=== PATIENT | female | born 1955 | race Caucasian/White ===

== ENCOUNTER → 2020-10-31 17:28 | Outpatient (CLI) | payer OTHER, SELFPAY ==
--- NOTE | ~2020-10-31 | MR_ITS ---
EXAMINATION: MR hip LT wo con DATE: 10/31/2020 18:58 INDICATION: Left hip pain TECHNIQUE: Magnetic resonance imaging (MRI) of the left hip was performed without intravenous contra st. Sequences included full-field axial PD-weighted FS FSE and T1-weighted FSE, coronal of the pelvis with PD-weighted FS FSE and T1-weighted FSE, small field of view of the left hip with axial PD-weigh malika FS FSE, sagittal PD-weighted FS FSE and coronal PD weighted FS FSE. Additional radial T1-weighted FGR oriented orthogonal to the acetabular rim were obtained for evaluation of the labrum. COMPARISON: None FINDINGS: Bones/labrum/cartilage: Alignment is normal. No fracture, avascular necrosis or pathologic marrow replacing process. The pro gression of moderate osteoarthritis at the left hip with increase in size of prominent subarticular c ystic change underlying a region of high-grade chondromalacia at the anterosuperior left acetabulum. No significant change in chondral ulceration with mild subarticular cystic change at the superomedial aspect of the left femoral head. Interval progression of now deep chondral ulceration without degene rative subchondral changes at the anterosuperior aspect of the left femoral head. Chronic degenerativ e tearing of the left acetabular labrum, anterosuperior portion which appears diminutive. Thickening and heterogeneous signal of the superolateral labrum. Again noted is mild subarticular cystic change along the superolateral rim of the acetabulum where there has been interval growth of marginal osteop hytes into the former region of the chondral labral junction. Similar findings are again suggested the right hip on the larger field of view images. There has been decrease in size of a prior large para labral cyst at the posterior right acetabulum. Interval progr ession of moderate to severe lumbar spondylosis. No significant interval change in a couple prominent Tarlov cysts at S2 with chronic remodeling and enlargement of the neural foramina more prominent on the left. Fluid: Likely reactive small bilateral hip joint effusions, left greater than right. Soft tissues: Normal and symmetric muscle bulk and signal in the pelvis and visualized proximal thighs. The iliopso as, gluteal and proximal hamstring tendons are normal. Again seen is mild diffuse bladder wall thicke yanely with trabeculated mucosal surface which could be seen with chronic outlet obstruction or neuroge aisha bladder. Limited evaluation of visceral organs of the pelvis is otherwise unremarkable. No patho logically enlarged pelvic/inguinal lymphadenopathy. IMPRESSION: 1. Interval progression of moderate left hip osteoarthritis with chronic labral degeneration and like ly reactive small left hip joint effusion. Similar findings again suggest at the right hip on the lar bhargav field of view images. 2. Interval progression of moderate to severe lower lumbar spondylosis. Reviewed, dictated and finalized at location B. IMPRESSION: 1. Interval progression of moderate left hip osteoarthritis with chronic labral degeneration and likely reactive small left hip joint effusion. Similar findin gs again suggest at the right hip on the larger field of view images. 2. Interval progression of moderate to severe lower lumbar spondylosis.
== END ==
PROVIDERS: PCP Family Medicine; Visit Provider Orthopaedic Surgery
DX: M16.12 Unilateral primary osteoarthritis, left hip (principal); M47.896 Other spondylosis, lumbar region
CPT/HCPCS: 73721

== ENCOUNTER 2020-11-13 14:01 | Outpatient (CLI) | payer OTHER, SELFPAY ==
--- NOTE | ~2020-11-13 | MM_ITS ---
EXAMINATION: MM screening [facility] BI w addis HISTORY: Screening mammogram TECHNIQUE: Craniocaudal and mediolateral oblique 3-D tomosynthesis images were obtained and synthetic 2-D images were generated. CAD analysis was submitted and interpreted. COMPARISON: 05/04/2018, 12/07/2016, 09/20/2014 BREAST PARENCHYMAL COMPOSITION: The breasts are heterogeneously dense, which may obscure small masses . FINDINGS: There is no evidence of suspicious mass, calcification, or architectural distortion to sugg est malignancy in either breast. There has been no suspicious interval change. IMPRESSION: 1. No mammographic evidence of malignancy. 2. Recommend routine screening mammography in one year. BI-RADS Category 1: Negative Reviewed, dictated and finalized at location A.
--- NOTE | ~2020-11-13 | DEXA_ITS ---
Bone Density Report Name: Emiliana Oro Age: 65 Sex: Female Ethnicity: White Date of : 1955 Indication: postmenopausal; parental hip fracture; seizure disorder; Referring Provider: Moody Conti Study: Bone densitometry was performed. Exam Date: November 13, 2020 Accession number: [id number] Bone Density: Region BMD T-score Z-score Classification AP Spine (L1-L4) 1.143 0.9 2.6 Normal Femoral Neck (Left) 0.692 -1.4 0.1 Osteopenia Total Hip (Left) 0.948 0.0 1.2 Normal Total Hip Bilateral Avg 0.931 -0.1 1.1 Normal Femoral Neck (Right) 0.703 -1.3 0.2 Osteopenia Total Hip (Right) 0.914 -0.2 1.0 Normal World Health Organization criteria for BMD impression classify patients as: Normal (T-score at or above -1.0), Osteopenia (T-score between -1.0 and -2.5), or Osteoporosis (T-score at or below -2.5). 10-year Fracture Risk(1): Major Osteoporotic Fracture 16% Hip Fracture 0.8% Reported Risk Factors: [place] (), Neck BMD=0.692, BMI=28.9, parental fracture (1) FRAX(R) Version 3.08. Fracture probability calculated for an untreated patient. Fracture probability may be lower if the patient has received treatment. Previous Exams: Region Exam Age BMD T-score BMD Change BMD Change Date g/cm2 vs Baseline vs Previous AP Spine(L1-L4) 11/13/2020 65 1.143 0.9 -0.097(-7.8%)# -0.058(-4.8%)* 05/04/2018 62 1.201 1.4 -0.039(-3.1%)# 0.056(4.9%)* 09/20/2014 59 1.145 0.9 -0.095(-7.6%)# -0.011(-0.9%)# 03/23/2012 56 1.156 1.0 -0.084(-6.7%)# -0.080(-6.4%)# 09/02/2006 51 1.235 1.7 -0.004(-0.3%) -0.004(-0.3%) 06/30/2004 48 1.239 1.7 Total Hip(Left) 11/13/2020 65 0.948 0.0 -0.037(-3.7%)# 0.040(4.4%)* 05/04/2018 62 0.908 -0.3 -0.077(-7.8%)# -0.054(-5.7%)* 09/20/2014 59 0.962 0.2 -0.022(-2.3%)# 0.066(7.4%)# 03/23/2012 56 0.896 -0.4 -0.089(-9.0%)# -0.077(-7.9%)# 09/02/2006 51 0.973 0.3 -0.012(-1.2%) -0.012(-1.2%) 06/30/2004 48 0.984 0.3 Total Hip(Right) 11/13/2020 65 0.914 -0.2 -0.046(-4.8%)# -0.009(-1.0%) 05/04/2018 62 0.923 -0.2 -0.037(-3.8%)# -0.001(-0.2%) 09/20/2014 59 0.925 -0.1 -0.035(-3.7%)# -0.066(-6.7%)# 03/23/2012 56 0.991 0.4 0.031(3.2%)# 0.045(4.7%)# 09/02/2006 51 0.946 0.0 -0.014(-1.5%) -0.014(-1.5%) 06/30/2004 48 0.960 0.1 *Denotes significance at 95% confidence level, LSC for AP Spine = 0.022 g/cm2, LSC for Total Hip = 0.027 g/cm2 Clinical Information Provided by Patient:
== END 2020-11-13 14:02 | disposition home or self-care (01) ==
LOC: ANHIMG 14:03
PROVIDERS: PCP Family Medicine; Visit Provider Physician Assistant
DX: Z12.31 Encounter for screening mammogram for malignant neoplasm of breast (principal); Z78.0 Asymptomatic menopausal state; M85.852 Other specified disorders of bone density and structure, left thigh; M85.851 Other specified disorders of bone density and structure, right thigh
CPT/HCPCS: 77063; 77067; 77080

== ENCOUNTER 2020-12-27 12:57 | Outpatient (CLI) | payer OTHER, SELFPAY ==
[2020-12-27 14:36] LABS: Basophils Percent Auto 0.5 % (0.2-1.2); Hematocrit 37.3 % (37.0-47.0); Hemoglobin 11.9 g/dL (12.0-15.0); Immature Granulocyte Absolute 0.02 K/mm3 (0.00-0.031); Immature Granulocyte Percent A 0.3 % (0-0.5); Lymphocytes Absolute Auto 1.98 K/mm3 (0.9-3.2); Lymphocytes Percent Auto 29.8 % (18.3-44.2); Mean Corpuscular HGB Conc 31.9 g/dl (32-36); Mean Corpuscular Volume 90.8 fl (80-100); Mean Platelet Volume 10.3 fl (7.4-10.4); Monocytes Absolute Auto 0.6 K/mm3 (0.1-0.6); Monocytes Percent Auto 9.2 % (2.6-8.5); Neutrophils Percent Auto 60.2 % (45.5-73.1); Platelet Count Result 292 k/mm3 (150-375); Red Blood Count 4.11 M/mm3 (4.2-5.4); Red Cell Distribution Width 12.9 % (11.5-14.5); White Blood Count 6.6 K/mm3 (4.5-10.0)
[2020-12-27 14:45] LABS: Albumin Level 4.4 g/dL (3.5-5.1); Anion Gap 9 mmol/L (8-16); Blood Urea Nitrogen 19 mg/dL (7-17); Calcium 9.3 mg/dL (8.4-10.2); Carbon Dioxide 29 mmol/L (22-30); Chloride 103 mmol/L (98-107); Estimated Glomerular Filt Rate > 60; Glucose 86 mg/dL (65-105); Potassium 4.1 mmol/L (3.4-5.0); Sodium 141 mmol/L (137-145)
[2020-12-27 15:31] LABS: Urine Cotinine NEGATIVE
[2020-12-27 17:12] LABS: Hemoglobin A1C 5.7 % (<5.7)
== END 2020-12-27 12:58 | disposition home or self-care (01) ==
LOC: ANHSURGERY 13:02
PROVIDERS: PCP Family Medicine; Visit Provider Orthopaedic Surgery
DX: M16.12 Unilateral primary osteoarthritis, left hip (principal); Z01.818 Encounter for other preprocedural examination
CPT/HCPCS: 80048; 80307; 82040; 83036; 85025; 87070

== ENCOUNTER → 2021-01-10 04:38 | Outpatient (CLI) | payer OTHER, SELFPAY ==
[2021-01-10 18:47] LABS: SARS-CoV-2 RNA PCR Negative
== END ==
PROVIDERS: PCP Family Medicine; Visit Provider Orthopaedic Surgery
DX: Z01.812 Encounter for preprocedural laboratory examination (principal); Z20.822 Contact with and (suspected) exposure to COVID-19
CPT/HCPCS: C9803; U0003; U0005

== ENCOUNTER 2021-01-13 00:54 | Day surgery (SDC) | payer OTHER, SELFPAY ==
[2020-12-27 13:05] VITALS: BMI 28.9
[2020-12-27 13:59] VITALS: BP 117/75; PULSE 70; RESP 16; TEMP 37.3; O2SAT 97
--- NOTE | 2021-01-10 13:22 | PM.IMHP ---
H&P: HPI History of Present Illness Date/Time: 01/10/21 13:22 65-year-old female patient of who presents today for a left anterior total hip arthroplasty. She has had progressive worsening of her symptoms with her left arthritic hip over the course of last year. She has had a recent MRI scan which shows that she has moderately severe arthritis in the hip with a prominent acetabular cyst. She has been on anti-inflammatories for over year. She is using cane on a more regular basis due to pain in the left groin and anterior lateral hip. She has reached a point where she feels she would rather proceed with total hip arthroplasty at this point continue nonsurgical treatment. <ILEANA Lou - Last Filed: 01/10/21 13:30> Chief Complaint: left hip DJD <ILEANA Lou - Last Filed: 01/10/21 13:30> Review of Systems Review of Systems: All systems reviewed & are unremarkable except as noted in HPI and below <ILEANA Lou - Last Filed: 01/10/21 13:30> [facility] Past Medical History Medical History: Medical History (Updated 01/10/21 @ 15:58 by Bear Peterson MD) Anxiety Depression Gastro-esophageal reflux disease without esophagitis Hypothyroidism, unspecified Osteoarthritis Other hyperlipidemia Overweight (BMI 25.0-29.9) Seizure <ILEANA Lou - Last Filed: 01/10/21 13:30> Family History Family History: Family History Mother Hypertension Family history of cardiovascular disease Family history of Parkinson's disease Grandparent Cerebrovascular accident Sibling Carcinoma of colon, Onset Age: 47 Other Depression Family history of hypercholesterolemia <ILEANA Lou - Last Filed: 01/10/21 13:30> Social History Social History: Social History Years smoked: 5 Tobacco type: cigarettes Smoking end date: 07/26/11 Additional smoking assessment comments: DENIES ANY FORM OF TOBACCO USE Alcohol intake: current Drinks per week: 10 Living arrangements: with friend(s) Spiritual care concerns: No <ILEANA Lou - Last Filed: 01/10/21 13:30> Meds Home Medications and Allergies Home medications: Home Medications Medication Instructions Recorded Confirmed Type simvastatin 40 mg tablet 40 mg PO DAILY #90 tablet 12/08/19 01/10/21 Rx levothyroxine 50 mcg tablet 50 mcg PO DAILY #90 tablet 01/08/20 01/10/21 Rx omeprazole 20 mg capsule,delayed See Rx Instructions .ROUTE 01/29/20 01/10/21 Rx release .COMPLEX #90 cap diclofenac sodium 75 mg 50 mg PO QAM tablet 10/01/20 01/10/21 History tablet,delayed release paroxetine HCl 10 mg tablet 10 mg PO DAILY #90 tablet 10/22/20 01/10/21 Rx calcium carbonate-vitamin D3 2 tablet PO BID 12/27/20 01/10/21 History [Calcium + D] cholecalciferol (vitamin D3) 1,250 mcg PO WEEKLY 12/27/20 01/10/21 History <ILEANA Lou - Last Filed: 01/10/21 13:30> Allergies/Adverse reactions: Allergies Allergy/AdvReac Type Severity Reaction Status Date / Time No Known Allergies Allergy Verified 01/10/21 13:55 <ILEANA Lou - Last Filed: 01/10/21 13:30> Exam Narrative: Exam Narrative: 65-year-old female very alert pleasant. She is 5 ft 4 and 168 lb. She walks with a noticeable limp. She has normal sensation left lower extremity. 2+ dorsalis pedis and trace posterior tibial artery pulse palpable. Normal skin around the hip and groin region. No edema in left lower extremity leg lengths appear to be equal. Her left hip flexes to 120 with moderate groin pain internally rotates to 0 with severe anterior groin pain externally rotates 30 with moderate groin pain. Greater trochanters nontender. . <ILEANA Lou - Last Filed: 01/10/21 13:30> Resp: Auscultation: clear to auscultation bilaterally <ILEANA Lou - Last Filed: 01/10/21 13:30> Cardio: Rate: regula
--- NOTE | 2021-01-10 15:56 | WPDANESEPPF ---
Anes - Initial Pre Proc Eval Procedure: Operation Date: 01/13/21 07:30 Proposed Procedures p Left Total Hip Arthroplasty, Direct Anterior Approach - Aubrey Connolly MD Date/Time: 01/10/21 15:56 Surgeon: Aubrey Connolly MD Pre Op Diagnosis: OA left hip Patient Data Age: 65 Gender: F Height: 1.64 m Weight: 77.6 kg Last Vital Signs Temp 37.3 C 12/27/20 13:59 Pulse 70 12/27/20 13:59 Resp 16 12/27/20 13:59 BP 117/75 12/27/20 13:59 Pulse Ox 97 12/27/20 13:59 Allergies Allergy/AdvReac Type Severity Reaction Status Date / Time No Known Allergies Allergy Verified 01/10/21 13:55 Home Medications Medication Instructions Recorded Confirmed Type simvastatin 40 mg tablet 40 mg PO DAILY #90 tablet 12/08/19 01/10/21 Rx levothyroxine 50 mcg tablet 50 mcg PO DAILY #90 tablet 01/08/20 01/10/21 Rx omeprazole 20 mg capsule,delayed See Rx Instructions .ROUTE 01/29/20 01/10/21 Rx release .COMPLEX #90 cap diclofenac sodium 75 mg 50 mg PO QAM tablet 10/01/20 01/10/21 History tablet,delayed release paroxetine HCl 10 mg tablet 10 mg PO DAILY #90 tablet 10/22/20 01/10/21 Rx calcium carbonate-vitamin D3 2 tablet PO BID 12/27/20 01/10/21 History [Calcium + D] cholecalciferol (vitamin D3) 1,250 mcg PO WEEKLY 12/27/20 01/10/21 History Patient hx anesthesia problems: none Family hx anesthesia problems: none PMFSH Past Medical History Medical History (Updated 01/10/21 @ 15:58 by Bear Peterson MD) Anxiety Depression Gastro-esophageal reflux disease without esophagitis Hypothyroidism, unspecified Osteoarthritis Other hyperlipidemia Overweight (BMI 25.0-29.9) Seizure Family History Family History Mother Hypertension Family history of cardiovascular disease Family history of Parkinson's disease Grandparent Cerebrovascular accident Sibling Carcinoma of colon, Onset Age: 47 Other Depression Family history of hypercholesterolemia Social History Social History Years smoked: 5 Tobacco type: cigarettes Smoking end date: 07/26/11 Additional smoking assessment comments: DENIES ANY FORM OF TOBACCO USE Alcohol intake: current Drinks per week: 10 Living arrangements: with friend(s) Spiritual care concerns: No Anes - Eval Final PreProcedure Day of Procedure 01/10/21 15:56 Patient weight: overweight Heart: regular rate and rhythm Lungs: clear to auscultation and normal air movement Airway: Mallampati scale class II Neurological: alert and oriented Last oral intake: >/= 8 hours ASA classification: II Emergent: no Anesthetic plan: proceed Anesthesia type and monitoring: general ETT Informed Consent: The patient's anesthetic plan and its attendant risks and benefits were discussed with the patient/family/POA. Questions were solicited and answers provided to the satisfaction of the patient/family/POA.
[2021-01-13] VITALS (19 sets, daily range): BP systolic 103–137; BP diastolic 55–81; PULSE 16–89; RESP 10–93; TEMP 36.2–36.8; O2SAT 83–100; BMI 32.1
--- NOTE | ~2021-01-13 | XR_ITS ---
EXAMINATION: XR hip LT 1V w AP pelvis DATE: 01/13/2021 11:45 INDICATION: Anterior proximal left total hip arthroplasty TECHNIQUE: Anteroposterior view of the pelvis excluding the iliac crests and cross-table lateral view s of the left hip were obtained. COMPARISON: 09/12/2018 FINDINGS: Noncemented left total hip arthroplasty which appears well seated in near-anatomic alignment. The hudson tabular component is affixed with a single screw. No fractures. Mild right hip osteoarthritis. Surgic al drain and expected soft tissue gas at the operative bed. IMPRESSION: 1. Expected appearance post left total hip arthroplasty which is in near-anatomic alignment with no f racture or other acute osseous abnormality. Reviewed, dictated and finalized at location A. IMPRESSION: 1. Expected appearance post left total hip arthroplasty which is in near-anatom ic alignment with no fracture or other acute osseous abnormality.
--- NOTE | ~2021-01-13 | XR_ITS ---
EXAMINATION: XR surgery orthopedic DATE: 01/13/2021 11:26 INDICATION: Anterior approach left total hip arthroplasty TECHNIQUE: Frontal fluoroscopic image of the left hip was obtained during procedure performed by Dr. Connolly. Radiologist was not present for the imaging or procedure. The amount of fluoroscopy time use d during this procedure was 0.9 minutes. COMPARISON: None. FINDINGS: Left total hip arthroplasty which appears well-seated in normal alignment. The acetabular component i s affixed with at least a single screw. No fracture. IMPRESSION: 1. Expected appearance during left total hip arthroplasty. Reviewed, dictated and finalized at location A.
[2021-01-13] MEDS: LACTATED RINGERS 1,000 ML 30 ML IV CONT (06:35)
[2021-01-13] MEDS: ACETAMINOPHEN 500 MG TABLET 1000 MG PO ×3 (06:35→17:44)
[2021-01-13] MEDS: TRANEXAMIC ACID 1,000MG/ISO100 1,000 MG/100 ML BAG 200 MG IVPB (06:46)
--- NOTE | 2021-01-13 07:16 | WPDHPUPDATE1 ---
History and Physical Update Update Date/Time: 01/13/21 07:16 History and Physical has been reviewed, including an updated exam of the patient. There are NO changes in the patient's condition. Risks, benefits, and alternatives have been discussed and questions answered. Patient agrees to proceed with procedure.
[2021-01-13] MEDS: ceFAZolin 2 GM/D5W 50 ML 2 GM/50 ML BAG IVPB (07:54)
[2021-01-13] MEDS: ceFAZolin SODIUM 1 GM VIAL 3 GM IRRIGATION (08:38)
[2021-01-13] MEDS: TRANEXAMIC ACID 1,000 MG/10 ML AMPUL 1000 MG IV PUSH (11:09)
[2021-01-13] MEDS: ceFAZolin SODIUM 1 GM VIAL IV PUSH (11:09)
--- NOTE | 2021-01-13 11:33 | W.PM.PROC2 ---
Procedure Note - Detailed Date of Procedure 01/13/21 Pre-op Diagnosis OA left hip Post-op Diagnosis same Procedure Performed Direct anterior approach left total hip arthroplasty Surgeon Aubrey Connolly MD Road Crew Member [place]onte Anesthesia general Indications Pain osteoarthritis Findings Same Description of Procedure Patient was brought to the operating room general anesthesia was administered. She received 2 g Ancef weight based vancomycin 1 g of tranexamic acid preoperatively. The feet were padded and boots applied and she was transferred to the OSI [place] table. SCDs were applied to the legs. The left hip was prepped draped usual fashion. A 10 cm longitudinal incision was made starting 3 cm lateral to the ASIS. Dissection was carried down to the fascia which was longitudinally incised and elevated off the anterior 50% of the tensor fascia cristiano muscle. Interval between tensor fascia cristiano and rectus femoris developed. Crossing branches of ascending branch lateral femoral circumflex vessels were ligated with suture and divided. Capsule was exposed. Hip was abducted internally rotated and gluteus minimus elevated off the lateral capsule. Capsule was incised and a femoral neck osteotomy was performed. The head was removed without difficulty and measured 50 mm in diameter. The acetabulum was exposed and the minimal residual labrum excised. We looked at our neck cut and a saw there was a little bit long still. An additional 5 mm of bone removed from the femoral neck cut at this time. The leg was externally rotated extended in the interval between piriformis tendon and conjoined tendon incised which allowed the conjoined tendon to recessed little bit and allowed the piriformis to flip nicely posteriorly. A little bit of the lateral tip of the lateral capsular flap was excised. With the leg back horizontal acetabulum was exposed and we medialized with a 44 Reamer to the floor of the fovea. We reamed up to 50 mm which did not quite get the periphery. Fifty-one Reamer was fully seated and we lightly touched with the 52 Reamer and impacted the 52 mm cup which obtained excellent press fit. It would not seat the last mm medially. A screw was placed into the ilium. At this point I could see that we had a loose fragment of bone anterior superiorly which represented the acetabular wall in that area we can by the anterior superior acetabular cyst. We removed that loose fragment of bone and thoroughly curetted the cyst which was not visible from the intra-articular reaming but was visible from just anterior superior to the edge of the acetabular shell. When we carefully removed the cyst membrane we were able to pack some bone into the cyst cavity the portion that was contained and we used cancellous bone from the femoral head to do that. We removed inferior osteophyte as well. The 36 mm inner diameter acetabular shell was chosen impacted without difficulty. The leg was ex thoroughly rotated extended and we broached up to a size 3 which had torsional stability. We trialed and with the 1.5 neck the hip was grossly unstable. The 5 neck with stable but a little bit on the loose side still bordering on a little too loose. We looked at this under x-ray and I could see that the 3 stem was not optimally filling the canal. It was at the correct neck height though and we therefore calcar plane the neck onto the 3 broach removed 3 broach and we were able the sink the 4 broach to the level of the calcar plane neck cut and this had excellent stability. It was a more of an appropriate alignment taking it few out of the few degrees of varus the 3 stem was an. We trialed again and the 1.5 was too loose again the 5 was stable. This had a very appropriate feel. Ample shock but stable. With the fluoro we could see that the broach neck construct was at the same height as it was with the preoperative templating. The hip was again dislocated the broach confirmed to be quite stable w
[2021-01-13] MEDS: fentaNYL CITRATE INJ (*CRX) 100 MCG/2 ML VIAL 25 MCG IV PUSH ×8 (12:00→12:58)
[2021-01-13] MEDS: HYDROmorphone HCL INJ (*CRX) 1 MG/ML SYR 0.25 MG IV PUSH ×3 (13:01→13:18)
--- NOTE | 2021-01-13 13:35 | ADMGEN ---
This patient, Emiliana Oro, was admitted to 2 Medical Room 256-. Patient/family oriented to hospital policies and general routines including ID bracelet, bed and alarms, visiting hours, pain management, procedures, bathroom and other care routines, personal items, smoking policy, room service/diet, and visiting hours. Information on how to activate the Rapid Response Team has been discussed. Patient/Family are encouraged to report perceived risks to care and to ask questions if they do not understand what they are told or what they should do.
--- NOTE | 2021-01-13 13:57 | PCPTNOTE ---
Attempted PT eval. Pt drowsy and having pain. Will try again at later time.
[2021-01-13] MEDS: SODIUM CHLORIDE 0.9% IV 1,000 ML 125 ML IV CONT (14:20)
[2021-01-13] MEDS: ONDANSETRON INJ 4 MG/2 ML VIAL IV PUSH (15:46)
[2021-01-13] MEDS: oxyCODONE HCL (*CRX) 5 MG TAB IR PO (17:44)
[2021-01-13] MEDS: CELECOXIB 200 MG CAPSULE PO (18:56)
[2021-01-13] MEDS: SENNA/DOCUSATE SODIUM TABLET 2 TAB PO (21:45)
[2021-01-13] MEDS: APIXABAN 2.5 MG TABLET PO (21:45)
[2021-01-13] MEDS: FAMOTIDINE 20 MG TABLET PO (21:45)
[2021-01-13] MEDS: oxyCODONE HCL (*CRX) 2.5 MG TAB IR PO (21:46)
[2021-01-14] MEDS: ACETAMINOPHEN 500 MG TABLET 1000 MG PO ×3 (00:04→12:18)
[2021-01-14] MEDS: oxyCODONE HCL (*CRX) 2.5 MG TAB IR PO ×4 (00:05→12:18)
[2021-01-14 03:15] VITALS: BP 126/74; PULSE 82; RESP 18; TEMP 36.7; O2SAT 98
[2021-01-14 05:39] LABS: Basophils Percent Auto 0.1 % (0.2-1.2); Hematocrit 27.8 % (37.0-47.0); Hemoglobin 9.1 g/dL (12.0-15.0); Immature Granulocyte Absolute 0.03 K/mm3 (0.00-0.031); Immature Granulocyte Percent A 0.3 % (0-0.5); Lymphocytes Absolute Auto 1.11 K/mm3 (0.9-3.2); Lymphocytes Percent Auto 9.9 % (18.3-44.2); Mean Corpuscular HGB Conc 32.7 g/dl (32-36); Mean Corpuscular Hemoglobin 29.4 pg (26-34); Mean Corpuscular Volume 89.7 fl (80-100); Mean Platelet Volume 10.4 fl (7.4-10.4); Monocytes Percent Auto 8.8 % (2.6-8.5); Neutrophils Percent Auto 80.9 % (45.5-73.1); Platelet Count Result 251 k/mm3 (150-375); Red Cell Distribution Width 13.1 % (11.5-14.5); White Blood Count 11.2 K/mm3 (4.5-10.0)
[2021-01-14 05:48] LABS: Anion Gap 6 mmol/L (8-16); Blood Urea Nitrogen 11 mg/dL (7-17); Calcium 7.9 mg/dL (8.4-10.2); Carbon Dioxide 27 mmol/L (22-30); Chloride 101 mmol/L (98-107); Estimated CRCL calculation 74 ml/min; Estimated Glomerular Filt Rate > 60; Glucose 130 mg/dL (65-105); Potassium 4.4 mmol/L (3.4-5.0); Sodium 134 mmol/L (137-145)
[2021-01-14] MEDS: LEVOTHYROXINE SODIUM 50 MCG TABLET PO (06:02)
--- NOTE | 2021-01-14 06:24 | PM.PNORT ---
Progress Note: A&P Additional Plan POD 1 alert avss , labs-noted, dressing dry, drain to come out this am, pt having min pain at rest moderate pain with ambulation, pt was very sleepy last night-may have been narcotics, reduced the scheduled dose, pt is on celebrex as well. plan to have pt work with PT today then send home later today Subjective Subjective Date/Time Seen: 01/14/21 06:24 Objective Data Vital Signs Vital Signs: Vital Signs - 24 hr 01/13/21 06:30 01/13/21 11:41 01/13/21 11:55 Temperature 36.2 C L 36.5 C Pulse Rate 88 88 75 Respiratory Rate 18 10 L 10 L Blood Pressure 137/80 125/81 128/61 Pulse Oximetry 96 100 100 01/13/21 12:10 01/13/21 12:25 01/13/21 12:40 Temperature Pulse Rate 84 70 77 Respiratory Rate 10 L 17 13 Blood Pressure 123/63 119/79 125/55 L Pulse Oximetry 100 100 98 01/13/21 12:55 01/13/21 13:10 01/13/21 13:25 Temperature Pulse Rate 89 71 77 Respiratory Rate 10 L 13 12 Blood Pressure 120/65 114/65 106/65 Pulse Oximetry 95 98 98 01/13/21 13:30 01/13/21 13:35 01/13/21 13:45 Temperature 36.5 C 36.3 C L Pulse Rate 72 16 L Respiratory Rate 16 93 H Blood Pressure 110/70 110/60 Pulse Oximetry 99 98 83 L 01/13/21 14:15 01/13/21 15:15 01/13/21 18:30 Temperature 36.3 C L 36.6 C 36.3 C L Pulse Rate 87 73 84 Respiratory Rate 16 17 18 Blood Pressure 116/70 103/70 114/74 Pulse Oximetry 98 95 98 01/13/21 19:15 01/13/21 20:00 01/13/21 23:05 Temperature 36.8 C Pulse Rate 81 Respiratory Rate 16 Blood Pressure 117/70 Pulse Oximetry 97 97 97 01/13/21 23:15 01/14/21 03:15 Temperature 36.8 C 36.7 C Pulse Rate 85 82 Respiratory Rate 16 18 Blood Pressure 110/69 126/74 Pulse Oximetry 97 98 Intake/Output Intake/Output: Intake & Output 01/11/21 01/12/21 01/13/21 01/14/21 23:59 23:59 23:59 23:59 Intake Total 2530 550 Output Total 0 1280 Balance 2530 -730 Meds/Results Medications: Active Medications Generic Name Dose Route Start Last Admin Trade Name Freq PRN Reason Stop Dose Admin Acetaminophen 1,000 mg 01/13/21 13:30 01/14/21 05:04 Acetaminophen 500 Mg Tablet PO 1,000 mg Q6HR EDISON Administration Al Hydrox/Mg Hydrox/Simethicone 30 ml 01/13/21 13:30 Mag Hydrox/Al Hydrox/Simeth 30 Ml Udc PO Q6H PRN Indigestion Apixaban 2.5 mg 01/13/21 21:00 01/13/21 21:45 Apixaban 2.5 Mg Tablet PO 02/17/21 09:01 2.5 mg Q12HR EDISON Administration Bisacodyl 10 mg 01/13/21 13:30 Bisacodyl 10 Mg Suppository RECTAL DAILY PRN Constipation Calcium Carbonate 1,000 mg 01/13/21 17:00 01/13/21 21:45 Calcium/Vitamin D 500 Mg Tablet PO 1,000 mg BID EDISON Administration Celecoxib 200 mg 01/14/21 09:00 Celecoxib 200 Mg Capsule PO DAILY EDISON Ergocalciferol 50,000 unit 01/15/21 09:00 Ergocalciferol 50,000 Unit Capsule PO We@0900 EDISON Famotidine 20 mg 01/13/21 21:00 01/13/21 21:45 Famotidine 20 Mg Tablet PO 20 mg Q12HR EDISON Administration Hydroxyzine HCl 50 mg 01/13/21 13:30 Hydroxyzine Hcl 25 Mg Tablet PO Q4H PRN Itching Vancomycin HCl 1,000 mg in 250 mls @ 250 mls/hr 01/13/21 19:00 01/14/21 06:02 Vancomycin 1,000 Mg/D5w 250 Ml IVPB 01/14/21 07:59 250 mls/hr Q12H EDISON Administration Cefazolin Sodium 1 gm in 50 mls @ 100 mls/hr 01/13/21 16:00 01/14/21 00:34 Ancef 1 Gm/D5w 50 Ml Pm IVPB 01/14/21 08:29 100 mls/hr Q8H EDISON Infusion Levothyroxine Sodium 50 mcg 01/14/21 06:30 01/14/21 06:02 Levothyroxine Sodium 50 Mcg Tablet PO 50 mcg DAILY@0630 EDISON Administration Magnesium Hydroxide 30 ml 01/13/21 13:30 Magnesium Hydroxide Susp 30 Ml Udc PO BID PRN Constipation Morphine Sulfate 2 mg 01/13/21 13:30 Morphine Sulfate (*Crx) 2 Mg/Ml Inj IV PUSH Q4H PRN Pain Rated 7-10 Naloxone HCl 0.1 mg 01/13/21 13:30 Naloxone Hcl 0.4 Mg/Ml Vial IV PUSH Q2M PRN Opiate Reversal Ondansetron HCl
--- NOTE | 2021-01-14 06:33 | PM.DS ---
DS: Admitting Diagnosis Admitting Diagnosis Admitting Diagnosis: right hip DJD DS: Discharge Diagnosis Discharge Diagnosis (1) History of total hip arthroplasty: Code(s): Z96.649 - Presence of unspecified artificial hip joint Status: Acute DS: Summary Hospital Course Hospital Course: stable Time Spent with Patient Time attestation: Total time spent providing and/or coordinating discharge services: 65-year-old female who underwent a left anterior total hip arthroplasty on 01/13/2021. Underwent procedure on any complications postoperatively she has been afebrile vital signs stable, neurovascularly she is intact, wound is dry. Has a light dressing over it. Her drain has been removed. She has 50% weight-bearing on the left leg with a walker for the 1st month period time surgery her bones were little soft. She also a cyst in the superior acetabulum that was bone grafted. He is on Eliquis for 5 weeks for DVT prophylaxis. She is on Celebrex 200 mg once a day for the 1st 2 weeks for heterotopic bone prophylaxis. She is taking scheduled Tylenol as well as oxycodone 5 mg for pain. She will also go home on MiraLax and Senokot. Patient was advised to keep leg elevated at home. Hemoglobin on date of discharge is 9.1, patient was asymptomatic from that. She will go home on a regular diet. The patient was advised any questions or concerns when she goes home she should call the office otherwise see her at her appointed dates DS: Data Data Completed and Pending Labs on day of discharge: Labs from last 24 hours 01/14/21 01/14/21 01/13/21 05:31 05:31 06:33 WBC 11.2 H RBC 3.10 L Hgb 9.1 L Hct 27.8 L MCV 89.7 MCH 29.4 MCHC 32.7 RDW 13.1 Plt Count 251 MPV 10.4 Immature Gran % (Auto) 0.3 Neut % (Auto) 80.9 H Lymph % (Auto) 9.9 L Henry % (Auto) 8.8 H Eos % (Auto) 0.0 Baso % (Auto) 0.1 L Lymph # (Auto) 1.11 Henry # (Auto) 1.0 H Eos # (Auto) 0.0 Baso # (Auto) 0.0 Abs Immat Gran (auto) 0.03 Absolute Neuts (auto) 9.0 H Absolute Nucleated RBC 0.0 Nucleated RBC % 0.0 Sodium 134 L Potassium 4.4 Chloride 101 Carbon Dioxide 27 Anion Gap 6 L BUN 11 D Creatinine 0.70 Estim Creat Clear Calc 74 Estimated GFR > 60 Glucose 130 H Calcium 7.9 L Blood Type A Positive Antibody Screen Negative Discharge Plan Discharge Patient Disposition: Home, Self-Care Discharge Instructions: AUBREY CONNOLLY M.D [facility], [place] [id number] [place] [address] POST-OPERATIVE DISCHARGE INSTRUCTIONS ANTERIOR TOTAL HIP ARTHROPLASTY 1. Move toes/feet up and down every hour while awake. 2. Be up walking every hour while awake. 3. Use cane in hand opposite of side of hip surgery or walker as comfort allows. Avoid sitting in a chair unless eating, receiving visitors or using the toilet. 4. When resting, lie on back with leg elevated above heart to minimize swelling. Significant swelling could indicate a blood clot and if this occurs, call the office (or go to the ER) to have a venous ultrasound performed. 5. Wound Care: Keep dry sponge on wound for 2 weeks. Use minimal tape. 6. Follow weight bearing status as instructed. Patient is 50% WB with walker for 1 month 7. May shower with dressing off. Patient Instructions: Pain Management (DC), Hip Arthroscopy (DC) Follow-up/Referrals: Aubrey Connolly MD [Physician] - Keep Reg. Scheduled Appt. Discharge Medications: New acetaminophen 500 mg Tablet 1,000 mg PO Q6HR Qty: 90 RF: 0 Eliquis 2.5 mg Tablet 2.5 mg PO Q12HR Qty: 69 RF: 0 celecoxib [Celebrex] 200 mg Capsule 200 mg PO DAILY Qty: 14 RF: 0 sennosides-docusate sodium [Senokot-S] 8.6-50 mg Tablet 2 tab-cap PO BID Qty: 60 RF: 0 polyethylene glycol 3350 [Miralax] 17 gram Powder In Packet 17 g PO QAM Qty: 30 RF: 0 oxycodo
[2021-01-14 07:15] VITALS: BP 110/54; PULSE 70; RESP 16; TEMP 35.8; O2SAT 100
[2021-01-14] MEDS: APIXABAN 2.5 MG TABLET PO (08:26)
[2021-01-14] MEDS: CELECOXIB 200 MG CAPSULE PO (08:26)
[2021-01-14 08:27] VITALS: RESP 16; O2SAT 100
[2021-01-14] MEDS: polyethylene glycoL 3350 17 GM POWD.PACK PO (08:27)
[2021-01-14] MEDS: PARoxetine 10 MG TABLET PO (08:27)
[2021-01-14] MEDS: FAMOTIDINE 20 MG TABLET PO (08:27)
[2021-01-14] MEDS: SENNA/DOCUSATE SODIUM TABLET 2 TAB PO (08:27)
[2021-01-14] MEDS: SIMVASTATIN 20 MG TABLET 40 MG PO (08:28)
--- NOTE | 2021-01-14 08:48 | WPDANESPN ---
Anes - Prog Note Post-Op Date/Time: 01/14/21 08:48 Cardiovascular status: normal Respiratory status: normal Airway patency: baseline Mental status: baseline Post-Op hydration status: normal Vital Signs: Last Vital Signs Temp 36.7 C 01/14/21 03:15 Pulse 82 01/14/21 03:15 Resp 18 01/14/21 03:15 BP 126/74 01/14/21 03:15 Pulse Ox 98 01/14/21 03:15 Pain Score (VAS): 3 I/O: Intake & Output 01/13/21 01/14/21 01/14/21 23:59 07:59 15:59 Intake Total 2230 850 360 Output Total 0 1280 Balance 2230 -430 360 Laboratory Tests 01/14/21 05:31 01/14/21 05:31 01/14/21 01/14/21 05:31 05:31 WBC 11.2 H RBC 3.10 L Hgb 9.1 L Hct 27.8 L MCV 89.7 MCH 29.4 MCHC 32.7 RDW 13.1 Plt Count 251 MPV 10.4 Immature Gran % (Auto) 0.3 Neut % (Auto) 80.9 H Lymph % (Auto) 9.9 L Mccone % (Auto) 8.8 H Eos % (Auto) 0.0 Baso % (Auto) 0.1 L Lymph # (Auto) 1.11 Mccone # (Auto) 1.0 H Eos # (Auto) 0.0 Baso # (Auto) 0.0 Abs Immat Gran (auto) 0.03 Absolute Neuts (auto) 9.0 H Absolute Nucleated RBC 0.0 Nucleated RBC % 0.0 Sodium 134 L Potassium 4.4 Chloride 101 Carbon Dioxide 27 Anion Gap 6 L BUN 11 D Creatinine 0.70 Estim Creat Clear Calc 74 Estimated GFR > 60 Glucose 130 H Calcium 7.9 L Post-procedural complaints: none Patient Feedback: Patient satisfied with anesthetic care.
== END 2021-01-14 13:00 | disposition home or self-care (01) ==
LOC: ANHSURGERY 06:04 → ANH2MED 13:32
PROVIDERS: Physician Assistant Surgical; PCP Family Medicine; Visit Provider Orthopaedic Surgery
PROC: (CPT 27130; principal; 2021-01-13 07:30)
DX: M16.12 Unilateral primary osteoarthritis, left hip (principal); E78.2 Mixed hyperlipidemia; E03.9 Hypothyroidism, unspecified; K21.9 Gastro-esophageal reflux disease without esophagitis; F41.8 Other specified anxiety disorders; Z87.891 Personal history of nicotine dependence
CPT/HCPCS: 27130; 36415; 73501; 80048; 80307; 82040; 83036; 85025; 86850; 86900; 86901; 87070; 97110; 97116; 97161; 97165; 97530; 97535; A9270; C1776; C9803; J0171; J0690; J1100; J1170; J2270; J2405; J2704; J2710; J2795; J3010; J3370; J7030; J7120; U0003; U0005

== ENCOUNTER 2021-01-22 11:30 | Outpatient (CLI) | payer OTHER, SELFPAY ==
--- NOTE | ~2021-01-22 | US_ITS ---
EXAMINATION: US venous doppler [facility] DATE: 01/22/2021 12:15 INDICATION: Left lower limb swelling TECHNIQUE: Ahmadi scale images without and with compression and Doppler images of the left lower extrem ity veins were obtained. COMPARISON: None FINDINGS: The left common femoral vein, profunda femoral vein, femoral vein, popliteal vein, peroneal trunk, posterior tibial veins, and greater saphenous vein are patent. IMPRESSION: 1. Patent left lower extremity veins. No evidence of deep venous thrombosis. Reviewed, dictated and finalized at location B.
== END 2021-01-22 11:31 | disposition home or self-care (01) ==
PROVIDERS: PCP Family Medicine; Visit Provider Orthopaedic Surgery
DX: M79.89 Other specified soft tissue disorders (principal)
CPT/HCPCS: 93971

== ENCOUNTER 2021-11-13 00:19 | Day surgery (SDC) | payer MEDICARE, OTHER, SELFPAY ==
[2021-08-20 08:52] VITALS: BMI 27.5
[2021-09-25 16:01] VITALS: BMI 27.5
[2021-11-05 11:57] VITALS: BMI 27.5
--- NOTE | 2021-11-12 12:20 | WPDANESEPPF ---
Anes - Initial Pre Proc Eval Procedure: Operation Date: 11/13/21 08:00 Proposed Procedures p Screening Colonoscopy - Jordon Mckeon MD Date/Time: 11/12/21 12:20 Surgeon: Jordon Mckeon MD Pre Op Diagnosis: hx of colon polyps, family hx of colon ca Patient Data Age: 66 Gender: F Height: 1.65 m Weight: 75 kg Allergies Allergy/AdvReac Type Severity Reaction Status Date / Time No Known Allergies Allergy Verified 11/13/21 06:52 Home Medications Medication Instructions Recorded Confirmed Type acetaminophen 1,000 mg PO Q6HR #90 tablet 01/14/21 11/13/21 Rx pantoprazole 40 mg tablet,delayed 40 mg PO QAM #90 tablet 05/23/21 11/13/21 Rx release fluoxetine 20 mg capsule 20 mg PO DAILY #90 cap 07/11/21 11/13/21 Rx celecoxib 200 mg capsule 200 mg PO DAILY #90 cap 07/31/21 11/13/21 Rx levothyroxine 50 mcg PO DAILY 11/05/21 11/13/21 History simvastatin 40 mg PO DAILY 11/05/21 11/13/21 History Patient hx anesthesia problems: none Family hx anesthesia problems: none Results Review: All pre-operative results and documents have been reviewed as part of the pre-operative evaluation. [facility] Past Medical History Medical History Anxiety Depression Gastro-esophageal reflux disease without esophagitis Hypothyroidism, unspecified Osteoarthritis Other hyperlipidemia Overweight (BMI 25.0-29.9) Seizure Surgical History Surgical History History of left hip replacement December, Family History Family History Mother Hypertension Family history of cardiovascular disease Family history of Parkinson's disease Grandparent Cerebrovascular accident Sibling Carcinoma of colon, Onset Age: 47 Other Depression Family history of hypercholesterolemia Social History Social History Smoking status: Never smoker Additional smoking assessment comments: DENIES ANY FORM OF TOBACCO USE Alcohol intake: current Drinks per week: 10 Substance use: never Substance use type: does not use Living arrangements: with family Gender identity (if verbalized by the patient): Female Spiritual care concerns: No Agree to blood products: Yes Anes - Eval Final PreProcedure Day of Procedure 11/12/21 12:20 Patient weight: overweight Heart: regular rate and rhythm Lungs: clear to auscultation and normal air movement Airway: Mallampati scale class II Neurological: alert and oriented Last oral intake: >/= 8 hours ASA classification: III Emergent: no Anesthetic plan: proceed Anesthesia type and monitoring: general GIVS and standard monitoring Results Review: All pre-operative results and documents have been reviewed as part of the pre-operative evaluation. Informed Consent: The patient's anesthetic plan and its attendant risks and benefits were discussed with the patient/family/POA. Questions were solicited and answers provided to the satisfaction of the patient/family/POA.
[2021-11-13 06:53] VITALS: BP 133/88; PULSE 93; RESP 18; TEMP 36.3; O2SAT 97
[2021-11-13] MEDS: LACTATED RINGERS 1,000 ML 150 ML IV CONT (07:05)
[2021-11-13] MEDS: AMPICILLIN 2 GM/NS 100 ML 2 GM/100 ML BAG IVPB (07:06)
--- NOTE | 2021-11-13 07:50 | WPDGICN ---
Assessment and Plan Assessment and plan (1) History of colon polyps: Code(s): Z86.010 - Personal history of colonic polyps Status: Acute Assessment and Plan: Patient has a history of colon polyps most recently 2014. Plan is for surveillance colonoscopy now and consider this a 5 year intervals in the future. (2) Family hx of colon cancer: Code(s): Z80.0 - Family history of malignant neoplasm of digestive organs Status: Acute Assessment and Plan: Patient's sister had colon cancer at age 47. Plan is for surveillance colonoscopy now and at 5 year intervals in the future. GI Consult Note Consult date/time: 11/13/21 07:50 HPI: Emiliana Oro is a 66 year old female Presents for screening colonoscopy. Patient's current weight appetite and bowel movements are normal. She denies abdominal pain. She has had no bleeding. Family history is significant that her sister had colon cancer. Patient herself had colon polyps at the time of last colonoscopy 2014. She presents today for neoplasia screening colonoscopy. Review of Systems Review of Systems: All systems reviewed & are unremarkable except as noted in HPI and below PMFSH Past Medical History Medical History Anxiety Depression Gastro-esophageal reflux disease without esophagitis Hypothyroidism, unspecified Osteoarthritis Other hyperlipidemia Overweight (BMI 25.0-29.9) Seizure Surgical History Surgical History History of left hip replacement December, Family History Family History Mother Hypertension Family history of cardiovascular disease Family history of Parkinson's disease Grandparent Cerebrovascular accident Sibling Carcinoma of colon, Onset Age: 47 Other Depression Family history of hypercholesterolemia Social History Social History Smoking status: Never smoker Additional smoking assessment comments: DENIES ANY FORM OF TOBACCO USE Alcohol intake: current Drinks per week: 10 Substance use: never Substance use type: does not use Living arrangements: with family Gender identity (if verbalized by the patient): Female Spiritual care concerns: No Agree to blood products: Yes Meds Home Medications and Allergies Home Medications Medication Instructions Recorded Confirmed Type acetaminophen 1,000 mg PO Q6HR #90 tablet 01/14/21 11/13/21 Rx pantoprazole 40 mg tablet,delayed 40 mg PO QAM #90 tablet 05/23/21 11/13/21 Rx release fluoxetine 20 mg capsule 20 mg PO DAILY #90 cap 07/11/21 11/13/21 Rx celecoxib 200 mg capsule 200 mg PO DAILY #90 cap 07/31/21 11/13/21 Rx levothyroxine 50 mcg PO DAILY 11/05/21 11/13/21 History simvastatin 40 mg PO DAILY 11/05/21 11/13/21 History Allergies Allergy/AdvReac Type Severity Reaction Status Date / Time No Known Allergies Allergy Verified 11/13/21 06:52 Vital Signs Vital Signs - 24 hr 11/13/21 06:53 Temperature 97.3 F L Pulse Rate 93 Respiratory Rate 18 Blood Pressure 133/88 Pulse Oximetry 97 Exam Narrative: Physical exam reveals patient be alert. Vital signs stable. HEENT exam is unremarkable. Patient is anicteric. Lungs are clear to auscultation and percussion. Heart is without murmur or extra sounds. Abdominal exam bowel sounds are present soft nontender with no organomegaly. Digital external rectal exam is normal.
[2021-11-13 08:25] VITALS: BP 109/66; PULSE 81; RESP 18; O2SAT 93
[2021-11-13 08:35] VITALS: BP 113/69; PULSE 78; RESP 16; O2SAT 95
[2021-11-13 08:45] VITALS: BP 129/79; PULSE 70; RESP 14; O2SAT 97
== END 2021-11-13 08:54 | disposition home or self-care (01) ==
PROVIDERS: PCP Family Medicine; Visit Provider Internal Medicine Gastroenterology
PROC: 0DJD8ZZ Inspection of Lower Intestinal Tract, Via Natural or Artificial Opening Endoscopic (ICD-10-PCS; CPT 45378; principal; 2021-11-13 08:00)
DX: Z12.11 Encounter for screening for malignant neoplasm of colon (principal); K64.8 Other hemorrhoids; Z86.010 Personal history of colon polyps; Z80.0 Family history of malignant neoplasm of digestive organs; E78.49 Other hyperlipidemia; K21.9 Gastro-esophageal reflux disease without esophagitis; F41.8 Other specified anxiety disorders
CPT/HCPCS: G0105; J0290; J2704; J7120

== ENCOUNTER 2022-01-05 01:25 | Day surgery (SDC) | payer MEDICARE, OTHER, SELFPAY ==
[2022-01-01 11:41] VITALS: BMI 28.0
[2022-01-05 08:29] VITALS: BP 137/104; PULSE 74; RESP 18; TEMP 36.7; O2SAT 97
[2022-01-05] MEDS: LACTATED RINGERS 1,000 ML 150 ML IV CONT (08:40)
[2022-01-05] MEDS: AMPICILLIN 2 GM/NS 100 ML 2 GM/100 ML BAG IVPB (08:48)
--- NOTE | 2022-01-05 08:57 | SUR.PREOP ---
DR BUI NOTIFIED OF PT'S BLOOD PRESSURE 137/104, HR 74. NO NEW ORDERS.
--- NOTE | 2022-01-05 08:58 | WPDANESEPPF ---
Anes - Initial Pre Proc Eval Procedure: Operation Date: 01/05/22 09:30 Proposed Procedures p Esophagogastroduodenoscopy - Jordon Mckeon MD Date/Time: 01/05/22 08:58 Surgeon: Jordon Mckeon MD Pre Op Diagnosis: dysphagia Patient Data Age: 66 Gender: F Height: 1.65 m Weight: 77.2 kg Last Vital Signs Temp 36.7 C 01/05/22 08:29 Pulse 74 01/05/22 08:29 Resp 18 01/05/22 08:29 BP 137/104 H 01/05/22 08:29 Pulse Ox 97 01/05/22 08:29 O2 Del Method Room Air 01/05/22 08:29 Allergies Allergy/AdvReac Type Severity Reaction Status Date / Time No Known Allergies Allergy Verified 01/05/22 08:28 Home Medications Medication Instructions Recorded Confirmed Type levothyroxine 50 mcg tablet 50 mcg PO DAILY 11/05/21 01/01/22 History simvastatin 40 mg tablet 40 mg PO DAILY 11/05/21 01/01/22 History pantoprazole 40 mg tablet,delayed See Rx Instructions .Route 12/02/21 01/01/22 Rx release .COMPLEX #90 tabs paroxetine HCl 20 mg tablet 20 mg PO DAILY #90 tabs 12/04/21 01/01/22 Rx cholecalciferol (vitamin D3) 50 50 mcg PO DAILY 12/11/21 01/01/22 History mcg (2,000 unit) capsule Patient hx anesthesia problems: none Family hx anesthesia problems: none Results Review: All pre-operative results and documents have been reviewed as part of the pre-operative evaluation. [facility] Past Medical History Medical History (Updated 12/30/21 @ 15:27 by Stefany Park, ROSHNI) Anxiety Depression Gastro-esophageal reflux disease without esophagitis GERD (gastroesophageal reflux disease) Hypothyroidism, unspecified Obesity Osteoarthritis Other hyperlipidemia Overweight (BMI 25.0-29.9) Seizure Surgical History Surgical History History of left hip replacement December, Family History Family History Mother Hypertension Family history of cardiovascular disease Family history of Parkinson's disease Grandparent Cerebrovascular accident Sibling Carcinoma of colon, Onset Age: 47 Other Depression Family history of hypercholesterolemia Social History Social History Smoking status: Never smoker Additional smoking assessment comments: DENIES ANY FORM OF TOBACCO USE Alcohol intake: current Drinks per week: 10 Substance use: never Substance use type: does not use Living arrangements: with friend(s) Additional living arrangements comments: significant other Gender identity (if verbalized by the patient): Female Spiritual care concerns: No Agree to blood products: Yes Anes - Eval Final PreProcedure Day of Procedure 01/05/22 08:58 Patient weight: overweight Heart: regular rate and rhythm Lungs: clear to auscultation and normal air movement Airway: Mallampati scale class II Neurological: alert and oriented Last oral intake: >/= 8 hours ASA classification: III Emergent: no Anesthetic plan: proceed Anesthesia type and monitoring: general GIVS and standard monitoring Results Review: All pre-operative results and documents have been reviewed as part of the pre-operative evaluation. Informed Consent: The patient's anesthetic plan and its attendant risks and benefits were discussed with the patient/family/POA. Questions were solicited and answers provided to the satisfaction of the patient/family/POA.
--- NOTE | 2022-01-05 09:00 | PM.IMHP ---
H&P: HPI History of Present Illness Date/Time: 01/05/22 09:00 Chief Complaint: Choking and coughing with eating. Narrative: This is a 66-year-old white female patient who presents for EGD. She states she has a long history of GE reflux disease with heartburn. She takes pantoprazole 40mg p.o. daily then general control symptoms however recently has had a flare occasional will have breakthrough heartburn. Patient reports that she now has coughing and choking with eating that she is concerned may be related to acid reflux. She denies any overt difficulty swallowing. She does feel a fullness in her upper abdomen after eating. She denies any weight loss or bleeding. Recent past history is significant for a colonoscopy. She does have a history of colon polyps. And a family history of colon cancer. Screening colonoscopy several months ago revealed only hemorrhoids. She has anticipated return for colonoscopy in 5 years. Review of Systems Review of Systems: Review of systems noncontributory. [facility] Past Medical History Medical History (Updated 12/30/21 @ 15:27 by Stefany Park APRN) Anxiety Depression Gastro-esophageal reflux disease without esophagitis GERD (gastroesophageal reflux disease) Hypothyroidism, unspecified Obesity Osteoarthritis Other hyperlipidemia Overweight (BMI 25.0-29.9) Seizure Surgical History Surgical History History of left hip replacement December, Family History Family History Mother Hypertension Family history of cardiovascular disease Family history of Parkinson's disease Grandparent Cerebrovascular accident Sibling Carcinoma of colon, Onset Age: 47 Other Depression Family history of hypercholesterolemia Social History Social History Smoking status: Never smoker Additional smoking assessment comments: DENIES ANY FORM OF TOBACCO USE Alcohol intake: current Drinks per week: 10 Substance use: never Substance use type: does not use Living arrangements: with friend(s) Additional living arrangements comments: significant other Gender identity (if verbalized by the patient): Female Spiritual care concerns: No Agree to blood products: Yes Meds Home Medications and Allergies Home Medications Medication Instructions Recorded Confirmed Type levothyroxine 50 mcg tablet 50 mcg PO DAILY 11/05/21 01/01/22 History simvastatin 40 mg tablet 40 mg PO DAILY 11/05/21 01/01/22 History pantoprazole 40 mg tablet,delayed See Rx Instructions .Route 12/02/21 01/01/22 Rx release .COMPLEX #90 tabs paroxetine HCl 20 mg tablet 20 mg PO DAILY #90 tabs 12/04/21 01/01/22 Rx cholecalciferol (vitamin D3) 50 50 mcg PO DAILY 12/11/21 01/01/22 History mcg (2,000 unit) capsule Allergies Allergy/AdvReac Type Severity Reaction Status Date / Time No Known Allergies Allergy Verified 01/05/22 08:28 Vital Signs Vital Signs - 24 hr 01/05/22 08:29 Temperature 98.1 F Pulse Rate 74 Respiratory Rate 18 Blood Pressure 137/104 H Pulse Oximetry 97 Oxygen Delivery Room Air Exam Narrative: Physical exam reveals patient to be alert. Vital signs stable. HEENT exam unremarkable. Patient is anicteric. Lungs are clear to auscultation and percussion. Heart is without murmur or extra sounds. Abdominal exam bowel sounds present soft nontender with no organomegaly. Assessment and Plan Assessment and plan (1) GERD (gastroesophageal reflux disease): Code(s): K21.9 - Gastro-esophageal reflux disease without esophagitis Status: Acute Assessment and Plan: Patient presents today for EGD because of chronic GE reflux. She does have some choking symptoms. Where she he after eating she has to cough. It may be related to acid reflux. Plan is for EGD to exclude esophagitis o
[2022-01-05] MEDS: SIMETHICONE ORAL SUSPENSION 20 MG/0.3 ML 30 ML BOTTLE 0.6 ML IRRIGATION (09:39)
[2022-01-05 09:45] VITALS: BP 125/70; PULSE 72; RESP 17; O2SAT 95
[2022-01-05 09:55] VITALS: BP 112/68; PULSE 68; RESP 17; O2SAT 96
[2022-01-05 10:05] VITALS: BP 119/79; PULSE 72; RESP 17; O2SAT 99
== END 2022-01-05 10:12 | disposition home or self-care (01) ==
PROVIDERS: PCP Family Medicine; Visit Provider Internal Medicine Gastroenterology
PROC: 0DJ08ZZ Inspection of Upper Intestinal Tract, Via Natural or Artificial Opening Endoscopic (ICD-10-PCS; CPT 43235; principal; 2022-01-05 09:30)
DX: Q39.4 Esophageal web (principal); K21.9 Gastro-esophageal reflux disease without esophagitis; E78.2 Mixed hyperlipidemia; E03.9 Hypothyroidism, unspecified; F41.9 Anxiety disorder, unspecified; F32.A Depression, unspecified; E66.9 Obesity, unspecified; Z68.28 Body mass index [BMI] 28.0-28.9, adult; Z80.0 Family history of malignant neoplasm of digestive organs; Z86.010 Personal history of colon polyps
CPT/HCPCS: 43235; 43450; J0290; J2704; J7120

== ENCOUNTER → 2022-05-13 13:27 | Outpatient (CLI) | payer MEDICARE, OTHER, SELFPAY ==
--- NOTE | ~2022-05-13 | XR_ITS ---
EXAM: XR lumbar spine 2-3V DATE: 05/13/2022 13:46 HISTORY: no injury low back pain for several weeks . COMPARISON: 03/01/2006. FINDINGS: Decreased mineralization. Partially visualized hip arthroplasty. 5 nonrib-bearing lumbar-ty pe vertebral bodies. Pedicles intact. Normal vertebral body alignment. Vertebral body heights preserv ed. Multilevel disc space narrowing and marginal osteophytosis, severe at L5-S1. Bridging osteophytes at multiple levels and also incidentally noted in the lower thoracic spine. Multilevel facet scleros is and hypertrophy. No fracture or dislocation. IMPRESSION: Severe degenerative disc disease at L5-S1. Multilevel severe facet arthropathy. Reviewed, dictated and finalized at location K.
== END ==
PROVIDERS: PCP Emergency Medicine; Visit Provider Physician Assistant
DX: M54.50 Low back pain, unspecified (principal); M51.37 Other intervertebral disc degeneration, lumbosacral region
CPT/HCPCS: 72100

== ENCOUNTER → 2022-06-29 07:09 | Outpatient (CLI) | payer MEDICARE, OTHER, SELFPAY ==
--- NOTE | ~2022-06-29 | MR_ITS ---
EXAMINATION: MR lumbar spine wo con DATE: 06/29/2022 07:38 INDICATION: Low back pain TECHNIQUE: Magnetic resonance imaging (MRI) of the lumbar spine was performed without intravenous con trast. Sequences included sagittal T2-weighted FSE, sagittal T2-weighted FS FSE, sagittal T1-weighted FSE, and axial T2-weighted FSE. COMPARISON: None FINDINGS: Alignment is normal. Vertebral body heights are normal. Small Schmorl's node along the both sides of the L3-L4 disc space. There is prominent endplate osteophytes along the right anterior margin of radha ral vertebral bodies in the lower thoracic and upper lumbar spine. Fibrofatty degenerative endplate c hanges most prominent at the left posterior aspects of the L3-L4 and L5-S1 disc spaces. Small region of focal fatty degenerative endplate change along the right anterior margin of the superior endplate of L2. Marrow signal is otherwise unremarkable. Prominent bilateral S2 Tarlov cysts with remodeling o f the neural foramina evident on pelvic CT dated 03/26/2005. Moderate disc height loss at L5-S1. Mild d isc height loss at T10-T11. Slight disc desiccation without significant disc height loss at L1-L2 thr ough L4-L5. The conus medullaris terminates at L1-L2. There is normal signal in the caudal spinal cor d. Paravertebral soft tissues are unremarkable. The following disc levels are specifically discussed: T12-L1: The disc does not extend beyond the endplate margin. There is mild bilateral facet joint oste oarthritis. There is no neural foraminal stenosis. There is no central canal stenosis. L1-L2: Disc is mildly bulging. There is mild right and mild to moderate left facet joint osteoarthrit is. There is mild left and minimal right neural foraminal stenosis. There is mild central canal steno sis. L2-L3: Disc is bulging with annular fissure. There is mild bilateral facet joint osteoarthritis. Ther e is mild bilateral neural foraminal stenosis. There is mild central canal stenosis. L3-L4: Disc is bulging. There is hypertrophy of the ligamentum flavum. There is mild left and mild to moderate right facet joint osteoarthritis. There is mild to moderate bilateral neural foraminal sten osis. There is mild to moderate central canal stenosis. L4-L5: Disc is mildly bulging with annular fissure. There is hypertrophy of the ligamentum flavum. T here is moderate left and severe right facet joint osteoarthritis. There is moderate bilateral neural foraminal stenosis. There is moderate to severe central canal stenosis with minimal discernible CSF signal along the centrally clustered nerve roots. L5-S1: Disc is bulging with annular fissure. There is mild to moderate left and moderate right facet joint osteoarthritis. There is mild to moderate bilateral neural foraminal stenosis. There is no cent ral canal stenosis. IMPRESSION: 1. Mild to moderate lower lumbar predominant spondylosis most notable for moderate to severe central canal stenosis at L4-L5. Reviewed, dictated and finalized at location A. ENSATION ADVISOR IMPRESSION: 1. Mild to moderate lower lumbar predominant spondylosis most notable for moder ate to severe central canal stenosis at L4-L5.
== END ==
PROVIDERS: PCP Emergency Medicine; Visit Provider Emergency Medicine
DX: M54.9 Dorsalgia, unspecified (principal); M47.816 Spondylosis without myelopathy or radiculopathy, lumbar region
CPT/HCPCS: 72148

== ENCOUNTER → 2022-08-06 15:16 | Outpatient (CLI) | payer MEDICARE, OTHER, SELFPAY ==
--- NOTE | ~2022-08-06 | US_ITS ---
US renal BI DATE: 08/06/2022 15:34 INDICATION: Right flank pain, low back pain TECHNIQUE: Real-time imaging of kidneys and urinary bladder COMPARISON: 07/07/2005 CT abdomen FINDINGS: Right kidney measures 10.5 cm length, left kidney 10.6 cm. No renal mass lesion or hydronep hrosis is detected. The urinary bladder is unremarkable. IMPRESSION: Negative examination Reviewed, dictated and finalized at Location A. Reviewed, dictated and finalized at location A. RAL ASSIGNMENT REPORTER IMPRESSION: Negative examination
== END ==
PROVIDERS: PCP Emergency Medicine; Visit Provider Emergency Medicine
DX: R10.9 Unspecified abdominal pain (principal)
CPT/HCPCS: 76775

== ENCOUNTER 2022-11-17 09:26 | Outpatient (CLI) | payer MEDICARE, OTHER, SELFPAY ==
--- NOTE | ~2022-11-17 | MM_ITS ---
EXAMINATION: MM screening anuja BI w addis HISTORY: Screening mammogram TECHNIQUE: Craniocaudal and mediolateral oblique 3-D tomosynthesis images were obtained and synthetic 2-D images were generated. CAD analysis was submitted and interpreted. COMPARISON: November 13, 2020, May 04, 2018, December 07, 2016 bilateral screening mammogram examinations BREAST PARENCHYMAL COMPOSITION: There are scattered areas of fibroglandular density. FINDINGS: There is no evidence of suspicious mass, calcification, or architectural distortion to sugg est malignancy in either breast. There has been no suspicious interval change. IMPRESSION: 1. No mammographic evidence of malignancy. 2. Recommend routine screening mammography in one year. BI-RADS Category 1: Negative Reviewed, dictated and finalized at location A.
--- NOTE | ~2022-11-17 | DEXA_ITS ---
Bone Density Report Name: ODESSA JEFFERY Age: 67 Sex: Female Ethnicity: White Date of : 1955 Indication: postmenopausal; screening for osteoporosis; Referring Provider: KRISTYN GORDON Study: Bone densitometry was performed. Exam Date: November 17, 2022 Accession number: [id number] Bone Density: Region BMD T-score Z-score Classification AP Spine(L1-L4) 1.130 0.8 2.6 Normal Femoral Neck (Right) 0.742 -1.0 0.6 Normal Total Hip (Right) 0.880 -0.5 0.8 Normal World Health Organization criteria for BMD impression classify patients as: Normal (T-score at or above -1.0), Osteopenia (T-score between -1.0 and -2.5), or Osteoporosis (T-score at or below -2.5). 10-year Fracture Risk: FRAX not reported because: All T-scores for Spine Total, Hip Total, Femoral Neck at or above -1.0 Previous Exams: Region Exam Age BMD T-score BMD Change BMD Change Date g/cm2 vs Baseline vs Previous AP Spine (L1-L4) 11/17/2022 67 1.130 0.8 -0.026 (-2.2%) -0.013 (-1.1%) 11/13/2020 65 1.143 0.9 -0.013 (-1.1%) -0.058 (-4.8%) 05/04/2018 62 1.201 1.4 0.045 (3.9%)# 0.056 (4.9%)* 09/20/2014 59 1.145 0.9 -0.011 (-0.9%) -0.011 (-0.9%) 03/23/2012 56 1.156 1.0 Total Hip(Right) 11/17/2022 67 0.880 -0.5 -0.110 (-11.1% -0.034 (-3.7%) 11/13/2020 65 0.914 -0.2 -0.076 (-7.7%) -0.009 (-1.0%) 05/04/2018 62 0.923 -0.2 -0.067 (-6.8%) -0.001 (-0.2%) 09/20/2014 59 0.925 -0.1 -0.066 (-6.7%) -0.066 (-6.7%) 03/23/2012 56 0.991 0.4 *Denotes significance at 95% confidence level, LSC for AP Spine = 0.022 g/cm2, LSC for Total Hip = 0.027 g/cm2 # Denotes dissimilar scan types or analysis methods Clinical Information Provided by Patient: Has used the following medications: Vitamin D Patient maximum height was 65 Menopause Age: 48 No regular weight bearing exercise Drinks caffeinated beverages Onset of menses at age 13 Number of children 4 Impression: The patient has normal bone mass. The BMD for the Total Hip(Right) decreased, changing by -3.7% since the last DXA exam. Discussion: BONE DENSITY IS ABOVE THE MINIMUM DESIRABLE LEVEL AT ALL SKELETAL SITES TESTED. This patient?s bone mineral density is above the minimum desirable level (T-score -1.0 or better) at all sites measured. The patient should follow a healthful lifestyle (good nutrition with adequate calcium and vitamin D, and appropriate weight-bearing exercise). Follow-Up: Consider repeating this study in 3 to 4 years to reassess this patient's s
== END 2022-11-17 09:27 | disposition home or self-care (01) ==
PROVIDERS: PCP Emergency Medicine; Visit Provider Physician Assistant
DX: Z12.31 Encounter for screening mammogram for malignant neoplasm of breast (principal); Z13.820 Encounter for screening for osteoporosis; Z78.0 Asymptomatic menopausal state
CPT/HCPCS: 77063; 77067; 77080

== ENCOUNTER 2022-12-09 08:24 | Outpatient (CLI) | payer MEDICARE, OTHER, SELFPAY ==
--- NOTE | 2022-12-25 02:10 | WPDHOMESLEEP ---
Sleep Study - Home Unattended Date of Study: 12/09/22 Ordering Provider: Moody Conti PA-C Interpreting Provider: Stephanie Cho MD Home Sleep Study Type: Watch PAT Height: 1.65 m Weight: 76.204 kg Body Mass Index: 27.9 Neck Circumference (inches): 15.5 [place]: 18 Reason for Sleep Study Hypersomnolence Sleep History Emiliana Oro is a 67-year-old woman with snoring for more than 5 years. The severity has increased. She has acid reflux, currently being treated. There is a family history of sleep disorders, her brother uses CPAP. She never awakens from sleep feeling short of breath. She rarely awakens at night with heartburn, belching or coughing. She constantly snores loudly enough that others complain about it. She occasionally has difficulty sleeping with a cold. She does not gasp for breath at night. She frequently has breathing problems at night reported to her by others. She occasionally sweats excessively at night and occasionally notices her heart pounding or beating irregularly at night. She occasionally falls asleep during the day, frequently falls asleep involuntarily but denies falling asleep while driving. She does not have loss of muscle tone with strong emotion. She does not have daytime difficulties due to excessive sleepiness. She does not feel paralyzed on waking or falling asleep. She rarely has vivid dreamlike scenes upon awakening or falling asleep. She does not feel afraid to go to sleep. She occasionally has nightmares. She occasionally has dream recall. She occasionally has racing thoughts. She occasionally feels sad, depressed, or anxious. She occasionally has muscular tension. She occasionally notices parts of her body jerking. She occasionally kicks at night. She occasionally has crawling and aching feelings in her legs. She frequently has leg pain at night. She denies morning jaw pain and denies grinding her teeth during sleep. She frequently is bothered by pain during the day. She occasionally is awakened by pain at night. She occasionally wakes up feeling stiff in the morning with sore achy muscles. She frequently wakes up with pain in the neck and spine. Normal bedtime is 12 midnight, falling asleep within 3 minutes. She typically wakes once at night or not at all. If she awakens at night coma it is only to turn over, reposition. She is able to return to sleep within 10 minutes. These awakenings occurred in the hcc coders hours. She wakes for the day at 7:30 a.m.. Her weekend schedule is the same. She estimates getting between 6 and 8 hours of sleep at night. She takes naps in the afternoon or evening. A short nap is not refreshing. She is usually drowsy for 1 hour after waking. She feels better in the afternoon compared to other times of day. Habits: Tobacco: quit over 10 years ago. Caffeine: 2 mugs per day. Alcohol: 2 glasses of wine per day. No recreational substances. [facility] Past Medical History Medical History Anxiety Depression Gastro-esophageal reflux disease without esophagitis GERD (gastroesophageal reflux disease) Hypothyroidism, unspecified Obesity Osteoarthritis Other hyperlipidemia Overweight (BMI 25.0-29.9) Seizure Surgical History Surgical History History of left hip replacement December, Family History Family History Mother Hypertension Family history of cardiovascular disease Family history of Parkinson's disease Grandparent Cerebrovascular accident Sibling Carcinoma of colon, Onset Age: 47 Other Depression Family history of hypercholesterolemia Social History Social History Smoking status: Former smoker Additional smoking assessment comments: DENIES ANY FORM OF TOBACCO USE Alcohol intake: zenon
[2022-12-25 02:29] VITALS: BMI 27.9
== END 2022-12-10 12:03 | disposition home or self-care (01) ==
LOC: ANHCSM 08:27
PROVIDERS: PCP Emergency Medicine; Visit Provider Physician Assistant
DX: G47.33 Obstructive sleep apnea (adult) (pediatric) (principal); K21.9 Gastro-esophageal reflux disease without esophagitis; E03.9 Hypothyroidism, unspecified; E78.5 Hyperlipidemia, unspecified; Z87.891 Personal history of nicotine dependence
CPT/HCPCS: 95800

== ENCOUNTER 2023-01-11 09:25 | Outpatient (CLI) | payer MEDICARE, OTHER, SELFPAY ==
--- NOTE | 2023-01-31 22:16 | WPDSLEEPSTUD ---
Sleep Study Date of Study: 01/11/23 Ordering Provider: Moody Conti PA-C Interpreting Physician: Stephanie Cho MD Sleep Study Type: CPAP Titration Height: 1.63 m Weight: 76.204 kg Body Mass Index: 28.8 Neck Circumference (inches): 15.5 [place]: 12 Reason for Sleep Study 12/09/22 ? Home Sleep Test ? Moderate PREETI with overall AHI of 27.3, central AHI 5.1, and desaturation to 83%. Sleep History Emiliana Moeller is a 67-year-old female with history of prediabetes, hyperlipidemia, lumbar spinal stenosis, GERD, hypothyroidism, anxiety and depression who presented to the sleep lab for a CPAP titration after recent home sleep test revealed moderate sleep apnea. She has had snoring for more than 5 years.? The severity has increased.? She has acid reflux, currently being treated.? There is a family history of sleep disorders, her brother uses CPAP.? She never awakens from sleep feeling short of breath.? She rarely awakens at night with heartburn, belching or coughing.? She constantly snores loudly enough that others complain about it.? She occasionally has difficulty sleeping with a cold.? She does not gasp for breath at night.? She frequently has breathing problems at night reported to her by others.? She occasionally sweats excessively at night and occasionally notices her heart pounding or beating irregularly at night.? She occasionally falls asleep during the day, frequently falls asleep involuntarily but denies falling asleep while driving.? She does not have loss of muscle tone with strong emotion.? She does not have daytime difficulties due to excessive sleepiness.? She does not feel paralyzed on waking or falling asleep.? She rarely has vivid dreamlike scenes upon awakening or falling asleep.? She does not feel afraid to go to sleep.? She occasionally has nightmares.? She occasionally has dream recall.? She occasionally has racing thoughts.? She occasionally feels sad, depressed, or anxious.? She occasionally has muscular tension.? She occasionally notices parts of her body jerking.? She occasionally kicks at night.? She occasionally has crawling and aching feelings in her legs.? She frequently has leg pain at night.? She denies morning jaw pain and denies grinding her teeth during sleep.? She frequently is bothered by pain during the day.? She occasionally is awakened by pain at night.? She occasionally wakes up feeling stiff in the morning with sore achy muscles.? She frequently wakes up with pain in the neck and spine. Normal bedtime is 12 midnight, falling asleep within 3 minutes.? She typically wakes once at night or not at all.? If she awakens at night coma it is only to turn over, reposition.? She is able to return to sleep within 10 minutes.? These awakenings occurred in the corporate banking officer hours.? She wakes for the day at 7:30 a.m.. ? Her weekend schedule is the same. She estimates getting between 6 and 8 hours of sleep at night. ? She takes naps in the afternoon or evening.? A short nap is not refreshing.? She is usually drowsy for 1 hour after waking.? She feels better in the afternoon compared to other times of day. Habits: ? Tobacco: quit over 10 years ago.? Caffeine: 2 mugs per day.? Alcohol: 2 glasses of wine per day.? No recreational substances. [facility] Past Medical History Medical History Anxiety Depression Gastro-esophageal reflux disease without esophagitis GERD (gastroesophageal reflux disease) Hypothyroidism, unspecified Obesity Osteoarthritis Other hyperlipidemia Overweight (BMI 25.0-29.9) Seizure Surgical History Surgical History History of left hip replacement December, Family History Family History Mother Hypertension Family history of cardiovascular disease Family history of Parkinson's disease Grandparent Cerebrovascular accident Sibling Carcinom
[2023-02-01 10:59] VITALS: BMI 28.8
== END 2023-01-12 07:49 | disposition home or self-care (01) ==
LOC: ANHCSM 09:25
PROVIDERS: PCP Emergency Medicine; Visit Provider Physician Assistant
DX: G47.33 Obstructive sleep apnea (adult) (pediatric) (principal); G47.61 Periodic limb movement disorder
CPT/HCPCS: 95811

== ENCOUNTER 2023-03-09 07:57 | Outpatient (CLI) | payer MEDICARE, OTHER, SELFPAY ==
--- NOTE | 2023-03-09 08:46 | ECG_ITS ---
Measurements Intervals [place] Rate: 62 P: 44 [place]: 179 QRS: 27 QRSD: 82 T: 22 QT: 387 QTc: 394 Interpretive Statements SINUS RHYTHM LOW QRS VOLTAGE IN PRECORDIAL LEADS [QRS DEFLECTION < 1.0 mV IN CHEST LEADS] NO PREVIOUS ECG AVAILABLE FOR COMPARISON Electronically Signed On 03-09-2023 14:39:21 CDT by Collin Reina M.D.
[2023-03-09 09:30] LABS: Basophils Percent Auto 0.7 % (0.2-1.2); Eosinophils Percent Auto 0.2 % (0-4.4); Hematocrit 37.7 % (37.0-47.0); Hemoglobin 11.9 g/dL (12.0-15.0); Immature Granulocyte Absolute 0.02 K/mm3 (0.00-0.031); Immature Granulocyte Percent A 0.4 % (0-0.5); Lymphocytes Absolute Auto 1.76 K/mm3 (0.9-3.2); Lymphocytes Percent Auto 31.5 % (18.3-44.2); Mean Corpuscular HGB Conc 31.6 g/dl (32-36); Mean Corpuscular Hemoglobin 30.5 pg (26-34); Mean Corpuscular Volume 96.7 fl (80-100); Mean Platelet Volume 10.2 fl (7.4-10.4); Monocytes Absolute Auto 0.5 K/mm3 (0.1-0.6); Monocytes Percent Auto 8.8 % (2.6-8.5); Neutrophils Absolute Auto 3.3 K/mm3 (1.3-6.7); Neutrophils Percent Auto 58.4 % (45.5-73.1); Platelet Count Result 265 k/mm3 (150-375); Red Cell Distribution Width 13.2 % (11.5-14.5); White Blood Count 5.6 K/mm3 (4.5-10.0)
[2023-03-09 09:37] LABS: Albumin Level 4.2 g/dL (3.5-5.1); Anion Gap 5 mmol/L (8-16); Blood Urea Nitrogen 17 mg/dL (7-17); Calcium 8.9 mg/dL (8.4-10.2); Carbon Dioxide 29 mmol/L (22-30); Chloride 103 mmol/L (98-107); Estimated Glomerular Filt Rate > 60; Glucose 101 mg/dL (65-110); Hemoglobin A1C 5.4 % (<5.7); Sodium 137 mmol/L (137-145)
[2023-03-09 09:40] LABS: Urine Cotinine NEGATIVE
== END 2023-03-09 07:58 | disposition home or self-care (01) ==
LOC: ANHSURGERY 08:01
PROVIDERS: PCP Physician Assistant; Visit Provider Orthopaedic Surgery
DX: M16.11 Unilateral primary osteoarthritis, right hip (principal); Z01.818 Encounter for other preprocedural examination
CPT/HCPCS: 80048; 80307; 82040; 83036; 85025; 86850; 86900; 86901; 87081; 93005

== ENCOUNTER 2023-03-15 01:28 | Day surgery (SDC) | payer MEDICARE, OTHER, SELFPAY ==
--- NOTE | 2023-03-09 07:36 | PC.NURSE ---
PRE-OP INSTRUCTIONS, PLEASE READ CAREFULLY Report to the Outpatient Waiting Room, entrance under the green pavilion located off [facility], at time _0600_ on date _03/15/23_. Planned Procedure Time: _0730_. PACK A SMALL OVERNIGHT BAG AND LEAVE IN THE CAR ALONG WITH YOUR WALKER Time changes happen often and if your time is changed the preop area will call you the afternoon before. - You and your visitor will be asked to self-screen and do not enter if you have any COVID symptoms. - A mask is optional within the hospital at this time. -VISITING HOURS 8AM-8PM Patients may have clear liquids (water, carbonated beverages, clear teas, apple juice) until 3 hours prior to surgery (0430 AM) with a maximum of 20 ounces. - No food from midnight until time of surgery Take the following medications with a SIP of water the morning of surgery: _LEVOTHYROXINE, PAROXETINE_ DO NOT STOP ANY OF YOUR OTHER PRESCRIPTION MEDICATIONS PRIOR TO SURGERY ?EXCEPT THE FOLLOWING Medications to discontinue per DR. TAPIA - _DICLOFENAC, STATES last dose _03/08/23__ Medications to discontinue per ANESTHESIA - MULTIVITAMIN 3 DAYS PRIOR TO SURGERY, Date to take last dose 03/11/23_ Please no make-up, nail tunisian, hairspray, perfume, deodorant, or body powder the day of surgery. No jewelry (including any body piercings) or valuables the day of surgery, leave them at home. Please take a shower or bath the night before, or the morning of, surgery with an antibacterial soap. Wear comfortable, loose fitting clothing. - Jewelry must be removed prior to entering the operating room. Rings and piercings that are not removed may be cut off. - The hospital will not accept responsibility for valuables. - Please leave all valuables, including medications, at home the day of surgery. If you are going home after surgery, a licensed school bus driver must drive you home. - NO public transportation without another adult if you receive anesthesia. - We recommend that an adult stay with you for 24 hours following discharge. - We also recommend that you do not drive, make important decision, drink alcoholic beverages, or take any drugs that were not prescribed by your health care provider for at least 24 hours after your discharge time. Follow any additional instructions given to you from your surgeon. If you or anyone in your household have experienced Covid symptoms in the past week, please notify your surgeon or the nurse liaison at the phone number below for possible testing. Instructions given to _PATIENT & SPOUSE_and asked if any additional questions and then verbalized understanding. Patient advised to call surgeon office or pre surgery nurse liaison [phone] if any additional questions.
[2023-03-09 08:13] VITALS: BP 130/70; PULSE 64; RESP 18; TEMP 36.9; O2SAT 97; BMI 27.3
--- NOTE | 2023-03-12 12:56 | PM.IMHP ---
H&P: HPI History of Present Illness Date/Time: 03/12/23 12:56 Chief Complaint: DJD right hip Narrative: 67-year-old female patient of Dr. Villalobos who presents today for a right anterior total hip arthroplasty. Patient is been having progressively worsening symptoms for last 3 months. She has been on anti-inflammatories for almost a year. The pain in the right hip is becoming more debilitating to her. She has had to avoid activities due to the pain she is getting most the pain is in the groin particularly with weight-bearing. Patient had her left hip replaced in 2020 and is very happy with the results. At this point her right hip has moderately severe osteoarthritis and patient feels at this point she is ready to proceed with total hip arthroplasty rather continue nonsurgical treatment Review of Systems Review of Systems: All systems reviewed & are unremarkable except as noted in HPI and below PMFSH Past Medical History Medical History Anxiety Depression Gastro-esophageal reflux disease without esophagitis GERD (gastroesophageal reflux disease) Hypothyroidism, unspecified Obesity Osteoarthritis Other hyperlipidemia Overweight (BMI 25.0-29.9) Seizure Surgical History Surgical History History of left hip replacement December, Family History Family History Mother Hypertension Family history of cardiovascular disease Family history of Parkinson's disease Grandparent Cerebrovascular accident Sibling Carcinoma of colon, Onset Age: 47 Other Depression Family history of hypercholesterolemia Social History Social History (Updated 03/08/23 @ 15:11 by Armen Win MA) Smoking status: Former smoker Second hand tobacco smoke exposure: No Additional smoking assessment comments: PT UNABLE TO RECALL SMOKING HX - SHAGUFTA ALL FORMS OF TOBACCO USE Alcohol intake: current Drinks per week: 14 Substance use: never Substance use type: does not use Lack of Transportation: No Lack of Food: Never True Current Housing: I Have Housing Concerned About Future Housing: No Difficulty Paying Gas/Electric Bills: No Difficulty Paying for Meds: No Currently Unemployed: No Education: Associate Degree Difficulty w/ Childcare or Family Care: No Living arrangements: with family Additional living arrangements comments: significant other Occupation/Education: occupation Gender identity (if verbalized by the patient): Female Spiritual care concerns: No Agree to blood products: Yes Meds Home Medications and Allergies Home Medications Medication Instructions Recorded Confirmed Type cholecalciferol (vitamin D3) 50 50 mcg PO DAILY 12/11/21 03/09/23 History mcg (2,000 unit) capsule levothyroxine 50 mcg tablet See Rx Instructions .Route 04/24/22 03/09/23 Rx .COMPLEX #90 tabs diclofenac sodium 75 mg 75 mg PO QAM 10/29/22 03/09/23 History tablet,delayed release pen needle, diabetic 32 gauge x #100 ea 12/16/22 03/08/23 Rx /32 (BD Ultra-Fine Hazel Pen Needle) paroxetine HCl 20 mg tablet 20 mg PO DAILY #90 tabs 12/18/22 03/09/23 Rx CPAP See Rx Instructions .Route 02/01/23 03/09/23 Rx .COMPLEX #1 unit pantoprazole 40 mg tablet,delayed See Rx Instructions .Route 02/25/23 03/09/23 Rx release .COMPLEX #90 tabs multivitamin 1 tablet PO DAILY 03/09/23 03/09/23 History semaglutide 0.25 mg or 0.5 mg (2 0.25 mg subcut WEEKLY 03/09/23 03/09/23 History mg/3 mL) subcutaneous pen injector (infibond) atorvastatin 40 mg tablet 40 mg PO DAILY #90 tabs 03/12/23 Rx Allergies Allergy/AdvReac Type Severity Reaction Status Date / Time No Known Allergies Allergy Verified 03/09/23 08:14 Exam Narrative: 67-year-old female alert pleasant. She is 5 ft 4 and 163 lb her BMI is 28. Her right hi
[2023-03-15] VITALS (18 sets, daily range): BP systolic 110–136; BP diastolic 62–79; PULSE 74–97; RESP 8–16; TEMP 36–37.4; O2SAT 92–99
--- NOTE | ~2023-03-15 | XR_ITS ---
EXAMINATION: XR hip RT 1V w AP pelvis, XR surgery orthopedic DATE: 03/15/2023 11:29 (accession [id number]), 03/15/2023 11:16 (accession [id number]) INDICATION: Right total hip arthroplasty postoperatively. Single AP view intraoperatively. 58 seconds of fluoroscopy. TECHNIQUE: 2 views right hand FINDINGS: There is a right total hip arthroplasty in expected position. Subcutaneous gas with soft t issue swelling are consistent with recent surgery. IMPRESSION: 1. Recent right total hip arthroplasty. Reviewed, dictated and finalized at location B. IMPRESSION: 1. Recent right total hip arthroplasty.
[2023-03-15] MEDS: LACTATED RINGERS 1,000 ML 30 ML IV CONT ×2 (06:30→11:30)
[2023-03-15] MEDS: ACETAMINOPHEN 500 MG TABLET 1000 MG PO ×4 (06:53→23:38)
[2023-03-15] MEDS: VANCOMYCIN 1,000 MG/NS 250 ML BAG 250 MG IVPB (06:54)
[2023-03-15] MEDS: TRANEXAMIC ACID 1,000MG/ISO100 1,000 MG/100 ML BAG 200 MG IVPB (07:03)
--- NOTE | 2023-03-15 07:12 | WPDANESEPPF ---
Anes - Initial Pre Proc Eval Procedure: Operation Date: 03/15/23 07:30 Proposed Procedures p Right Total Hip Arthroplasty Anterior Approach - Aubrey Connolly MD Date/Time: 03/15/23 07:12 Surgeon: Aubrey Connolly MD Pre Op Diagnosis: right hip oa Patient Data Age: 67 Gender: F Height: 1.64 m Weight: 73.3 kg Last Vital Signs Temp 36.0 C L 03/15/23 06:25 Pulse 74 03/15/23 06:25 Resp 16 03/15/23 06:25 BP 127/79 03/15/23 06:25 Pulse Ox 97 03/15/23 06:25 O2 Del Method Room Air 03/15/23 06:25 Allergies Allergy/AdvReac Type Severity Reaction Status Date / Time No Known Allergies Allergy Verified 03/15/23 06:40 Home Medications Medication Instructions Recorded Confirmed Type cholecalciferol (vitamin D3) 50 50 mcg PO DAILY 12/11/21 03/15/23 History mcg (2,000 unit) capsule levothyroxine 50 mcg tablet See Rx Instructions .Route 04/24/22 03/15/23 Rx .COMPLEX #90 tabs diclofenac sodium 75 mg 75 mg PO QAM 10/29/22 03/15/23 History tablet,delayed release pen needle, diabetic 32 gauge x #100 ea 12/16/22 03/08/23 Rx (BD Ultra-Fine Hazel Pen Needle) paroxetine HCl 20 mg tablet 20 mg PO DAILY #90 tabs 12/18/22 03/15/23 Rx CPAP See Rx Instructions .Route 02/01/23 03/09/23 Rx .COMPLEX #1 unit pantoprazole 40 mg tablet,delayed See Rx Instructions .Route 02/25/23 03/15/23 Rx release .COMPLEX #90 tabs multivitamin 1 tablet PO DAILY 03/09/23 03/15/23 History semaglutide 0.25 mg or 0.5 mg (2 0.25 mg subcut WEEKLY 03/09/23 03/15/23 History mg/3 mL) subcutaneous pen injector (Ozempic) atorvastatin 40 mg tablet 40 mg PO DAILY #90 tabs 03/12/23 03/15/23 Rx Patient hx anesthesia problems: none Family hx anesthesia problems: other (mother slow to awaken) Results Review: All pre-operative results and documents have been reviewed as part of the pre-operative evaluation. [facility] Past Medical History Medical History Anxiety Depression Gastro-esophageal reflux disease without esophagitis GERD (gastroesophageal reflux disease) Hypothyroidism, unspecified Obesity Osteoarthritis Other hyperlipidemia Overweight (BMI 25.0-29.9) Seizure Surgical History Surgical History History of left hip replacement December, Family History Family History Mother Hypertension Family history of cardiovascular disease Family history of Parkinson's disease Grandparent Cerebrovascular accident Sibling Carcinoma of colon, Onset Age: 47 Other Depression Family history of hypercholesterolemia Social History Social History Smoking status: Former smoker Second hand tobacco smoke exposure: No Additional smoking assessment comments: PT UNABLE TO RECALL SMOKING HX - SHAGUFTA ALL FORMS OF TOBACCO USE Alcohol intake: current Drinks per week: 14 Substance use: never Substance use type: does not use Lack of Transportation: No Lack of Food: Never True Current Housing: I Have Housing Concerned About Future Housing: No Difficulty Paying Gas/Electric Bills: No Difficulty Paying for Meds: No Currently Unemployed: No Education: Associate Degree Difficulty w/ Childcare or Family Care: No Living arrangements: with family Additional living arrangements comments: significant other Occupation/Education: occupation Gender identity (if verbalized by the patient): Female Spiritual care concerns: No Agree to blood products: Yes Anes - Eval Final PreProcedure Day of Procedure 03/15/23 07:12 Patient weight: overweight Heart: regular rate and rhythm Lungs: clear to auscultation Airway: Mallampati scale class II Neurological: alert and oriented Last oral intake: >/= 8 hours ASA classification: III Emergent: no
--- NOTE | 2023-03-15 07:14 | WPDHPUPDATE1 ---
History and Physical Update Update Date/Time: 03/15/23 07:14 History and Physical has been reviewed, including an updated exam of the patient. There are NO changes in the patient's condition. Risks, benefits, and alternatives have been discussed and questions answered. Patient agrees to proceed with procedure.
[2023-03-15] MEDS: ceFAZolin 2 GM/D5W 50 ML 2 GM/50 ML BAG IVPB (07:47)
[2023-03-15] MEDS: ceFAZolin SODIUM 1 GM VIAL 3 GM (08:40)
[2023-03-15] MEDS: TRANEXAMIC ACID 1,000 MG/10 ML AMPUL 1000 MG IV PUSH (10:50)
[2023-03-15] MEDS: ceFAZolin SODIUM 1 GM VIAL 2 GM IV PUSH (10:58)
--- NOTE | 2023-03-15 11:24 | W.PM.PROC2 ---
Procedure Note - Detailed Date of Procedure 03/15/23 Pre-op Diagnosis right hip oa Post-op Diagnosis Same Procedure Performed Direct anterior approach right total hip arthroplasty Surgeon Aubrey Connolly MD Lining Finisher morales Anesthesia General Description of Procedure Patient was brought to the operating room and general anesthesia was administered. She received 2 g of Ancef weight based vancomycin 1 g of tranexamic acid preoperatively. The feet were padded in boots applied [facility] and the right hip prepped draped usual fashion. A 10 cm longitudinal incision was made starting 3 cm lateral to the ASIS. Dissection was carried down to the fascia over the tensor fascia cristiano which was longitudinally incised and elevated off the TFL muscle. Interval between TFL and rectus femoris developed. Crossing branches of ascending lateral femoral circumflex vessels were isolated ligated with suture divided. A retractor was placed anteromedial to the capsule the hip abducted internally rotated the gluteus minimus elevated off the lateral capsule. Inverted T capsulotomy was performed. Femoral neck osteotomy made according to preoperative templating. The femoral head measured 51 mm in diameter. There was prominent peripheral osteophytes around the femoral head and eburnation superiorly. Acetabulum was exposed and posterior labrum excised minimal residual anterior labrum osteophytes smoothed anteriorly superiorly. Posteriorly under the posterior labrum there was cystic resorption of the posterior superior rim of the acetabulum there the resorption was diffuse and there were no deep focal CIS to bone graft. There was a very large medial osteophyte almost obliterating the fovea and a large bridging inferior acetabular osteophyte. We resected the central bridging portion of the inferior osteophyte to assist with medialization. Under fluoroscopic guidance with a 44 Reamer the reaming was medialized the medial wall. We reamed up to 51 mm which gave peripheral contact with the rim except for the rim posterior superiorly where there was cystic resorption the bone quality adjacent to this area of cystic resorption was excellent and the 51 trial fit nicely with a snug fit. We lightly reamed to a 52. We impacted the 52 pinnacle cup at 40? of abduction and proper anteversion and this gave us an excellent press fit it was hard to seat fully but full seating was accomplished. A single screw was placed in the ilium also which excellent purchase. The leg was externally rotated with table hook in place and the leg extended exposing the proximal femur. We broached up to a size 4 and trialed with a 1.5 head which had excellent stability. I did not feel it was necessary to release interval between conjoined tendon and piriformis so other than exposing the lateral base of the neck these structures were left intact. Intraoperative x-ray was obtained which showed appropriate position of the implants and leg lengths were measured and appeared we were about a mm to 2 mm longer on the right side. The leg was externally rotated extended and we calcar planed the neck to the level of the broach and checked for rotational stability and there was a little bit of play. We impacted the size 5 which proved to be a tight fit and we countersunk this 2 mm below the previous broach size. We trialed with a 1.5. This was the high offset neck. Appropriate stability was noted and we had equal leg lengths on radiographs. We finished up the calcar planing using the small calcar planer and reciprocating saw and after removal of the broach we impacted the size 5 high offset Actis stem which seated fully with a tight fit. We trialed once more and the 1.5 was stable and appropriate. The 1.5 ceramic ball was impacted on the clean and dried trunnion after thorough irrigation of the wound. Hips reduced stability reconfirmed. Additional 2 g of Ancef and 1 g of TXA was given. The
--- NOTE | 2023-03-15 11:38 | PM.OP ---
Procedure Note - Brief Procedure Note - Brief Date of procedure: 03/15/23 right hip oa Procedure performed: Right anterior total hip arthroplasty Surgeon: ILEANA Lou Findings: 67-year-old female year old female who underwent right anterior total hip arthroplasty on 03/15. I was involved in the procedure including positioning patient on the OR table in 1st assisting through the time surgery. Total time spent was 4 hours
[2023-03-15] MEDS: fentaNYL CITRATE INJ (*CRX) 100 MCG/2 ML VIAL 25 MCG IV PUSH ×5 (12:10→13:50)
[2023-03-15] MEDS: ONDANSETRON INJ 4 MG/2 ML VIAL IV PUSH ×2 (12:46→14:40)
[2023-03-15] MEDS: SODIUM CHLORIDE 0.9% IV 1,000 ML 125 ML IV CONT (14:39)
[2023-03-15] MEDS: KETOROLAC 15 MG/ML VIAL (*BKC) IV PUSH ×2 (14:40→20:25)
[2023-03-15] MEDS: ceFAZolin 1 GM/NS 50 ML 1 GM/50 ML BAG IVPB ×2 (14:40→23:38)
[2023-03-15] MEDS: oxyCODONE HCL (*CRX) 5 MG TAB IR PO ×3 (14:50→22:15)
[2023-03-15 17:01] LABS: Glucose Point of Care 137 mg/dl (65-105)
[2023-03-15] MEDS: VANCOMYCIN 1,000 MG/NS 250 ML 1,000 MG/250 ML BAG 250 MG IVPB (17:37)
[2023-03-15] MEDS: SENNA/DOCUSATE SODIUM TABLET 2 TAB PO (17:37)
[2023-03-15] MEDS: FAMOTIDINE 20 MG TABLET PO (20:28)
[2023-03-16] MEDS: oxyCODONE HCL (*CRX) 5 MG TAB IR PO ×3 (01:58→10:24)
[2023-03-16 03:45] VITALS: BP 121/64; PULSE 86; RESP 16; TEMP 36.4; O2SAT 98
[2023-03-16] MEDS: ACETAMINOPHEN 500 MG TABLET 1000 MG PO (06:23)
[2023-03-16] MEDS: VANCOMYCIN 1,000 MG/NS 250 ML 1,000 MG/250 ML BAG 250 MG IVPB (06:23)
[2023-03-16] MEDS: LEVOTHYROXINE SODIUM 50 MCG TABLET BY MOUTH (06:26)
--- NOTE | 2023-03-16 06:26 | PM.PNORT ---
Subjective Subjective Date/Time Seen: 03/16/23 06:26 Interval history: Postop day 1 patient is alert. She has been afebrile vital signs are stable. Drain is going to be removed this morning and dressing changed. Neurovascularly she is intact. Pain is well controlled. She was up multiple times yesterday with physical therapy walking and is comfortable. We will plan have the patient work with physical therapy this morning and in discharge her home later this morning if she continues to be doing. The time of dictation morning labs have not been completed yet Objective Data Vital Signs Vital Signs: Vital Signs - 24 hr 03/15/23 11:30 03/15/23 11:45 03/15/23 12:00 Temperature 37.4 C Pulse Rate 81 86 94 Respiratory Rate 10 L 16 12 Blood Pressure 119/62 122/63 125/74 Pulse Oximetry 99 99 92 Oxygen Delivery Simple Face Mask Simple Face Mask Room Air Oxygen Flow Rate 8 8 03/15/23 12:15 03/15/23 12:30 03/15/23 12:45 Temperature Pulse Rate 95 97 89 Respiratory Rate 14 12 10 L Blood Pressure 117/70 117/70 121/71 Pulse Oximetry 94 97 97 Oxygen Delivery Nasal Cannula Nasal Cannula Nasal Cannula Oxygen Flow Rate 3 3 3 03/15/23 13:00 03/15/23 13:16 03/15/23 13:31 Temperature Pulse Rate 88 89 92 Respiratory Rate 8 L 8 L 9 L Blood Pressure 119/72 120/73 118/70 Pulse Oximetry 96 97 96 Oxygen Delivery Nasal Cannula Nasal Cannula Nasal Cannula Oxygen Flow Rate 3 3 3 03/15/23 13:45 03/15/23 14:20 03/15/23 14:35 Temperature 36.3 C L 36.5 C Pulse Rate 94 89 91 Respiratory Rate 11 L 16 12 Blood Pressure 123/70 136/72 128/76 Pulse Oximetry 95 96 96 Oxygen Delivery Nasal Cannula Oxygen Flow Rate 3 03/15/23 15:05 03/15/23 15:31 03/15/23 16:05 Temperature 36.3 C L 36.8 C Pulse Rate 91 95 Respiratory Rate 15 16 Blood Pressure 135/70 122/68 Pulse Oximetry 95 95 Oxygen Delivery Room Air Oxygen Flow Rate 03/15/23 19:45 03/15/23 23:45 03/15/23 20:00 Temperature 36.3 C L 36.3 C L Pulse Rate 95 90 90 Respiratory Rate 12 14 14 Blood Pressure 116/64 110/67 Pulse Oximetry 95 92 92 Oxygen Delivery Room Air Oxygen Flow Rate Intake/Output Intake/Output: Intake & Output 03/13/23 03/14/23 03/15/23 03/16/23 23:59 23:59 23:59 23:59 Intake Total 1000 50 Output Total 0 Balance 1000 50 Meds/Results Medications: Active Medications Generic Name Dose Route Start Last Admin Trade Name Freq PRN Reason Stop Dose Admin Acetaminophen 1,000 mg 03/15/23 14:00 03/16/23 06:23 Acetaminophen 500 Mg Tablet PO 1,000 mg Q6HR EDISON Administration Apixaban 2.5 mg 03/16/23 09:00 Apixaban 2.5 Mg Tablet PO 04/02/23 09:01 Q12HR EDISON Atorvastatin Calcium 40 mg 03/16/23 09:00 Atorvastatin 40 Mg Tablet PO DAILY EDISON Celecoxib 200 mg 03/16/23 09:00 Celecoxib 200 Mg Capsule PO DAILY EDISON Cephalexin HCl 500 mg 03/16/23 12:00 Cephalexin 500 Mg Capsule PO Q6HR EDISON Famotidine 20 mg 03/15/23 21:00 03/15/23 20:28 Famotidine 20 Mg Tablet PO 20 mg Q12HR EDISON Administration Cefazolin Sodium 1 gm in 50 mls @ 100 mls/hr 03/15/23 16:00 03/16/23 00:10 Ancef 1 Gm/Ns 50 Ml IVPB 03/16/23 08:29 Infused Q8H EDISON Infusion Vancomycin HCl 1,000 mg in 250 mls @ 250 mls/hr 03/15/23 19:00 03/16/23 06:23 Vancomycin 1,000 Mg/Ns 250 Ml IVPB 03/16/23 07:59 250 mls/hr Q12H EDISON Administration Levothyroxine Sodium 50 mcg 03/16/23 06:30 03/16/23 06:26 Levothyroxine Sodium 50 Mcg Tablet BY MOUTH 50 mcg DAILY@0630 EDISON Administration Morphine Sulfate 2 mg 03/15/23 14:00 Morphine Sulfate (*Crx) 2 Mg/Ml Inj IV PUSH Q3H PRN Pain Rated 7-10 Naloxone HCl 0.1 mg 03/15/23 14:00 Naloxone Hcl 0.4 Mg/Ml Vial IV PUSH Q2M PRN Opiate Reversal Ondansetron HCl 4 mg 03/15/23 14:00 03/15/23 14:40 Ondansetron Inj 4 Mg/2 Ml Vial IV PUSH 4 mg Q4H PRN Administration Nausea And Vomiting Oxyco
[2023-03-16 06:29] LABS: Basophils Percent Auto 0.1 % (0.2-1.2); Hematocrit 29.8 % (37.0-47.0); Hemoglobin 9.3 g/dL (12.0-15.0); Immature Granulocyte Absolute 0.07 K/mm3 (0.00-0.031); Immature Granulocyte Percent A 0.6 % (0-0.5); Lymphocytes Absolute Auto 0.92 K/mm3 (0.9-3.2); Lymphocytes Percent Auto 7.6 % (18.3-44.2); Mean Corpuscular HGB Conc 31.2 g/dl (32-36); Mean Corpuscular Hemoglobin 30.2 pg (26-34); Mean Corpuscular Volume 96.8 fl (80-100); Mean Platelet Volume 10.4 fl (7.4-10.4); Monocytes Absolute Auto 0.9 K/mm3 (0.1-0.6); Monocytes Percent Auto 7.2 % (2.6-8.5); Neutrophils Absolute Auto 10.2 K/mm3 (1.3-6.7); Neutrophils Percent Auto 84.5 % (45.5-73.1); Platelet Count Result 232 k/mm3 (150-375); Red Blood Count 3.08 M/mm3 (4.2-5.4); Red Cell Distribution Width 13.2 % (11.5-14.5); White Blood Count 12.1 K/mm3 (4.5-10.0)
--- NOTE | 2023-03-16 06:31 | PM.DS ---
DS: Admitting Diagnosis Discharge Date 03/16 Admitting Diagnosis Right hip DJD DS: Discharge Diagnosis Discharge Diagnosis (1) Hip arthritis: Code(s): M16.10 - Unilateral primary osteoarthritis, unspecified hip Status: Acute DS: Summary Hospital Course Hospital Course: 67-year-old female who underwent right anterior total hip arthroplasty on 03/15. Underwent the procedure without complications. Postoperatively she has been afebrile vital signs are stable. Neurovascularly she is intact. She is weight-bearing as tolerated. She is on Eliquis for DVT prophylaxis. She was up walking the day of surgery and is comfortable. Pain is controlled with scheduled Tylenol as well as oxycodone 5 mg. She to will also be on 10 day course of Celebrex for heterotopic bone formation prophylaxis. She will go home on 03/16 years ago home with a week Keflex as well as Senokot and MiraLax. At the time of dictation morning labs and not been completed yet. Patient's dressing has been dry and intact. Drain is out. Patient was advised any questions or concerns she is to call the office otherwise we will see her at her appointments. Time Spent with Patient Time attestation: Total time spent providing and/or coordinating discharge services: DS: Data Data Completed and Pending Labs on day of discharge: Labs from last 24 hours 03/16/23 03/15/23 06:00 12:08 WBC Pending RBC Pending Hgb Pending Hct Pending MCV Pending MCH Pending MCHC Pending RDW Pending Plt Count Pending MPV Pending Immature Gran % (Auto) Pending Neut % (Auto) Pending Lymph % (Auto) Pending [place] % (Auto) Pending Eos % (Auto) Pending Baso % (Auto) Pending Lymph # (Auto) Pending [place] # (Auto) Pending Eos # (Auto) Pending Baso # (Auto) Pending Abs Immat Gran (auto) Pending Absolute Neuts (auto) Pending Absolute Nucleated RBC Pending Nucleated RBC % Pending Sodium Pending Potassium Pending Chloride Pending Carbon Dioxide Pending Anion Gap Pending BUN Pending Creatinine Pending Estim Creat Clear Calc Pending Estimated GFR Pending Glucose Pending POC Capillary Glucose 137 H Calcium Pending Discharge Plan Discharge Patient Disposition: Home, Self-Care Discharge Instructions: AUBREY CONNOLLY M.D [facility], [place] [id number] [place] [address] POST-OPERATIVE DISCHARGE INSTRUCTIONS ANTERIOR TOTAL HIP ARTHROPLASTY 1. Move toes/feet up and down every hour while awake. 2. Be up walking every hour while awake. 3. Use cane in hand opposite of side of hip surgery or walker as comfort allows. Avoid sitting in a chair unless eating, receiving visitors or using the toilet. 4. When resting, lie on back with leg elevated above heart to minimize swelling. Significant swelling could indicate a blood clot and if this occurs, call the office (or go to the ER) to have a venous ultrasound performed. 5. Wound Care: Keep dry sponge on wound for 2 weeks. Use minimal tape. 6. Follow weight bearing status as instructed. 7. May shower with dressing off. Stand Alone Forms: General Discharge Instructions Follow-up/Referrals: Aubrey Connolly MD [Physician] - Keep Reg. Scheduled Appt. Discharge Medications: New acetaminophen 500 mg Tablet 1,000 mg PO Q6HR Qty: 90 0RF Eliquis 2.5 mg Tablet 2.5 mg PO Q12HR Qty: 70 0RF celecoxib [Celebrex] 200 mg Capsule 200 mg PO DAILY Qty: 10 0RF polyethylene glycol 3350 [Miralax] 17 gram Powder In Packet 17 g PO QAM Qty: 30 0RF sennosides-docusate sodium [Senokot-S] 8.6-50 mg Tablet 2 tab PO BID Qty: 60 0RF cephalexin 500 mg Capsule 500 mg PO Q6HR Qty: 28 0RF oxycodone 5 mg Tablet 5 mg PO Q4H Qty: 40 0RF Continued multivitamin Tablet 1 tablet PO DAILY Ozempic 0.25 mg or 0.5 mg (2 mg/3 mL) pen injector 0.25 mg subcut WE
[2023-03-16 06:38] LABS: Anion Gap 6 mmol/L (8-16); Blood Urea Nitrogen 13 mg/dL (7-17); Calcium 7.7 mg/dL (8.4-10.2); Carbon Dioxide 27 mmol/L (22-30); Chloride 105 mmol/L (98-107); Estimated CRCL calculation 61 ml/min; Estimated Glomerular Filt Rate > 60; Glucose 127 mg/dL (65-110); Potassium 4.1 mmol/L (3.4-5.0); Sodium 138 mmol/L (137-145)
[2023-03-16 08:00] VITALS: O2SAT 98
--- NOTE | 2023-03-16 08:05 | PCOTNOTE ---
The patient treatment was not able to be completed @8 AM patient just received breakfast and wanted to eat first will come back in a few. Will plan to continue treatment per plan of care.
[2023-03-16] MEDS: ceFAZolin 1 GM/NS 50 ML 1 GM/50 ML BAG IVPB (08:16)
[2023-03-16] MEDS: CELECOXIB 200 MG CAPSULE PO (08:21)
[2023-03-16] MEDS: CHOLECALCIFEROL 1,000 UNITS TABLET 2000 UNITS PO (08:21)
[2023-03-16] MEDS: ATORVASTATIN 40 MG TABLET PO (08:21)
[2023-03-16] MEDS: SENNA/DOCUSATE SODIUM TABLET 2 TAB PO (08:21)
[2023-03-16] MEDS: FAMOTIDINE 20 MG TABLET PO (08:21)
[2023-03-16] MEDS: polyethylene glycoL 3350 17 GM POWD.PACK PO (08:22)
[2023-03-16] MEDS: PARoxetine 20 MG TABLET PO (08:22)
[2023-03-16 10:08] VITALS: BP 125/72; PULSE 80; RESP 18; TEMP 36.2; O2SAT 99
[2023-03-16] MEDS: APIXABAN 2.5 MG TABLET PO (10:22)
[2023-03-16 14:23] LABS: Glucose Point of Care 106 mg/dl (65-105)
== END 2023-03-16 11:10 | disposition home or self-care (01) ==
LOC: ANHSURGERY 06:07 → ANH3MEDSUR 14:11
PROVIDERS: Physician Assistant Surgical; PCP Physician Assistant; Visit Provider Orthopaedic Surgery
PROC: (CPT 27130; principal; 2023-03-15 07:30)
DX: M16.11 Unilateral primary osteoarthritis, right hip (principal); E78.49 Other hyperlipidemia; K21.9 Gastro-esophageal reflux disease without esophagitis; F41.9 Anxiety disorder, unspecified; F32.A Depression, unspecified; E03.9 Hypothyroidism, unspecified; Z79.899 Other long term (current) drug therapy
CPT/HCPCS: 27130; 36415; 73501; 80048; 82948; 85025; 97110; 97116; 97161; 97165; 97530; 97535; 99199; A9270; C1776; J0171; J0690; J1100; J1170; J1885; J2250; J2270; J2405; J2704; J2795; J3010; J3370; J7030; J7120

== ENCOUNTER → 2023-06-10 11:42 | Outpatient (CLI) | payer MEDICARE, OTHER, SELFPAY ==
--- NOTE | ~2023-06-10 | XR_ITS ---
XR_CERV2-3V_CR DATE: 06/10/2023 11:55 INDICATION: Left and posterior neck pain for 3 months. No injury. TECHNIQUE: AP, open-mouth and lateral views COMPARISON: None FINDINGS: There is minimal anterolisthesis at C4-5 due to prominent degenerative change at the apophy seal joints which is noted throughout the cervical spine. Is mild loss of interspace height at C5-6 and C6-7 with prominent anterior spurring. C1 and C2 are normally aligned and the odontoid process is intact. No fracture or dislocation or lock ed facet or prevertebral soft tissue swelling. IMPRESSION: Prominent degenerative change of the apophyseal joints of the cervical spine with associa malika minimal C4-5 anterolisthesis Mild to moderate degenerative disc disease at C5-6 and C6-7 Reviewed, dictated and finalized at Location A. Reviewed, dictated and finalized at location L. PATHOLOGIST IMPRESSION: Prominent degenerative change of the apophyseal joints of the cervi hawa spine with associated minimal C4-5 anterolisthesis Mild to moderate degenerative disc disease at C5-6 and C6-7
== END ==
PROVIDERS: PCP Physician Assistant; Visit Provider Physician Assistant
DX: M50.321 Other cervical disc degeneration at C4-C5 level (principal)
CPT/HCPCS: 72040

== ENCOUNTER 2023-12-21 13:27 | Outpatient (CLI) | payer MEDICARE, OTHER, SELFPAY ==
--- NOTE | ~2023-12-21 | MM_ITS ---
EXAMINATION: MM screening anuja BI w addis HISTORY: Screening TECHNIQUE: Craniocaudal and mediolateral oblique 3-D tomosynthesis images were obtained and synthetic 2-D images were generated. CAD analysis was submitted and interpreted. COMPARISON: Comparison to multiple prior studies sequentially, with oldest reviewed study dated 04/25. BREAST PARENCHYMAL COMPOSITION: Not dense: There are scattered areas of fibroglandular density. FINDINGS: There is no evidence of suspicious mass, calcification, or architectural distortion to sugg est malignancy in either breast. There has been no suspicious interval change. IMPRESSION: 1. No mammographic evidence of malignancy. 2. Recommend routine screening mammography in one year. BI-RADS Category 1: Negative Reviewed, dictated and finalized at location B.
== END 2023-12-21 13:28 ==
LOC: MICIMG 13:28
PROVIDERS: PCP Family Medicine; Visit Provider Family Medicine
DX: Z12.31 Encounter for screening mammogram for malignant neoplasm of breast (principal)
CPT/HCPCS: 77063; 77067

== ENCOUNTER 2024-08-08 10:20 | Outpatient (CLI) | payer MEDICARE, OTHER, SELFPAY ==
--- NOTE | ~2024-08-08 | MR_ITS ---
EXAMINATION: MR cervical spine wo con DATE: 08/08/2024 10:48 INDICATION: Neck pain. TECHNIQUE: Magnetic resonance imaging (MRI) of the cervical spine was performed without intravenous c ontrast. COMPARISON: Cervical spine radiographs 06/10/2023 FINDINGS: Alignment is normal. Vertebral body heights are normal. There is mildly decreased disc heig ht at C5-C6. The spinal cord signal intensity is normal. The following disc levels are specifically d iscussed: C2-C3: There is a central protrusion. There is no uncovertebral joint osteoarthritis. There is modera te right and severe left facet joint osteoarthritis. There is mild left neural foraminal stenosis. Th ere is no central canal stenosis. C3-C4: The disc does not extend beyond the endplate margin. There is mild bilateral uncovertebral chey nt osteoarthritis. There is severe bilateral facet joint osteoarthritis. There is mild right and mode rate left neural foraminal stenosis. There is no central canal stenosis. C4-C5: The disc does not extend beyond the endplate margin. There is mild bilateral uncovertebral chey nt osteoarthritis. There is mild right facet joint osteoarthritis. There is ankylosis of left facet j oint with severe hypertrophy. There is mild bilateral neural foraminal stenosis. There is no central canal stenosis. C5-C6: The disc does not extend beyond the endplate margin. There is severe right and moderate left u ncovertebral joint osteoarthritis. There is moderate right and severe left facet joint osteoarthritis . There is moderate right and mild left neural foraminal stenosis. There is no central canal stenosis . C6-C7: There is a right foraminal protrusion. There is mild bilateral uncovertebral joint osteoarthri tis. There is severe bilateral facet joint osteoarthritis. There is mild bilateral neural foraminal s tenosis. There is mild central canal stenosis. C7-T1: The disc does not extend beyond the endplate margin. There is no uncovertebral joint osteoarth ritis. There is severe bilateral facet joint osteoarthritis. There is mild bilateral neural foraminal stenosis. There is no central canal stenosis. IMPRESSION: 1. Moderate cervical spondylosis. Reviewed, dictated and finalized at location A. NING DEVELOPER
== END 2024-08-08 10:21 | disposition home or self-care (01) ==
LOC: MICIMG 10:21
PROVIDERS: PCP Family Medicine; Visit Provider Student in an Organized Health Care Education/Training Program
DX: E78.2 Mixed hyperlipidemia (principal); M47.892 Other spondylosis, cervical region
CPT/HCPCS: 72141

== ENCOUNTER 2024-09-13 13:24 | Outpatient (CLI) | payer MEDICARE, OTHER, SELFPAY ==
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
== END 2024-09-13 13:25 | disposition home or self-care (01) ==
LOC: MICIMG 13:27
PROVIDERS: PCP Family Medicine; Visit Provider Student in an Organized Health Care Education/Training Program
DX: R07.89 Other chest pain (principal)
CPT/HCPCS: 71120

== ENCOUNTER 2024-10-10 21:44 | Emergency (ER) | payer MEDICARE, OTHER, SELFPAY ==
--- NOTE | ~2024-10-10 | CT_ITS ---
History: Fall PROCEDURE: CT cervical spine without intravenous contrast. COMPARISON: None Reference is made to an MRI examination of the cervical spine dated 08/08/2024 TECHNIQUE: Multiple contiguous axial images of the cervical spine were performed without the administration of i ntravenous contrast. Limited evaluation of C1 and the tip of C2 secondary to streak metallic artifact from the patient's e arrings which were not removed for the examination. DLP: 280 mGy-cm FINDINGS: Preservation of the normal curvature of the cervical spine is identified. Significant multilevel uncovertebral joint osteoarthritis, left greater than right, some with ankylos is. No acute fractures are present. Apical scarring is present. No soft tissue abnormality is noted. The airway is patent. Impression: Significant degenerative disease, without acute fracture. Limited evaluation of C1 and the tip of C2 secondary to streak metallic artifact from the patient's e arrings which were not removed for the examination. No acute displaced fracture is identified in this area. Reviewed, dictated and finalized at location A. Impression: Significant degenerative disease, without acute fracture. Limited evaluation of C1 and the tip of C2 secondary to streak metallic artifac t from the patient's earrings which were not removed for the examination. No ac seneca displaced fracture is identified in this area.
--- NOTE | ~2024-10-10 | CT_ITS ---
CLINICAL INDICATION: Fall COMPARISON: None. Reference is made to CT examination of the abdomen and pelvis dated 03/26/2005 and TECHNIQUE: Multiple contiguous axial images of the chest, abdomen, pelvis, thoracic and lumbar spines were performed without the administration of intravenous contrast The dose-length product (DLP) was 1203.57 mGy-cm. Automated exposure control and iterative reconstruction technique were employed. FINDINGS/OBSERVATIONS: LUNG:The lungs are clear. 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 No pathologically enlarged lymph nodes are identified within the mediastinum. Moderate hiatal hernia is noted. HEART:The heart is of normal size, without pericardial effusion. SOFT TISSUES OF THE CHEST: Unremarkable. BONES OF THE CHEST: A nondisplaced fracture is suspected within the upper sternum (coronal series, im age 31) for which clinical correlation is needed regarding point tenderness in this area as well as t he mechanism of trauma. No retrosternal hematoma is identified. Liver: The liver demonstrates homogeneous attenuation and is not enlarged measuring 18 cm in longitudinal di mension. Gallbladder and biliary system: The gallbladder is minimally distended, and otherwise unremarkable. Pancreas: Limited evaluation of the pancreas secondary to the lack of intravenous contrast. Spleen: The spleen demonstrates homogeneous attenuation and is not enlarged measuring cm in longitudinal dime nsion. Kidneys: The bilateral kidneys are unremarkable, without hydronephrosis or renal calculi. Adrenal glands: Unremarkable. Gastrointestinal tract: Colonic diverticulosis without surrounding inflammatory change. Fecal stasis within the colon. Appendix: The air-filled appendix is of normal caliber (axial series, images 171 through 180). Vasculature: Unremarkable. Lymph nodes: Limited evaluation without intravenous contrast. Pelvic structures: Limited evaluation of the pelvis secondary to streak metallic artifact from the patient's bilateral h ip prostheses. Body wall and musculoskeletal: Trace degenerative disease is identified within the lumbosacral spine, specifically at the level of L 5/S1 with osteophyte formation, disc space narrowing, and facet arthropathy. There are bridging endplate osteophytes at multiple levels in the thoracic and lumbar spines, consist ent with diffuse idiopathic skeletal hyperostosis (DISH). Sacral perineural cysts are redemonstrated, unchanged dating back to 2004. IMPRESSION: Nondisplaced fracture of the upper sternum for which clinical correlation is needed regarding point t enderness in this location. No retrosternal hematoma is appreciated. No additional acute findings suggesting traumatic injury, as detailed above. Reviewed, dictated and finalized at location A. IMPRESSION: Nondisplaced fracture of the upper sternum for which clinical correlation is ne eded regarding point tenderness in this location. No retrosternal hematoma is appreciated. No additional acute findings suggesting traumatic injury, as detailed above.
--- OUTSIDE RECORDS SUMMARY | 2024-10-10 21:47 | XMS_ITS | Data Portability ---
Author Organization [place] [facility], Main Office Address [address] [place] [address] Care Team Providers Care Knitter Wire Mesh Name Role Phone CAROLINE BLANC Primary Care Provider CAROLINE BLANC Referring Provider [phone] Assessment Encounter Date Assessment Date Assessment LastModified by Organization Details LastModified Time 10/14/2022 10/14/2022 Patient returns. Her right hip has become terrible for her. She complains of pain in the medial groin of the right hip. She is now approximately 2 years after her left total hip replacement which is doing fine now. She has been going to physical therapy since June 09 which she started going for her back which was 10/10 in severity but that is now improved. She has never had back problems before. Than the right hip started becoming severe. She has been taking Celebrex 200 mg and Tylenol . She has used Aleve and ibuprofen the past as well. She complains of pain in the medial groin to the right hip the anterolateral hip a lateral hip and occasionally the buttock. She feels that the lateral hip pain is the worst. On her best days and is only 2/10. On the worst days the pain is quite severe and throbs constantly whether she is sitting or standing an even sleeping . On examination today she has flexion of the right hip to 125 and it hurts to extend the hip back down. She had internal rotation 20 causing anterior groin hip pain Stinchfield maneuver cause the same external rotation was 30 . Her greater trochanter was nontender. She had 5/5 abduction strength. She had 2+ dorsalis lead us 1+ posterior tibial artery pulses palpable normal sensation. Her skin looks fine. No lower extremity edema. X-rays today show that her joint space narrowing in the right hip has progressed from mild back in 2021 to moderately severe currently to less than 2 mm. Impression: Patient has moderately severe osteoarthritis of the right hip. She does not feel she is ready for hip replacement yet inch would like to postpone it as long as possible. I talked her about the option of using diclofenac and a cane in left hand. She did tolerate the diclofenac before her left hip replacement but she did not tolerate misoprostol which caused diarrhea. She does take pantoprazole for reflux soft Brunilda on daily basis. I have discussed with her that if she has peptic ulcer disease diclofenac and exacerbate that and she was given structures he describing possible side effects of anti-inflammatory medication use. We will prescribe 75 mg twice daily and if she gets excellent relief she can back down to taking one daily. I will see her back in 6 weeks assess her progress. 30 minutes were spent total care this patient more than half the time spent in [id number] care. Not available 10/25/2022 19:25:27 11/27/2022 11/27/2022 HPI: Patient returns. She is here for follow-up of her right hip. She went to physical therapy she started taking diclofenac 6 weeks ago. She has had significant improvement of her symptoms. At this point she is having minimal to no symptoms. She maintains her home exercise program. She notes that the right hip little bit stiff but the overall pain she was having room last saw her has gone. She does have moderately severe osteoarthritis of the right hip. Physical exam: 67-year-old female alert pleasant. She is walking very well today without limp. Impression: Patient has known moderately severe osteoarthritis of the right hip. At this point her symptoms are very tolerable. She is going to continue with the diclofenac. We will blood 3 months make sure she is not having any side effects from the medication. We talked about the fact that she can maintain medication long she wishes as long as her symptoms remain tolerable. She realizes at some point she is going to need total arthroplasty but is hoping to put off as long as possible at this point. Her back pain has improved as well with physical therapy in the diclofenac. If this changes or worsens she will call otherwise this point plan on seeing her back as needed. I did give her prescription for blood work to be done at the 3 month ruperto. She will call 2 days after the blood work so that we can check make sure that everything is okay and then continue to refill her diclofenac at that 0.20 minutes was spent in patient more than half of this in [id number] conversation Not available 11/27/2022 12:07:27 03/05/2023 03/05/2023 Impression: 1. Patient has moderately severe osteoarthritis of the right hip which has become severely symptomatic. She has optimized nonsurgical treatment continues to take diclofenac 75 mg twice daily and she did have a round of physical therapy. She underwent left total hip arthroplasty in 2020 in this happy with this and would like to have the same procedure performed of the right hip. I reviewed the risks of surgery with her in detail. I explained that will be numbness around the incision with a direct anterior approach. Risk of infection discussed. She states her teeth her satisfactory condition. Need for antibiotics before dental work was reviewed. She has no personal history of DVT and the risks of this were reviewed. I reviewed my preference for using Eliquis for 5 weeks after surgery. Risk of heterotopic ossification was discussed and my preference for using Celebrex for 10 days after surgery to minimize that risk. Risk of leg length discrepancy, dislocation, fracture, nerve injury, bleeding and transfusion, component loosening or breakage requiring revision surgery, and medical complications such as heart attack stroke pulmonary embolism and were reviewed. She understands and wishes to proceed and she is hoping to have this done as soon as possible and have 6 weeks to recover prior to her planned cruise to [place]. I have discussed with her that if she follows through with that plan I would recommend she take baby aspirin twice daily during her cruise to afford a little bit of DVT prophylaxis during her plane ride . 2. Patient has rather severe degenerative disc disease at L5-S1 radiographically. Higher description she has occasional pain at night that goes to the lateral calf seems to come from her lower back and she may have a little bit of a radiculopathy but does not have sensory or motor deficit on exam today. I reviewed with her that unfortunately hip replacement is not going to do anything to help her back problems specifically. 45 minutes were spent in total care this patient more than half the time spent in [id number] care. The Not available 03/07/2023 16:34:34 04/05/2023 04/05/2023 HPI: Patient returns. She is here for follow-up of her right anterior total hip arthroplasty. She is now 3 weeks out. She missed her 1st follow-up. She had COVID. She is doing better at this point. She remains on her Eliquis. Physical exam: Patient's incision is well healed. She is walking very well today without limp or assistance. There is no increased swelling in either lower extremity. Impression: Patient is doing well 21 days out from right anterior total hip arthroplasty. She will finish up her 5 week course of Eliquis. She may slowly increase activities as tolerated. I will see her in 2 weeks with x-rays of the hip that time Not available 04/05/2023 17:24:14 04/21/2023 04/21/2023 HPI: Patient is now 5 weeks out from right anterior total hip arthroplasty. she is doing very well. She has little bit of soreness occasionally around the hip but otherwise she has been back to most normal daily activities. Physical exam: Patient is walking very well today. There is no increased swelling in either lower extremity. She has no pain with range of motion of the hip. Impression: Patient is doing very well 5 weeks out right anterior total hip arthroplasty. X-rays look excellent. Patient is very happy with her results. Long-term risk of infection was discussed. At this point we will see her back at her 1 year anniversary from the right hip with x-rays. Not available 04/21/2023 10:45:21 Plan of Treatment Reminders Order Date Submit Date Provider Last Modified By Organization Details Last Modified Time Details Appointments None recorded. Lab CBC w/ auto diff 2022 023 [facility], [address] [address], [place], [address], 3 09:15:17 CMP, serum or plasma 2022 023 [facility], [address] [facility] [address], [place], [address], 3 09:15:18 Referral None recorded. Procedures None recorded. Surgeries None recorded. Imaging XR, hip + pelvis, unilateral 2022 023 [email or web address] [facility] [place], [address], [place], [address], 3 10:45:52 XR, hip + pelvis, unilateral 2022 023 [email or web address] [facility] [place], [address], [place], [address], 3 10:21:32 XR, lumbar spine 2022 023 [email or web address] [facility] [place], [address], [place], [address], 3 10:21:32 XR, hip + pelvis, unilateral 2022 023 [email or web address] [facility] [place], [address], [place], [address], 3 09:26:36 Medication Orders diclofenac sodium 75 mg tablet,jody yed release 2022 023 [email or web address] [id number], [address] [place], [address], 16:55:12 Patient TargetsNo targets recorded. Patient InstructionsNo instructions recorded. Reason for Referral None Reported. Results Created Date Observation Date Name Description Value Unit Range Abnormal Flag Note LastModifiedBy Organization Detail LastModifiedTime 10/15/19 23 XR, hip + pelvi s, unila teral No observ ation record ed. [email or web address] [facility] [place] [address], [place], [address], 10/25/2022 19:20:10 03/05/20 23 XR, hip + pelvi s, unila teral No observ ation record ed. [email or web address] [facility] [place] [address], [place], [address], 03/07/2023 16:25:45 03/05/20 XR, lumba r spine No observ ation record ed. [email or web address] [facility] [place] [address], [place], [address], 03/07/2023 16:24:11 03/10/20 23 03/09/2023 elect mirna cleaninggr am No observ ation record ed. [email or web address] Not Available 2022 15:47:03 03/15/20 23 03/15/2023 XR, hip + pelvi s, unila teral No observ ation record ed. [email or web address], [place], [address], 03/16/2023 09:41:04 04/21/20 23 XR, hip + pelvi s, unila teral No observ ation record ed. [facility] [place] [address], [place], [address], 04/21/2023 10:44:24 Result Notes None recorded. Problems Name Problem SNOMED Code Status Onset Date Resolution Date Notes Provider Name and Address Organization Details Recorded Time Osteoarthr itis 309581128 Active Not Available [facility] 3 20:56:24 Pain in right hip joint 3784619430420 02 Active 2022 IESHA Saavedra, [employer] [facility] 3 10:11:14 Osteoarthr itis of right hip joint 4366949519202 07 Active 2022 IESHA Saavedra, [employer] 3 10:11:25 Problem Notes None recorded. Procedures Surgical History Date Name Laterality Status Provider Name and Address Organization Details Recorded Time total replacement of hip completed Not Available [facility] 09/23/2022 20:55:44 Imaging Results Imaging Date Name Status LastModified by Organization Details LastModified Time 10/14/2022 XR, hip + pelvis, unilateral completed [email or web address] [facility] [place] [address], [place], [address], 10/25/2022 19:20:10 03/05/2023 XR, hip + pelvis, unilateral completed [email or web address] [facility] [place] [address], [place], [address], 03/07/2023 16:25:45 03/05/2023 XR, lumbar spine completed [email or web address] [facility] [place] [address], [place], [address], 03/07/2023 16:24:11 03/09/2023 electrocardiogram completed [email or web address] Informa tion not available 03/10/2023 15:47:03 03/15/2023 XR, hip + pelvis, unilateral completed [address], [place], [address], 03/16/2023 09:41:04 04/21/2023 XR, hip + pelvis, unilateral completed [facility] [place] [address], [place], [address], 04/21/2023 10:44:24 Procedure Notes None recorded. Medical Equipment None Reported. Medications Name Sig Start Date Stop Date Status Note LastModified by Organization Details LastModified Time celecoxib 200 mg capsule TAKE 1 CAPSULE BY MOUTH EVERY DAY active Not Available Not Available No t Available atorvasta tin 40 mg tablet TAKE 1 TABLET BY MOUTH EVERY DAY active Not Available Not Available No t Available paroxetin e 10 mg tablet TAKE 1 TABLET BY MOUTH EVERY DAY 10/22 completed Not Available Not Available Not Available atorvasta tin 20 mg tablet TAKE 1 TABLET BY MOUTH EVERYDAY AT BEDTIME active Not Available Not Available No t Available simvastat in 40 mg tablet 40 MG ORALLY DAILY TAKE 1 TABLET BY MOUTH EVERY DAY 10/14 completed Not Available Not Available Not Available meloxicam 7.5 mg tablet TAKE 1 TABLET BY MOUTH EVERY DAY 11/27 completed Not Available Not Available Not Available amoxicill in 875 mg tablet 08/23 completed Not Available Not Available Not Available Kenalog 10 mg/mL suspensio n for injection In office injectio n administ ered by the provider 02/25 completed [facility]: [id number] Not Available Not Available Not Available levothyro xine 50 mcg tablet TAKE 1 TABLET BY MOUTH EVERY DAY active Not Available Not Available No t Available cephalexi n 500 mg capsule TAKE 1 CAPSULE BY MOUTH EVERY 6 HOURS active Not Available Not Available No t Available paroxetin e 20 mg tablet TAKE 1 TABLET BY MOUTH EVERY DAY active Not Available Not Available No t Available pantopraz ole 40 mg tablet,de layed release TAKE 1 TABLET BY MOUTH EVERY DAY IN THE MORNING active Not Available Not Available No t Available misoprost ol 200 mcg tablet TAKE 1 TABLET PO BID WITH DICLOFEN AC active Not Available Not Available No t Available fluoxetin e 10 mg capsule TAKE 1 CAPSULE BY MOUTH EVERY DAY 02/25 completed Not Available Not Available Not Available Xylocaine 20 mg/mL (2 %) injection solution In office injectio n administ ered by the provider 02/25 completed Not Available Not Available Not Available omeprazol e 20 mg capsule,d elayed release TAKE 1 CAPSULE BY MOUTH EVERY DAY 10/22 completed Not Available Not Available Not Available diclofena c sodium 75 mg tablet,de layed release TAKE 1 TABLET BY MOUTH TWICE A DAY 04/05 completed Not Available Not Available Not Available diclofena c sodium 50 mg tablet,de layed release TAKE 1 TABLET BY MOUTH TWICE A DAY WITH FOOD active stop this 1week before surgery Not Available Not Available Not Available ergocalci ferol (vitamin D2) 1,250 mcg (50,000 unit) capsule 01/22 completed Not Available Not Available Not Available methylpre dnisolone 4 mg tablets in a dose pack 08/21 completed Not Available Not Available Not Available oxycodone 5 mg tablet TAKE 1 TABLET BY MOUTH EVERY 4 HOURS active Not Available Not Available No t Available eszopiclo ne 2 mg tablet TAKE 1 TABLET BY MOUTH ONCE PRIOR TO SLEEP STUDY 04/05 completed Not Available Not Available Not Available pregabali n 50 mg capsule TAKE 1 CAPSULE BY MOUTH TWICE A DAY 11/27 completed Not Available Not Available Not Available BD Ultra-Fin e Hazel Pen Needle 32 gauge x USE WITH OZEMPIC active Not Available Not Available No t Available Eliquis 2.5 mg tablet Take 1 tablet twice a day by oral route. 03/10 completed Not Available Not Available Not Available Flowflex COVID-19 Antigen Home Test kit USE DIRECTED 04/22 completed Not Available Not Available Not Available Lagevrio 200 mg capsule (EUA) TAKE 4 CAPSULES BY MOUTH EVERY 12 HOURS FOR 5 DAYS active Not Available Not Available No t Available Ozempic 0.25 mg or 0.5 mg (2 mg/3 mL) subcutane ous pen injector INJECT 0.25 MG (0.4 ML) SUBCUTAN EOUSLY WEEKLY FOR 4 WEEKS active Not Available Not Available No t Available Vitals Date Recorded Body height Provider Name an d Address Organization Details Last Updated DateTime 10/14/2022 162.56 cm Gail Tam [employer] [facility] 10/14/2022 10:10:37 Date Recorded Body height Body mass index (BMI) Body weight Provider Name and Address Organization Details Last Updated DateTime 11/27/2022 162.56 cm 28.5 kg/m2 64519.33 g Gail Tam [employer] 11/27/2022 11:24:43 Date Recorded Body height Body mass index (BMI) Body weight Provider Name and Address Organization Details Last Updated DateTime 03/05/2023 162.56 cm 28 kg/m2 38721.56 g Gail Tam [employer] [facility] 03/05/2023 10:15:20 Date Recorded Body height Provider Name an d Address Organization Details Last Updated DateTime 04/05/2023 162.56 cm Gail Tam [employer] 04/05/2023 16:55:03 Date Recorded Body height Provider Name an d Address Organization Details Last Updated DateTime 04/21/2023 162.56 cm Gail Tam [employer] [facility] 04/21/2023 09:58:03 Social History Question Answer Notes LastModified by Organizat ion Details LastModified Time Tobacco Smoking Status Former Smoker quit 10 yrs ago Not Available [facility] 09/23/2022 20:55:32 What Is Your Level Of Alcohol Consumption? Moderate [id number] Information not available 09/23/2022 What Was The Date Of Your Most Recent Tobacco Screening? 10/21/2020 [id number] Information not available 09/23/2022 Sex: Unknown Functional Status None recorded. Mental Status None recorded. Family History Relationship Description Onset Age of this Age Resolved Age Notes LastModified by Organization Details LastModified Time Mother Heart disease [id number] Not available 09/23/2022 20:55:44 Mother Hypertensive disorder [id number] Not available 09/23/2022 20:55:45 Maternal Grandmother Family history of stroke [id number] Not available 09/23/2022 20:55:45 Unspecified Relation Family history of malignant neoplasm [id number] Not available 09/23/2022 20:55:45 Medical History Condition Response BLINDNESS N KIDNEY STONES N MRSA N CARPAL TUNNEL SYNDROME N LUNG DISEASE/DISORDER N HISTORY OF DRUG ABUSE N COPD N RADIATION / CHEMOTHERAPY N SPORTS INJURY N ANKLE PAIN N BLOOD DISEASES N SCHIZOPHRENIA N SHINGLES N SHOULDER PAIN N DEPRESSION (INCLUDING POST ) N BOWEL PROBLEMS N STROKE/TIA N ULCERS N KNEE PAIN N BENIGN PROSTATIC HYPERPLASIA N OBESITY N GERD/NAUSEA N ANEURYSM N URINARY/BLADDER/KIDNEY PROBLEMS N CORONARY ARTERY DISEASE (CAD) N ADDICTION CONCERNS N USE OF BLOOD THINNERS N SKIN PROBLEMS N EMPHYSEMA N MUSCLE,JOINT OR BONE PROBLEMS N DVT N STOMACH ULCERS N BLOOD CLOTS N USE OF NSAIDS N CONCUSSION OR SPINAL TRAUMA N NEUROPATHY N AIDS/HIV N FRACTURES N HYPERTENSION N ELBOW PAIN N TOURETTE'S N Metal allergy N ANXIETY DISORDER N BLOOD TRANSFUSION N ANEMIA/BLOOD DISORDER Y BIPOLAR DISORDER N BRONCHITIS N OSTEOARTHRITIS N TUBERCULOSIS N FOOT PROBLEM N HEART VALVE DISORDERS N SOFT TISSUE INJURY N ALLERGIES/HAYFEVER N INFECTIOUS DISEASE N HEART ARRHYTHMIA N INSOMNIA N RHEUMATOID ARTHRITIS N HIGH CHOLESTEROL / HYPERLIPIDEMIA N EDEMA N CHRONIC PAIN SYNDROME N CAROTID BLOCKAGE N BACK / NECK PROBLEMS N HAVE YOU BEEN HOSPITALIZED OR SEEN IN [facility] IN THE PAST YEAR ? N BURSITIS N HERNIATED DISC N DIALYSIS N FIBROMYALGIA N OSTEOPOROSIS Y ARTHRITIS Y NO SIGNIFICANT PAST MEDICAL HISTORY N PERIPHERAL NEUROPATHY N DIABETES, TYPE N HEARTBURN / REFLUX N HEPATITIS / LIVER DISEASE N GOUT N SLEEP DISORDER N ALZHEIMER'S DISEASE N HERPES N SEIZURES/EPILEPSY N HEADACHES/MIGRAINES N VASCULAR DISEASE N HIP PAIN N Blood Disorder N DIZZINESS N HEAD TRAUMA OR INJURY N HEART DISEASE/HEART PROBLEMS N MULTIPLE SCLEROSIS N CARDIAC ARRHYTHMIA N CANCER: SPECIFY N ANESTHESIA COMPLICATIONS N ATRIAL FIBRILLATION N AUTOIMMUNE DISEASE N Gynecological HistoryNo gynecological history recorded. Obstetrics History GPAL:G 0 P 0 0 0 0 Past Encounters Encounter ID Performer Location Encounter Start Date Encounter Closed Date Diagnosis/Indication Diagnosis SNOMED-CT Code Diagnosis ICD10 Code Diagnosis Note [id number] [facility] [place] [address] [place], [place] [address] 10/21/2020 00:00:00 10/21/2020 17:34:24 [id number] [facility] [place] [address] [place] [address] 11/06/2020 00:00:00 11/10/2020 16:39:19 [id number] [facility] [place] [address] [place] [address] 01/22/2021 00:00:00 01/22/2021 11:57:18 [id number] [facility] [place] [address] [place] [address] 02/10/2021 00:00:00 02/10/2021 15:48:31 [id number] [facility] [place] [address] [place] [address] 03/10/2021 00:00:00 03/10/2021 17:44:02 [id number] [facility] [place] [address] [place] [address] 04/25/2021 00:00:00 04/25/2021 13:45:31 [id number] [facility] [place] [address] [place] [address] 10/22/2021 00:00:00 10/22/2021 10:55:32 [id number] [facility] [place] [address] [place] [address] 02/25/2022 00:00:00 03/02/2022 14:30:59 [id number] [facility] [place] [address] [place] [address] 03/25/2022 00:00:00 03/27/2022 08:54:20 [id number] [facility] [place] [address] [place] [address] 04/22/2022 00:00:00 04/22/2022 11:46:01 [id number] Aurbey Connolly MD [facility] [place] [address] [place] [address] 10/14/2022 10:04:00 10/26/2022 09:26:36 Pain in right hip joint 9389950025 90970 M25.551 [id number] ILEANA Hastings [facility] [place] [address] [place] [address] 11/27/2022 10:46:45 11/27/2022 12:26:15 Osteoarthritis 676661157 M16.11 [id number] Aubrey Connolly MD [facility] [place] [address] [place] [address] 03/05/2023 09:55:24 03/08/2023 10:21:32 Osteoarthritis of right hip joint 8158971891 94062 M16.11 [id number] ILEANA Hastings [facility] [place] [address] [place] [address] 04/05/2023 16:53:09 04/05/2023 17:31:42 History of total replacement of right hip joint 6819378086 14110 Z96.875 [id number] ILEANA Hastings [facility] [place] [address] [place] [address] 04/21/2023 09:53:41 04/21/2023 10:45:51 History of total replacement of right hip joint 8896316518 54655 Z96.641 Health Concerns Section Related Observation LastModified by Organization Detai ls LastModified Time None Recorded Concern Status LastModified by Organization Details LastModified Time None Recorded Advance Directives Directive None Recorded Payers Encounter Date Sequence Insurance Name Policy Number Policy Bermudez Covered Member ID Bermudez Member ID Guarantor Name 10/14/2022 1 [place] Emiliana Nealnon [id number] Emiliana Sunni 10/14/2022 2 [employer] [place] (MEDICARE SUPPLEMENT) Emiliana Moore Sunni [id number] Emiliana Sunni 11/27/2022 1 [place] Emiliana Moore Sunni [id number] Emiliana Sunni 11/27/2022 2 [employer] [place] (MEDICARE SUPPLEMENT) Emiliana Moore McKinnon [id number] Emiliana BoxKinnon 03/05/2023 1 [place] Emiliana Nealnon [id number] Emiliana Sunni 03/05/2023 2 [employer] [place] (MEDICARE SUPPLEMENT) Emiliana Moore McKinnon [id number] Emiliana BoxKinnon 04/05/2023 1 [place] Emiliana Moore McKinnon [id number] Emiliana BoxKinnon 04/05/2023 2 [employer] [place] (MEDICARE SUPPLEMENT) Emiliana Moore McKinnon [id number] Emiliana Sunni 04/21/2023 1 [place] Emiliana Nealnon [id number] Emiliana Sunni 04/21/2023 2 [employer] [place] (MEDICARE SUPPLEMENT) Emiliana Moore McKinnon [id number] Emiliana Moeller Notes Date Note Type Note Provider Name and Address Organization Details Recorded Time 03/05/2023 text/html patient was last seen on November 27, 3 months ago. She was taking diclofenac 75 mg twice daily and she completed a course of physical therapy from May of 2022 through November of 2022 for her lower back pain and right hip pain and she felt her right hip was doing better. X-rays that time demonstrated moderately severe osteoarthritis of the right hip. However, over the last 3 months her symptoms have progressively worsened. Her chief complaint is anterior right groin pain that occasionally radiates down the anterior thigh to the anterior knee. she states that if she mows the grass for example she is down for 2 days after that she. She no longer walks for exercise as given of yoga and dance because of her right hip groin pain. The he has also had occasional lower back pain. Some of her worst pain is in the medial anterior groin with certain movements of the hip. If she sits in the car for 15-20 minutes she complains of severe pain in left buttock in the region of the ischial tuberosity and gets relief by sitting up. She is going on a cruise that the parts from [place] in late April. She would like to talk about proceeding with hip replacement on the right. She had a bone density test in November states it was in the normal range. She has been taking vitamin D3 every day. Aubrey Connolly MD [address] [place] [address], [place] [address], [place], [address], [place] - [facility] [employer] [facility] 03/07/2023 16:34:48 OBGyn Episode No OBEpisode recorded.
--- OUTSIDE RECORDS SUMMARY | 2024-10-10 21:47 | XMS_ITS | Referral Summary ---
Author Organization [facility] Address [address] [place] [id number] Care Team Providers Care Clinical Quality Rn Name Role Phone Kate Vanegas MD Primary Care Provider [phone] Allergies No known active allergies Medications simvastatin (ZOCOR) 40 mg tablet Take 40 mg by mouth daily 11/20/2020 Active omeprazole (PriLOSEC) 20 mg capsule Take by mouth daily 11/01/2020 Active PARoxetine (PAXIL) 10 mg tablet Take 10 mg by mouth daily 10/22/2020 Active levothyroxine (SYNTHROID) 50 mcg tablet Take 50 mcg by mouth daily 10/21/[address] (VOLTAREN) 50 mg EC tablet Take 50 mg by mouth 09/30/2020 Active ergocalciferol (VITAMIN D) 50,000 unit capsule 11/12/2020 Active calcium-vits W2-L-H6-minerals 166.75 mg- 166.75 unit capsule Take by mouth Active Active Problems Problem Noted Date Diagnosed Date Encounter for preprocedural cardiovascular exami [facility] 12/10/2020 Hyperlipidemia Dietary counseling Immunizations Immunization Administration Dates Next Due Pfizer SARS-CoV-2 Monovalent Vaccination (12+ Yrs) PURPLE 10/07/2020,09/08/2020 Social History Tobacco Use Types Packs/Day Years Used Date Smoking Tobacco: Former Personal Safety Answer Date Recorded Getting School Help Needed Not on file 09/19 Comments Unknown Sex and Gender Information Value Date Recorded Sex Assigned at Not on file Legal Sex Female 6:38 PM TRANSFUSION AIDE Gender Identity Not on file Sexual Orientation Not on file Last Filed Vital Signs Vital Sign Reading Time Taken Comments Blood Pressure 144/84 08/10/2021 9:00 AM TRANSFUSION AIDE Pulse 83 08/10/2021 9:00 AM TRANSFUSION AIDE Temperature 37.1 C (98.8 F) 08/10/2021 9:00 AM TRANSFUSION AIDE Respiratory Rate 16 08/10/2021 9:00 AM TRANSFUSION AIDE Oxygen Saturation 96% 08/10/2021 9:00 AM TRANSFUSION AIDE Inhaled Oxygen Concentration - - Weight 73.9 kg (163 lb) 08/10/2021 9:00 AM TRANSFUSION AIDE Height 163.8 cm (5' 4.5 ) 08/10/2021 9:00 AM TRANSFUSION AIDE Body Mass Index 27.55 08/10/2021 9:00 AM TRANSFUSION AIDE Plan of Treatment Not on file Insurance [facility] HMO[facility]PPO Address: [facility] [address] [place] [address] MEDICARE [facility] [place] [place] [address] Care Teams Clinical Quality Rn Relationship Specialty Start Date End Date Kate Vanegas MD [address] [place] [address] PCP - General Family Medicine 08/07/19
--- OUTSIDE RECORDS SUMMARY | 2024-10-10 21:47 | XMS_ITS | Clinical Summary ---
Author Organization [facility] Address [address] [place] [id number] Care Team Providers Care Director Post Name Role Phone Kate Vanegas MD Primary Care Provider [phone] Allergies No known active allergies Medications simvastatin [...] D) 50,000 unit capsule 11/12/2020 Active calcium-vits A6-H-T3-minerals 166.75 mg- 166.75 unit capsule Take by mouth Active Active Problems Problem Noted Date Diagnosed Date Encounter for preprocedural cardiovascular exami [facility] 12/10/2020 Hyperlipidemia Dietary counseling Immunizations Immunization Administration Dates Next Due Pfizer SARS-CoV-2 Monovalent Vaccination (12+ Yrs) PURPLE 10/07/2020,09/08/2020 Surgical History Surgery Date Site/Laterality Comments [place] LIG/TRNSXJ FLP TUBE ABDL/VAG APPR UNI/BI Tubal Ligation - (Added by TW Conv) TUBAL LIGATION 07/26/1980 - 07/25/1981 Medical History Medical History Date Comments Convulsions (HCC) Convulsive dis order - (Added by TW Conv) Personal history of other me ntal and behavioral disorders History of depression - (Add ed by TW Conv) Thyroid disease Hyperlipidemia Acid indigestion Pneumonia Anxiety and depression Arthritis Family History Medical History Relation Name Comments stomach bleed Mother Stroke Other 1 Stroke Syndrome - (Added by TW Conv) Cancer Other 2 Cancer - (Added by TW Conv) Relation Name Status Comments Brother Alive Father Alive Mother (Age 87) Other 1 Other 2 Sister 1 Alive Sister 2 Alive Social History Tobacco Use Types Packs/Day Years Used Date Smoking Tobacco: Former Personal Safety Answer Date Recorded Getting School Help Needed Not on file 09/19 Comments Unknown Sex and Gender Information Value Date Recorded Sex Assigned at Not on file Legal Sex Female 6:38 PM DELIVERY REPRESENTATIVE Gender Identity Not on file Sexual Orientation Not on file Obstetrics History Last Filed Vital Signs Vital Sign Reading Time Taken Comments Blood Pressure 144/84 08/10/2021 9:00 AM DELIVERY REPRESENTATIVE Pulse 83 08/10/2021 9:00 AM DELIVERY REPRESENTATIVE Temperature 37.1 C (98.8 F) 08/10/2021 9:00 AM DELIVERY REPRESENTATIVE Respiratory Rate 16 08/10/2021 9:00 AM DELIVERY REPRESENTATIVE Oxygen Saturation 96% 08/10/2021 9:00 AM DELIVERY REPRESENTATIVE Inhaled Oxygen Concentration - - Weight 73.9 kg (163 lb) 08/10/2021 9:00 AM DELIVERY REPRESENTATIVE Height 163.8 cm (5' 4.5 ) 08/10/2021 9:00 AM DELIVERY REPRESENTATIVE Body Mass Index 27.55 08/10/2021 9:00 AM DELIVERY REPRESENTATIVE Plan of Treatment Not on file Insurance [facility] H[facility]/PPO Address: [address] [address] [place] [address] MEDICARE [facility] Care Teams Director Post Relationship Specialty Start Date End Date Kate Vanegas MD [address] [place] [address] PCP - General Family Medicine 08/07/19
--- OUTSIDE RECORDS SUMMARY | 2024-10-10 21:47 | XMS_ITS | Clinical Summary ---
Author Organization [facility] Address [address] [place] [address] Phone Care Team Providers Care Striper Spray Gun Name Role Phone Unavailable Primary Care Provider Unavailabl e Allergies No known active allergies Medications meloxicam (MOBIC) 7.5 mg tablet Take 7.5 mg by mouth daily. Active PARoxetine HCl (PAXIL) 20 mg tablet Take 20 mg by mouth daily. Active pantoprazole (PROTONIX) 40 mg Tablet, Delayed Release (E.C.) Take 40 mg by mouth daily. Active levothyroxine 50 mcg tablet Take 50 mcg by mouth daily in the morning. Active CALCIUM CARBONATE-VITAMI N D3 ORAL Take by mouth. Active CALCIUM CARBONATE-VITAMI N D3 ORAL Take by mouth. Active Active Problems No known active problems Family History Medical History Relation Name Comments High Cholesterol Father High Cholesterol Maternal Grandmother Hypertension Maternal Grandmother Heart Disease Mother High Cholesterol Mother Hypertension Mother Other Mother spinal stenosis Cancer Paternal Grandfather Other Sister spinal stenosis Relation Name Status Comments Father Maternal Grandmother Mother Paternal Grandfather Sister Social History Tobacco Use Types Packs/Day Years Used Date Smoking Tobacco: Former Cigarettes Q uit: 2000 Tobacco Cessation:Counseling Given: Not Answered Alcohol Use Standard Drinks/Week Comments Yes 0 (1 standard drink = 0.6 oz pur e alcohol) Comments Unknown Sex and Gender Information Value Date Recorded Sex Assigned at Not on file Legal Sex Female 3:02 PM VEHICLE TRIMMER Gender Identity Not on file Sexual Orientation Not on file Last Filed Vital Signs Vital Sign Reading Time Taken Comments Blood Pressure 149/87 08/11/2022 11:05 AM VEHICLE TRIMMER Pulse 72 08/11/2022 11:05 AM VEHICLE TRIMMER Temperature 36.5 C (97.7 F) 08/11/2022 11:05 AM VEHICLE TRIMMER Respiratory Rate - - Oxygen Saturation - - Inhaled Oxygen Concentration - - Weight 76.8 kg (169 lb 4.8 oz) 08/11/2022 11:05 AM VEHICLE TRIMMER Height 165.1 cm (5' 5 ) 08/11/2022 11:05 AM VEHICLE TRIMMER Body Mass Index 28.17 08/11/2022 11:05 AM VEHICLE TRIMMER Plan of Treatment Health Maintenance Due Date Last Done Comments DTAP/TDAP/TD VACCINES (1 - Tdap) 1975 BREAST CANCER SCREENING 1996 COLORECTAL SCREENING 2001 Colorectal Cancer Screening 2001 FIT-DNA Q 3 years 2001 FIT/FOBT Q 1 year 2001 Flex Sig/CT Colonography Q 5 years 2001 PNEUMOCOCCAL VACCINE 50+ YEA RS (1 of 1 - PCV) 2006 ZOSTER VACCINE (1 of 2) 2006 OSTEOPOROSIS SCREENING 2021 INFLUENZA VACCINE (#1) 2024 COVID-19 Vaccine ( season) 2024, 09/08/2020 RSV VACCINE (60+ or ) (1 - 1-dose 75+ series) 2031 Insurance MEDICARE PART A AND B [facility] [place] [address]
[2024-10-10 22:04] VITALS: BP 124/76; PULSE 87; RESP 16; TEMP 36.9; O2SAT 98
[2024-10-10 22:52] VITALS: BP 127/80; PULSE 95; RESP 16; O2SAT 95
--- OUTSIDE RECORDS SUMMARY | 2024-10-10 23:19 | XMS_ITS | Referral Summary ---
Author Organization [facility] Address [address] [place] [id number] Care Team Providers Care Web Operations Lead Name Role Phone Kate Vanegas MD Primary Care Provider [phone] Allergies No known active allergies Medications simvastatin [...] D) 50,000 unit capsule 11/12/2020 Active calcium-vits Z3-N-H3-minerals 166.75 mg- 166.75 unit capsule Take by mouth Active Active Problems Problem Noted Date Diagnosed Date Encounter for preprocedural [facility] 12/10/2020 Hyperlipidemia Dietary counseling Immunizations Immunization Administration Dates Next Due Pfizer SARS-CoV-2 Monovalent Vaccination (12+ Yrs) PURPLE 10/07/2020,09/08/2020 Social History Tobacco Use Types Packs/Day Years Used Date Smoking Tobacco: Former Personal Safety Answer Date Recorded Getting School Help Needed Not on file 09/19 Comments Unknown Sex and Gender Information Value Date Recorded Sex Assigned at Not on file Legal Sex Female 6:38 PM PRODUCTION SUPERINTENDENT HYDRO Gender Identity Not on file Sexual Orientation Not on file Last Filed Vital Signs Vital Sign Reading Time Taken Comments Blood Pressure 144/84 08/10/2021 9:00 AM PRODUCTION SUPERINTENDENT HYDRO Pulse 83 08/10/2021 9:00 AM PRODUCTION SUPERINTENDENT HYDRO Temperature 37.1 C (98.8 F) 08/10/2021 9:00 AM PRODUCTION SUPERINTENDENT HYDRO Respiratory Rate 16 08/10/2021 9:00 AM PRODUCTION SUPERINTENDENT HYDRO Oxygen Saturation 96% 08/10/2021 9:00 AM PRODUCTION SUPERINTENDENT HYDRO Inhaled Oxygen Concentration - - Weight 73.9 kg (163 lb) 08/10/2021 9:00 AM PRODUCTION SUPERINTENDENT HYDRO Height 163.8 cm (5' 4.5 ) 08/10/2021 9:00 AM PRODUCTION SUPERINTENDENT HYDRO Body Mass Index 27.55 08/10/2021 9:00 AM PRODUCTION SUPERINTENDENT HYDRO Plan of Treatment Not on file Insurance MEDICARE [facility] [address] [place] [address] Care Teams Web Operations Lead Relationship Specialty Start Date End Date Kate Vanegas MD [address] [place] [address] PCP - General Family Medicine 08/07/19
--- OUTSIDE RECORDS SUMMARY | 2024-10-10 23:19 | XMS_ITS | Clinical Summary ---
Author Organization [facility] Address [address] [place] [address] Phone Care Team Providers Care Goring Cutter Name Role Phone Unavailable Primary Care Provider [...] on file Legal Sex Female 3:02 PM STITCH SEPARATOR Gender Identity Not on file Sexual Orientation Not on file Last Filed Vital Signs Vital Sign Reading Time Taken Comments Blood Pressure 149/87 08/11/2022 11:05 AM STITCH SEPARATOR Pulse 72 08/11/2022 11:05 AM STITCH SEPARATOR Temperature 36.5 C (97.7 F) 08/11/2022 11:05 AM STITCH SEPARATOR Respiratory Rate - - Oxygen Saturation - - Inhaled Oxygen Concentration - - Weight 76.8 kg (169 lb 4.8 oz) 08/11/2022 11:05 AM STITCH SEPARATOR Height 165.1 cm (5' 5 ) 08/11/2022 11:05 AM STITCH SEPARATOR Body Mass Index 28.17 08/11/2022 11:05 AM STITCH SEPARATOR Plan of Treatment Health Maintenance Due Date [...] 2031 Insurance MEDICARE PART A AND B [facility] [place] [address]
--- OUTSIDE RECORDS SUMMARY | 2024-10-10 23:19 | XMS_ITS | Clinical Summary ---
Author Organization [facility] Address [address] [place] [phone] Care Team Providers Care Technical Maintenance Technician Name Role Phone Kate Vanegas MD Primary Care Provider [phone] Allergies No known active allergies Medications simvastatin [...] D) 50,000 unit capsule 11/12/2020 Active calcium-vits R7-B-G5-minerals 166.75 mg- 166.75 unit capsule Take by mouth Active Active Problems Problem Noted Date Diagnosed Date Encounter for preprocedural cardiovascular exam[facility] 12/10/2020 Hyperlipidemia Dietary counseling Immunizations Immunization Administration Dates Next Due Pfizer SARS-CoV-2 Monovalent Vaccination (12+ Yrs) PURPLE 10/07/2020,09/08/2020 Surgical History Surgery Date Site/Laterality Comments [place] LIG/TRNSXJ FLP TUBE ABDL/VAG APPR UNI/BI Tubal [...] on file Legal Sex Female 6:38 PM MANAGER PHP Gender Identity Not on file Sexual Orientation Not on file Obstetrics History Last Filed Vital Signs Vital Sign Reading Time Taken Comments Blood Pressure 144/84 08/10/2021 9:00 AM MANAGER PHP Pulse 83 08/10/2021 9:00 AM MANAGER PHP Temperature 37.1 C (98.8 F) 08/10/2021 9:00 AM MANAGER PHP Respiratory Rate 16 08/10/2021 9:00 AM MANAGER PHP Oxygen Saturation 96% 08/10/2021 9:00 AM MANAGER PHP Inhaled Oxygen Concentration - - Weight 73.9 kg (163 lb) 08/10/2021 9:00 AM MANAGER PHP Height 163.8 cm (5' 4.5 ) 08/10/2021 9:00 AM MANAGER PHP Body Mass Index 27.55 08/10/2021 9:00 AM MANAGER PHP Plan of Treatment Not on file Insurance [facility] CHOICE PLUS MEDICARE [facility] Care Teams Technical Maintenance Technician Relationship Specialty Start Date End Date Kate Vanegas MD [address] [place] [address] PCP - General Family Medicine 08/07/19
[2024-10-10] MEDS: MORPHINE SULFATE (*CRX) 4 MG/ML INJ IV PUSH (23:35)
[2024-10-10] MEDS: ONDANSETRON INJ 4 MG/2 ML VIAL IV PUSH (23:35)
--- NOTE | 2024-10-11 00:05 | ECG_ITS ---
Test Date: 2024-10-11 00:19:56 Measurements Intervals Check Rate: 78 P: 53 AK: 169 QRS: 43 QRSD: 86 T: 55 QT: 351 QTc: 400 Interpretive Statements SINUS RHYTHM LOW QRS VOLTAGE IN PRECORDIAL LEADS [QRS DEFLECTION < 1.0 mV IN CHEST LEADS] NONSPECIFIC T-WAVE ABNORMALITY No previous ECG available for comparison Electronically Signed On 10-11-2024 12:24:32 CDT by Robin White M.D.
[2024-10-11 00:22] VITALS: BP 116/64; PULSE 75; RESP 18; O2SAT 95
[2024-10-11 00:32] LABS: Alanine Aminotransferase 34 U/L (6-35); Albumin Level 4.5 g/dL (3.5-5.1); Alkaline Phosphatase 110 U/L (38-126); Anion Gap 14 mmol/L (4-12); Aspartate Amino Transferase 29 U/L (14-36); Bilirubin,Total 0.4 mg/dL (0.2-1.3); Blood Urea Nitrogen 13 mg/dL (7-17); Calcium 9.3 mg/dL (8.4-10.2); Carbon Dioxide 25 mmol/L (22-30); Chloride 100 mmol/L (98-107); Estimated Glomerular Filt Rate > 60; Glucose 137 mg/dL (65-110); Potassium 4.1 mmol/L (3.4-5.0); Sodium 139 mmol/L (137-145)
[2024-10-11] MEDS: MORPHINE SULFATE (*CRX) 4 MG/ML INJ IV PUSH (00:33)
[2024-10-11 00:38] LABS: Basophils Percent Auto 0.3 % (0.2-1.2); Hemoglobin 12.1 g/dL (12.0-15.0); Immature Granulocyte Absolute 0.33 K/mm3 (0.00-0.031); Immature Granulocyte Percent A 2.3 % (0-0.5); Lymphocytes Absolute Auto 0.99 K/mm3 (0.9-3.2); Mean Corpuscular HGB Conc 32.7 g/dl (32-36); Mean Corpuscular Volume 91.6 fl (80-100); Mean Platelet Volume 10.1 fl (7.4-10.4); Monocytes Absolute Auto 0.5 K/mm3 (0.1-0.6); Monocytes Percent Auto 3.2 % (2.6-8.5); Neutrophils Absolute Auto 12.4 K/mm3 (1.3-6.7); Neutrophils Percent Auto 87.2 % (45.5-73.1); Platelet Count Result 312 k/mm3 (150-375); Red Blood Count 4.04 M/mm3 (4.2-5.4); Red Cell Distribution Width 13.9 % (11.5-14.5); White Blood Count 14.2 K/mm3 (4.5-10.0)
[2024-10-11 00:43] LABS: Troponin I < 0.012 ng/mL (0.000-0.034)
[2024-10-11 00:44] VITALS: O2SAT 87; O2SAT 97
--- NOTE | 2024-10-11 01:02 | ED.GENADULT ---
HPI - General Adult General Chief complaint: Back Pain/Injury Stated complaint: Fell in tub-having back spasms Time Seen by Provider: 10/10/24 22:53 History of Present Illness HPI narrative: Patient is a 61-year-old female who presents emergency department with chief complaint back and thorax pain. The patient states around 730 this evening she slipped fell backwards and struck her back against the tub patient states that she had an episode of vomiting afterwards but reports no loss of consciousness denies head injury the patient reports she has pain with range of motion of her chest and back patient denies saddle anesthesia denies weakness in her arms or legs Related Data Home Medications ?Medication ?Instructions ?Recorded ?Confirmed ?Last Taken ?Type cholecalciferol (vitamin D3) 50 50 mcg PO DAILY 12/11/21 06/27/24 03/08/23 History mcg (2,000 unit) capsule multivitamin 1 tablet PO DAILY 03/09/23 06/27/24 03/08/23 History Allergies Allergy/AdvReac Type Severity Reaction Status Date / Time eye drops Allergy Intermediate Swelling Uncoded 10/10/24 21:46 of the Eye Review of Systems Review of Systems: A 10 system review of systems was completed on the patient and is negative except for what is stated in the HPI. Nursing and ancillary documentation was reviewed. [facility], [facility] Past Medical History Medical History Esophageal web EGD 6.13.22 Benign skin lesion of nose Overweight (BMI 25.0-29.9) Depression Anxiety Osteoarthritis Seizure one time seizure age 21's. off meds , negative eeg x 30 years Iron deficiency anemia Gastro-esophageal reflux disease without esophagitis Hypothyroidism, unspecified Surgical History Surgical History History of right hip replacement February, History of left hip replacement December, Family History Family History Mother Hypertension Family history of cardiovascular disease Family history of Parkinson's disease Grandparent Cerebrovascular accident Sibling Carcinoma of colon, Onset Age: 47 Other Depression Family history of hypercholesterolemia Social History Social History Smoking status: Former smoker Second hand tobacco smoke exposure: No Smoking end date: 07/26/98 Additional smoking assessment comments: PT smoked socially for 20 years, only a few here and there Alcohol intake: current Drinks per week: 14 Substance use: never Substance use type: does not use Do You Feel Safe in your Home?: Yes Lack of Transportation: No Lack of Food: Never True Current Housing: I Have Housing Concerned About Future Housing: No Difficulty Paying Gas/Electric Bills: No Difficulty Paying for Meds: No Currently Unemployed: No Education: Associate Degree Difficulty w/ Childcare or Family Care: No Living arrangements: with family Additional living arrangements comments: significant other Occupation/Education: occupation Gender identity (if verbalized by the patient): Female Spiritual care concerns: No Agree to blood products: Yes Exam Narrative: GENERAL: Well-appearing, well-nourished, and in moderate acute pain distress. HEAD: Normocephalic, atraumatic. EYES: PERRLA and EOMI. ENT: Nares clear, no rhinorrhea or epistaxis. Mucous membranes moist. NECK: Supple. CHEST: Clear to auscultation. No respiratory distress. HEART: Regular rate and rhythm. No murmur heard. Normal peripheral pulses. ABDOMEN: Soft, nontender, nondistended, normal active bowel sounds. EXTREMITIES: Normal range of motion. No edema. SKIN: Warm, dry, no rash. NEURO: No focal deficits. Alert and oriented x3. PSYCH: Normal mood and affect. Course Vital Signs Vital signs: Vital Signs Temperature 36.9 C 10/10/24 22:04 Pulse Rate 87 10/10/24 22:04 Respiratory Rate 16 10/10/24 22:04 Blood Pressure 124/76 10/10/24 22:04 Pulse Oximetry 98 10/10/24 22:04 Oxygen Delivery Room Air 10/10/24 22:04 Temperature 36.9 C 10/10/24 22:04 Pulse Rate 75 10/11/24 00:22 Respiratory Rate 18 10/11/24 00:22 Blood Pressure 116/64 10/11/24 00:22 Pulse Oximetry 97 10/11/24 00:44 Oxygen Delivery Nasal Cannula 10/11/24 00:44 Oxygen Flow Rate 2 10/11/24 00:44 Medical Decision Making MDM Narrative Medical decision making narrative: Differential diagnosis include intrathoracic trauma CT scan of the chest with spine recons showed evidence of a nondisplaced sternal fracture CT C-spine showed no acute abnormality Vital Signs Vital Signs: Vital Signs Temperature 36.9 C 10/10/24 22:04 Pulse Rate 87 10/10/24 22:04 Respiratory Rate 16 10/10/24 22:04 Blood Pressure 124/76 10/10/24 22:04 Pulse Oximetry 98 10/10/24 22:04 Oxygen Delivery Room Air 10/10/24 22:04 Temperature 36.9 C 10/10/24 22:04 Pulse Rate 75 10/11/24 00:22 Respiratory Rate 18 10/11/24 00:22 Blood Pressure 116/64 10/11/24 00:22 Pulse Oximetry 97 10/11/24 00:44 Oxygen Delivery Nasal Cannula 10/11/24 00:44 Oxygen Flow Rate 2 10/11/24 00:44 Lab Data 10/11/24 00:16 10/11/24 00:16 Labs: Lab Results 10/11/24 Range/Units 00:16 WBC 14.2 H (4.5-10.0) K/mm3 RBC 4.04 L (4.2-5.4) M/mm3 Hgb 12.1 (12.0-15.0) g/dL Hct 37.0 (37.0-47.0) % MCV 91.6 (80-100) fl MCH 30.0 (26-34) pg MCHC 32.7 (32-36) g/dl RDW 13.9 (11.5-14.5) % Plt Count 312 (150-375) k/mm3 MPV 10.1 (7.4-10.4) fl Immature Gran % (Auto) 2.3 H (0-0.5) % Neut % (Auto) 87.2 H (45.5-73.1) % Lymph % (Auto) 7.0 L (18.3-44.2) % [place] % (Auto) 3.2 (2.6-8.5) % Eos % (Auto) 0.0 (0-4.4) % Baso % (Auto) 0.3 (0.2-1.2) % Lymph # (Auto) 0.99 (0.9-3.2) K/mm3 [place] # (Auto) 0.5 (0.1-0.6) K/mm3 Eos # (Auto) 0.0 (0-0.3) K/mm3 Baso # (Auto) 0.0 (0.0-0.1) K/mm3 Abs Immat Gran (auto) 0.33 H (0.00-0.031) K/mm3 Absolute Neuts (auto) 12.4 H (1.3-6.7) K/mm3 Absolute Nucleated RBC 0.000 (0.0-0.012) K/mm3 Nucleated RBC % 0.0 (0.0-0.2) % Sodium 139 (137-145) mmol/L Potassium 4.1 (3.4-5.0) mmol/L Chloride 100 (98-107) mmol/L Carbon Dioxide 25 (22-30) mmol/L Anion Gap 14 H (4-12) mmol/L BUN 13 (7-17) mg/dL Creatinine 0.88 (0.7-1.0) mg/dL Estim Creat Clear Calc Not Reportable Estimated GFR > 60 (59 - ) Glucose 137 H (65-110) mg/dL Calcium 9.3 (8.4-10.2) mg/dL Total Bilirubin 0.4 (0.2-1.3) mg/dL AST 29 (14-36) U/L ALT 34 (6-35) U/L Alkaline Phosphatase 110 (38-126) U/L Troponin I < 0.012 (0.000-0.034) ng/mL Total Protein 8.0 (6.3-8.2) g/dL Albumin 4.5 (3.5-5.1) g/dL Discharge Plan Discharge Clinical Impression: Sternal fracture Patient Disposition: Home, Self-Care Condition: Stable Instructions: Antibiotic Form, How to Use an Incentive Spirometer (ED), Rib Fracture (ED), Blunt Chest Trauma (ED), Chest Wall Pain (ED) Patient Language: Divehi Prescriptions: New hydrocodone-acetaminophen 5-325 mg tablet 1 tablet PO Q6H PRN (Reason: pain) 3 Days Qty: 12 0RF No Action (DME) Home Cervical Traction See Rx Instructions .Route .MEDSUPPLY Qty: 1 0RF Rx Instructions: As directed multivitamin Tablet 1 tablet PO DAILY cholecalciferol (vitamin D3) 50 mcg (2,000 unit) capsule 50 mcg PO DAILY atorvastatin 40 mg tablet 40 mg PO DAILY Qty: 90 3RF levothyroxine 50 mcg tablet See Rx Instructions .ROUTE .COMPLEX Qty: 90 3RF Dose Instruction: TAKE 1 TABLET BY MOUTH EVERY DAY Rx Instructions: TAKE 1 TABLET BY MOUTH EVERY DAY paroxetine HCl 20 mg tablet See Rx Instructions .ROUTE .COMPLEX Qty: 90 1RF Dose Instruction: TAKE 1 TABLET (20MG) BY MOUTH ONCE DAILY Rx Instructions: TAKE 1 TABLET (20MG) BY MOUTH ONCE DAILY pantoprazole 40 mg tablet,delayed release (DR/EC) 40 mg PO QAM Qty: 90 2RF amoxicillin-pot clavulanate 875-125 mg tablet 1 tablet PO BID Qty: 14 0RF Follow-up/Referrals: Ngozi Flaherty MD [Primary Care Provider] - Time of Disposition: 02:21
[2024-10-11 01:24] VITALS: BP 121/70; PULSE 85; RESP 18; O2SAT 96
[2024-10-11 02:11] VITALS: O2SAT 95
[2024-10-11 02:55] VITALS: BP 121/65; PULSE 88; RESP 18; O2SAT 96
== END 2024-10-11 02:56 | disposition home or self-care (01) ==
PROVIDERS: Emergency Provider Emergency Medicine; PCP Family Medicine
DX: S22.20XA Unspecified fracture of sternum, initial encounter for closed fracture (principal); E03.9 Hypothyroidism, unspecified; D50.9 Iron deficiency anemia, unspecified; M19.90 Unspecified osteoarthritis, unspecified site; K21.9 Gastro-esophageal reflux disease without esophagitis; F32.A Depression, unspecified; F41.9 Anxiety disorder, unspecified; Z96.643 Presence of artificial hip joint, bilateral; Z87.891 Personal history of nicotine dependence; Z79.899 Other long term (current) drug therapy; M47.812 Spondylosis without myelopathy or radiculopathy, cervical region; W01.198A Fall on same level from slipping, tripping and stumbling with subsequent striking against other object, initial encounter
CPT/HCPCS: 36415; 71250; 72125; 72128; 72131; 74176; 80053; 84484; 85025; 93005; 96374; 96375; 96376; 99284; J2270; J2405

== ENCOUNTER 2024-12-22 10:36 | Outpatient (CLI) | payer MEDICARE, OTHER, SELFPAY ==
--- NOTE | ~2024-12-22 | MM_ITS ---
EXAMINATION: MM screening anuja BI w addis HISTORY: Screening TECHNIQUE: Craniocaudal and mediolateral oblique 3-D tomosynthesis images were obtained and synthetic 2-D images were generated. CAD analysis was submitted and interpreted. COMPARISON: Comparison to multiple prior studies sequentially, with oldest reviewed study dated 12/07. BREAST PARENCHYMAL COMPOSITION: Dense: The breasts are heterogeneously dense, which may obscure small masses FINDINGS: There is no evidence of suspicious mass, calcification, or architectural distortion to sugg est malignancy in either breast. There has been no suspicious interval change. IMPRESSION: 1. No mammographic evidence of malignancy. 2. Recommend routine screening mammography in one year. BI-RADS Category 1: Negative Reviewed, dictated and finalized at location A.
== END 2024-12-22 10:37 | disposition home or self-care (01) ==
PROVIDERS: PCP Family Medicine; Visit Provider Family Medicine
DX: Z12.31 Encounter for screening mammogram for malignant neoplasm of breast (principal)
CPT/HCPCS: 77063; 77067

== ENCOUNTER 2025-01-16 09:15 | Outpatient (CLI) | payer MEDICARE, OTHER, SELFPAY ==
--- NOTE | ~2025-01-16 | MR_ITS ---
MRI of the brain Clinical History: Syncope, collapse Technique: Axial and sagittal T1-weighted images were acquired. These were followed by axial T2-weigh malika, diffusion weighted, gradient, and FLAIR images. Findings: There is no acute infarct, intracranial hemorrhage, or mass lesion. There are a few small f ocal white matter lesions in the periventricular white matter bilaterally, most likely mild chronic m icrovascular ischemic change. Ventricles and subarachnoid spaces are unremarkable. Orbits are unremarkable. Paranasal sinuses and m astoid air cells are clear. Major intracranial flow voids appear intact. Sagittal midline structures are intact. IMPRESSION: No acute infarct, intracranial hemorrhage, or mass lesion. Minimal presumed chronic microvascular ischemic change. Reviewed, dictated and finalized at location M.
== END 2025-01-16 09:16 | disposition home or self-care (01) ==
LOC: MICIMG 09:16
PROVIDERS: PCP Family Medicine; Visit Provider Family Medicine
DX: I67.82 Cerebral ischemia (principal); Z87.898 Personal history of other specified conditions
CPT/HCPCS: 70551

== ENCOUNTER 2025-01-31 15:11 | Outpatient (CLI) | payer MEDICARE, OTHER, SELFPAY ==
--- NOTE | ~2025-01-31 | XR_ITS ---
Right ankle Technique: AP, oblique, and lateral views were obtained. Clinical History: Pain Findings: Probable tiny avulsion fracture at the lateral malleolus with mild overlying soft tissue sw elling. No other fracture or dislocation seen.. Ankle mortise and other visualized joint spaces are p reserved. Soft tissues are otherwise unremarkable. Impression: Probable tiny avulsion fracture from the tip of the lateral malleolus. Reviewed, dictated and finalized at location M. Impression: Probable tiny avulsion fracture from the tip of the lateral malleolus.
== END 2025-01-31 15:12 | disposition home or self-care (01) ==
LOC: GOSHIMG 15:12
PROVIDERS: PCP Family Medicine; Visit Provider Family Medicine
DX: S93.491A Sprain of other ligament of right ankle, initial encounter (principal); X58.XXXA Exposure to other specified factors, initial encounter
CPT/HCPCS: 73610

== ENCOUNTER 2025-02-20 09:22 | Outpatient (CLI) | payer MEDICARE, OTHER, SELFPAY ==
--- NOTE | ~2025-02-20 | MR_ITS ---
EXAMINATION: MR lower leg RT wo con DATE: 02/20/2025 10:24 INDICATION: Poststenotic lateral right ankle pain and swelling. TECHNIQUE: Magnetic resonance imaging (MRI) of the right lower leg was performed without intravenous contrast. Sequences included axial, sagittal and coronal T1-weighted FSE and fluid sensitive FSE STI R. The contralateral left lower leg is included on the coronal images. COMPARISON: None. FINDINGS: Bone alignment is normal. There is marrow edema at the distal tip of the lateral malleolus likely rel ated to the previous noted small minimally displaced avulsion fracture fragment at the tip of the lat eral malleolus in the region of the footplates of the anterior talofibular and calcaneal fibular liga ments. There is increased signal of less than fluid intensity in the region of the anterior talofibul ar ligament which is not consistent with likely at least partial tear. Assessment of the ligaments an d ankle is however significantly limited by the large avmqs-lg-ezjw of imaging and mild spatial disto rtion resulting from field inhomogeneity at the margins of the field of imaging. There is additional mild marrow edema in the region of the medial neck of the talus along with thickening and increased s ignal of the anterior deep deltoid ligament also suggesting partial tear. Marrow signal is otherwise normal throughout the more proximal right lower leg and throughout the left lower leg on the coronal imaging. No other fracture, reactive edema or pathologic marrow replacing process. Normal symmetric m uscle bulk and signal throughout the bilateral calves. Moderate-sized bilateral Achilles calcaneal sp urs at the distal insertions of the Achilles tendons. The visualized portions of the tendons are othe rwise unremarkable. Joint spaces appear unremarkable. Asymmetric small right ankle joint effusion. No tenosynovitis or other abnormal fluid collections. There are some subcutaneous edema about the media l and lateral sides of the ankle. IMPRESSION: 1. Limited evaluation of the right ankle relative to a standard ankle MRI due to the large field-of-v iew of imaging which extends cephalad to the knee. 2. Marrow edema at the distal tip of the lateral malleolus likely related to the previous noted small minimally displaced cortical avulsion fracture. 2. At least partial tear/moderate grade sprains of the deep deltoid ligament at the medial ankle and anterior talofibular ligament at the lateral ankle. No other definitive ligament tear is identified h owever. Ligaments at the ankle are suboptimally visualized. There is clinical concern would recommend dedicated right ankle MRI for further evaluation. Reviewed, dictated and finalized at location A. IMPRESSION: 1. Limited evaluation of the right ankle relative to a standard ankle MRI due t o the large gwjre-sz-tatc of imaging which extends cephalad to the knee. 2. Marrow edema at the distal tip of the lateral malleolus likely related to th e previous noted small minimally displaced cortical avulsion fracture. 2. At least partial tear/moderate grade sprains of the deep deltoid ligament at the medial ankle and anterior talofibular ligament at the lateral ankle. No ot her definitive ligament tear is identified however. Ligaments at the ankle are suboptimally visualized. There is clinical concern would recommend dedicated ri t ankle MRI for further evaluation.
--- NOTE | ~2025-02-20 | MR_ITS ---
MRI of the right ankle Clinical history: Lateral pain Technique: Coronal proton-density and proton-density fat-sat images, axial proton-density and proton- density fat-sat images, and sagittal proton-density and proton-density fat-sat images were acquired. Findings: Syndesmotic ligaments are intact. There is complete tear of the anterior talofibular ligame nt. Posterior talofibular ligament intact. Calcaneofibular ligament is probably intact. Deltoid ligam ent is intact. Medial flexor tendons and anterior extensor tendons are intact. Achilles tendon intact. Peroneus long us tendon is intact. There is longitudinal split tear of the peroneus brevis tendon at the level of t he lateral malleolus tip. There is probable bone contusion at the lateral malleolus. No osteochondral lesion of the talar dome. Joint spaces are intact. Small tibiotalar and subtalar joint effusions are present. Plantar fascia intact. No other soft tissue mass or fluid collection. There is subcutaneous soft tiss ue edema laterally. Impression: Complete tear of anterior talofibular ligament with mild surrounding subcutaneous soft tissue edema a t the lateral ankle. Probable contusion at the lateral malleolus without evidence of fracture. Longitudinal split tear of the peroneus brevis tendon, as detailed above. Reviewed, dictated and finalized at location . Impression: Complete tear of anterior talofibular ligament with mild surrounding subcutaneo us soft tissue edema at the lateral ankle. Probable contusion at the lateral malleolus without evidence of fracture. Longitudinal split tear of the peroneus brevis tendon, as detailed above.
== END 2025-02-20 09:23 | disposition home or self-care (01) ==
PROVIDERS: PCP Family Medicine; Visit Provider Family Medicine
DX: S93.491A Sprain of other ligament of right ankle, initial encounter (principal); S86.311A Strain of muscle(s) and tendon(s) of peroneal muscle group at lower leg level, right leg, initial encounter; X58.XXXA Exposure to other specified factors, initial encounter
CPT/HCPCS: 73718; 73721

== ENCOUNTER 2025-05-08 10:02 | Outpatient (CLI) | payer MEDICARE, OTHER, SELFPAY ==
--- NOTE | ~2025-05-08 | XR_ITS ---
EXAMINATION: XR finger 5th LT min 2V, 05/08/2025 10:20 CDT HISTORY: S62.647A - Nondisplaced fracture of proximal phalanx of l... COMPARISON: No comparisons available. Findings: Healing fracture proximal aspect proximal phalanx. Moderate degenerative changes. Soft tissues unremarkable. Impression: Healing fracture Reviewed, dictated and finalized at location P. Impression: Healing fracture
--- OUTSIDE RECORDS SUMMARY | 2025-05-08 11:39 | XMS_ITS | Clinical Summary ---
Author Organization [facility] Address [address] [place] [address] Phone Care Team Providers Care Geophysical Manager Name Role Phone Unavailable Primary Care Provider [...] on file Legal Sex Female 3:02 PM BENEFITS ASSISTANT Gender Identity Not on file Sexual Orientation Not on file Last Filed Vital Signs Vital Sign Reading Time Taken Comments Blood Pressure 149/87 08/11/2022 11:05 AM BENEFITS ASSISTANT Pulse 72 08/11/2022 11:05 AM BENEFITS ASSISTANT Temperature 36.5 C (97.7 F) 08/11/2022 11:05 AM BENEFITS ASSISTANT Respiratory Rate - - Oxygen Saturation - - Inhaled Oxygen Concentration - - Weight 76.8 kg (169 lb 4.8 oz) 08/11/2022 11:05 AM BENEFITS ASSISTANT Height 165.1 cm (5' 5) 08/11/2022 11:05 AM BENEFITS ASSISTANT Body Mass Index 28.17 08/11/2022 11:05 AM BENEFITS ASSISTANT Plan of Treatment Health Maintenance Due Date [...] 2006 OSTEOPOROSIS SCREENING 2021 INFLUENZA VACCINE (#1) 2025 COVID-19 Vaccine ( season) 2025, 09/08/2020 RSV VACCINE (60+ or ) (1 - 1-dose 75+ series) 2031 Insurance MEDICARE PART A AND B [facility] [place] [address]
--- OUTSIDE RECORDS SUMMARY | 2025-05-08 11:39 | XMS_ITS | Clinical Summary ---
Author Organization [facility] Address [address] [place] [id number] Care Team Providers Care Engineer Intern Name Role Phone Kate Vanegas MD Primary Care Provider [phone] Allergies No known active allergies Medications simvastatin [...] D) 50,000 unit capsule 11/12/2020 Active calcium-vits T5-E-C8-minerals 166.75 mg- 166.75 unit capsule Take by mouth Active Active Problems Problem Noted Date Diagnosed Date Encounter for preprocedural cardiovascular exami [facility] 12/10/2020 Hyperlipidemia Dietary counseling Immunizations Immunization Administration Dates Next Due Pfizer SARS-CoV-2 Monovalent Vaccination (12+ Yrs) PURPLE 10/07/2020,09/08/2020 Surgical History Surgery Date Site/Laterality Comments RI LIG/TRNSXJ FLP TUBE ABDL/VAG APPR UNI/BI Tubal [...] on file Legal Sex Female 6:38 PM SALOON KEEPER Gender Identity Not on file Sexual Orientation Not on file Obstetrics History Last Filed Vital Signs Vital Sign Reading Time Taken Comments Blood Pressure 144/84 08/10/2021 9:00 AM SALOON KEEPER Pulse 83 08/10/2021 9:00 AM SALOON KEEPER Temperature 37.1 C (98.8 F) 08/10/2021 9:00 AM SALOON KEEPER Respiratory Rate 16 08/10/2021 9:00 AM SALOON KEEPER Oxygen Saturation 96% 08/10/2021 9:00 AM SALOON KEEPER Inhaled Oxygen Concentration - - Weight 73.9 kg (163 lb) 08/10/2021 9:00 AM SALOON KEEPER Height 163.8 cm (5' 4.5) 08/10/2021 9:00 AM SALOON KEEPER Body Mass Index 27.55 08/10/2021 9:00 AM SALOON KEEPER Plan of Treatment Not on file [place] [address] [facility] H[facility]/PPO Address: [address] [address] [place] [address] [facility] Care Teams Engineer Intern Relationship Specialty Start Date End Date Kate Vanegas MD [address] [place] [address] PCP - General Family Medicine 08/07/19
== END 2025-05-08 10:03 | disposition home or self-care (01) ==
PROVIDERS: PCP Family Medicine; Visit Provider Plastic Surgery
DX: S62.647D Nondisplaced fracture of proximal phalanx of left little finger, subsequent encounter for fracture with routine healing (principal); X58.XXXD Exposure to other specified factors, subsequent encounter
CPT/HCPCS: 73140

== ENCOUNTER 2025-05-16 11:19 | Outpatient (CLI) | payer MEDICARE, OTHER, SELFPAY ==
--- NOTE | ~2025-05-16 | CT_ITS ---
EXAMINATION: CT abdomen pelvis w con DATE: 05/16/2025 11:58 INDICATION: Left lower quadrant pain. TECHNIQUE: Computed tomography (CT) of the abdomen and pelvis was performed with 100 cc Omnipaque 350 intravenous contrast. The dose-length product was 612.28 mGy-cm. Automated exposure control and iterative reconstruction technique were employed. COMPARISON: CT dated 10/10/2024 FINDINGS: Lung bases unremarkable. Heart size normal. No significant pleural or pericardial effusion. There is fatty infiltration of the liver. Gallbladder is present. The spleen, pancreas, adrenal glands and kidneys are unremarkable. 16 nonobstructive bowel gas pattern. No significant vascular abnormality. No lymphadenopathy. There are bilateral hip arthroplasties. No significant vascular abnormality. Mild lumbar spondylosis. IMPRESSION: 1. No acute abdominal abnormality. Reviewed, dictated and finalized at location O.
[2025-05-16 11:46] LABS: Estimated Glomerular Filt Rate 55
== END 2025-05-16 11:20 | disposition home or self-care (01) ==
LOC: MICIMG 11:20
PROVIDERS: PCP Nurse Practitioner; Visit Provider Nurse Practitioner
DX: R10.814 Left lower quadrant abdominal tenderness (principal); R10.32 Left lower quadrant pain; R14.0 Abdominal distension (gaseous)
CPT/HCPCS: 74177; Q9967

== ENCOUNTER 2025-05-29 09:43 | Outpatient (CLI) | payer MEDICARE, OTHER, SELFPAY ==
--- NOTE | ~2025-05-29 | XR_ITS ---
PROCEDURE(S): Radiography left hand, minimum 3 views INDICATION(S): Follow-up fracture COMPARISON(S): May 08 TECHNIQUE: 3 radiographic images were submitted for interpretation. FINDINGS: Bones: Again seen is the oblique fracture through the proximal aspect of the proximal phalanx of the first digit. There is mild displacement, with the major fracture fragment displaced laterally and in a palmar direction with respect to the smaller proximal fracture fragment. This involves the articular surface. No significant healing callus formation is seen. There are no destructive lesions or other lesions identified. Joints: There are no dislocations identified. 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 IMPRESSION: Fracture unchanged. No significant healing callus formation is seen. Reviewed, dictated and finalized at location A. N SHAMPOO ASSISTANT IMPRESSION: Fracture unchanged. No significant healing callus formation is seen .
--- OUTSIDE RECORDS SUMMARY | 2025-05-29 10:56 | XMS_ITS | Encounter Summary ---
Author Organization [facility] Address [address] [place] [address] Care Team Providers Care Junior Loan Processor Name Role Phone Unavailable Primary Care Provider Unavailabl e Encounter Details Date Type Department Care Team (Late st Contact Info) Description 05/16/2025 Lab Requisition [facility] - DermPath Lab [address] [place] [id number] Florencia Montgomery MD [address] [facility] [address] [address] [place] [address] Neoplasm of uncertain behavior of skin Social History Tobacco Use Types Packs/Day Years Used Date Smoking Tobacco: Never Assessed Comments Unknown Sex and Gender Information Value Date Recorded Sex Assigned at Not on file Legal Sex Female 6:15 AM CORPORATE EVENTS DIRECTOR Gender Identity Not on file Sexual Orientation Not on file documented as of this encounter Plan of Treatment Not on file documented as of this encounter Procedures Procedure Name Priority Date/Time Associated Diagnosis Comments DERMATOPATHOLOGY Routine 05/16/2025 1:30 PM CDT Neoplasm of uncertain behavior of skin documented in this encounter Results * DERMATOPATHOLOGY (05/16/2025 1:30 PM CDT) Case Report Dermatopathology Report Case: [id number] Authorizing Provider: Florencia Montgomery MD Collected: 05/16/2025 01:30 PM Ordering Location: [facility] - Received: 05/17/2025 02:01 PM DermPath Lab Pathologist: Ysabel Rockwell MD Specimen: Skin, left posterior upper arm 2:32 PM CDT DERMATOPATHOLOGY LABORATORY Final Diagnosis Specimen A. 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 The specimen consists of a shave biopsy measuring 8x7x1 mm. Jar 0. 2:32 PM CDT DERMATOPATHOLOGY LABORATORY Microscopic Description Specimen A. SKIN, left posterior upper arm: The epidermis shows parakeratosis, full thickness disorderly maturation of keratinocytes, mitoses at different levels, and dyskeratotic cells. 2:32 PM CDT DERMATOPATHOLOGY LABORATORY Disclaimer An external and internal positive and negative controls are appropriate for the histochemical, immunohistochemical and immunofluorescence stain(s) in this case (if any), except where stated explicitly. The performance characteristics of the stain(s) cited in this report were developed and its performance characteristic determined by the Dermatopathology Laboratory at [facility], directed by Dr. Namita Rockwell. These tests need not be, and therefore are not, approved by the [place] Food and Drug Administration. The tests are used for clinical purposes. Billing Codes Specimen Charges Stain Charges 37208 1 2:32 PM CDT DERMATOPATHOLOGY LABORATORY Embedded Images 2:32 PM CDT DERMATOPATHOLOGY LABORATORY Pathology/Cytolo gy TISSUE SPECIMEN FROM SKIN / Unknown 05/16/2025 1:30 PM CDT 05/17/2025 2:01 PM CDT us lForencia Montgomery MD LAB - PATHOLOGY/CYTOLOGY ORD ERABLES Final Result DERMATOPATHOLOGY LABORATORY [facility] - Department of Dermatology [address], [address] [phone] documented in this encounter Visit Diagnoses Diagnosis Neoplasm of uncertain behavior of skin documented in this encounter
--- OUTSIDE RECORDS SUMMARY | 2025-05-29 10:56 | XMS_ITS | Clinical Summary ---
Author Organization [facility] Address [address] [place] [address] Phone Care Team Providers Care Milling/Polishing Operator Name Role Phone Unavailable Primary Care Provider [...] on file Legal Sex Female 3:02 PM GEOSCIENCE LABORATORY TECHNICIAN Gender Identity Not on file Sexual Orientation Not on file Last Filed Vital Signs Vital Sign Reading Time Taken Comments Blood Pressure 149/87 08/11/2022 11:05 AM GEOSCIENCE LABORATORY TECHNICIAN Pulse 72 08/11/2022 11:05 AM GEOSCIENCE LABORATORY TECHNICIAN Temperature 36.5 C (97.7 F) 08/11/2022 11:05 AM GEOSCIENCE LABORATORY TECHNICIAN Respiratory Rate - - Oxygen Saturation - - Inhaled Oxygen Concentration - - Weight 76.8 kg (169 lb 4.8 oz) 08/11/2022 11:05 AM GEOSCIENCE LABORATORY TECHNICIAN Height 165.1 cm (5' 5) 08/11/2022 11:05 AM GEOSCIENCE LABORATORY TECHNICIAN Body Mass Index 28.17 08/11/2022 11:05 AM GEOSCIENCE LABORATORY TECHNICIAN Plan of Treatment Health Maintenance Due Date [...] 2031 Insurance MEDICARE PART A AND B [facility] [place] [address]
--- OUTSIDE RECORDS SUMMARY | 2025-05-29 10:56 | XMS_ITS | Clinical Summary ---
Author Organization [facility] Address [address] [place] [address] Care Team Providers Care Pouncing Machine Operator Name Role Phone Kate Vanegas MD Primary Care Provider Allergies No known active allergies Medications simvastatin [...] D) 50,000 unit capsule 11/12/2020 Active calcium-vits H9-Q-F8-minerals 166.75 mg- 166.75 unit capsule Take by mouth Active Active Problems Problem Noted Date Diagnosed Date Encounter for preprocedural cardiovascular exami [facility] 12/10/2020 Hyperlipidemia Dietary counseling Immunizations Immunization Administration Dates Next Due Pfizer SARS-CoV-2 Monovalent Vaccination (12+ Yrs) PURPLE 10/07/2020,09/08/2020 Surgical History Surgery Date Site/Laterality Comments [place] LIG/TRNSXJ FLP TUBE ABDL/VAG APPR UNI/BI Tubal [...] on file Legal Sex Female 6:38 PM EDUCATIONAL DIAGNOSTICIAN Gender Identity Not on file Sexual Orientation Not on file Last Filed Vital Signs Vital Sign Reading Time Taken Comments Blood Pressure 144/84 08/10/2021 9:00 AM EDUCATIONAL DIAGNOSTICIAN Pulse 83 08/10/2021 9:00 AM EDUCATIONAL DIAGNOSTICIAN Temperature 37.1 C (98.8 F) 08/10/2021 9:00 AM EDUCATIONAL DIAGNOSTICIAN Respiratory Rate 16 08/10/2021 9:00 AM EDUCATIONAL DIAGNOSTICIAN Oxygen Saturation 96% 08/10/2021 9:00 AM EDUCATIONAL DIAGNOSTICIAN Inhaled Oxygen Concentration - - Weight 73.9 kg (163 lb) 08/10/2021 9:00 AM EDUCATIONAL DIAGNOSTICIAN Height 163.8 cm (5' 4.5) 08/10/2021 9:00 AM EDUCATIONAL DIAGNOSTICIAN Body Mass Index 27.55 08/10/2021 9:00 AM EDUCATIONAL DIAGNOSTICIAN Plan of Treatment Not on file Insurance [facility] CHOICE PLUS MEDICARE [facility] Care Teams Pouncing Machine Operator Relationship Specialty Start Date End Date Kate Vanegas MD [address] [place] [address] PCP - General Family Medicine 08/07/19
--- OUTSIDE RECORDS SUMMARY | 2025-05-29 10:56 | XMS_ITS | Clinical Summary ---
Author Organization [facility] Address [address] [facility] [address] Care Team Providers Care Search Analyst Name Role Phone Unavailable Primary Care Provider Unavailabl e Source Comments [facility],non-owned Affiliates and Associated Physician Practices is amultiple site organization consisting of ambulatory clinics and hospital sitesin [place], [place], [place] and [place]. This disclosure is being madepursuant to the Care Everywhere program and may not contain all information available regarding this patient. 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 Gender Identity Not on file Sexual Orientation Not on file Plan of Treatment Health Maintenance Due Date Last Done Comments BONE DENSITY TESTING 1956 COLOGUARD (AGES 45-75) - COL ON CA SCREENING 1956 COLON MONITORING 1956 COLONOSCOPY - COLON CA SCREENING 1956 CT COLONOGRAPHY - COLON CA SCREENING 1956 Colorectal Cancer Screening 1956 FIT - COLON CA SCREENING 1956 FLEX SIG - COLON CA SCREENING 1956 LIPID TESTING 1956 MAMMOGRAM 1956 MEDICARE AWV 12 MONTHS 1956 HEPATITIS C SCREENING 07/04/1974 DTAP/TDAP/TD VACCINES (1 - Tdap) 1975 PNEUMOCOCCAL VACCINE 50+ (1 of 1 - PCV) 2006 ZOSTER VACCINE (1 of 2) 2006 DEPRESSION SCREENING 07/26/2024 COVID-19 VACCINE (2023-2 5 season) 2025 INFLUENZA VACCINE (#1) 2025 Respiratory Syncytial Virus (RSV) Vaccine Pt: or over 60 yrs (1 - 1-dose 75+ series) 2031 HEPATITIS B VACCINE Aged Out No longe r eligible based on patient's age to complete this topic HIB VACCINE Aged Out No longer eligi ble based on patient's age to complete this topic HPV VACCINE Aged Out No longer eligi ble based on patient's age to complete this topic MENINGOCOCCAL (Group B) VACC INE SHARED DECISION-MAKING Aged Out No longer eligibl e based on patient's age to complete this topic MENINGOCOCCAL GROUPS A/C/Y/W VACCINE Aged Out No longer eligible b ased on patient's age to complete this topic Procedures Procedure Name Priority Date/Time Associated Diagnosis Comments DERMATOPATHOLOGY Routine 05/16/2025 1:30 PM CDT Neoplasm of uncertain behavior of skin from Last 3 Months Results * DERMATOPATHOLOGY (05/16/2025 1:30 PM CDT) Case Report Dermatopathology Report Case: [id number] Authorizing Provider: Florencia Montgomery MD Collected: 05/16/2025 01:30 PM Ordering Location: [facility] - Received: 05/17/2025 02:01 PM DermPath Lab [...] characteristic determined by the Dermatopathology Laboratory at [facility], directed by Dr. Namita Rockwell. These tests need not be, and therefore are not, approved by the [place] Food and Drug Administration. The tests are used for clinical purposes. Billing Codes Specimen Charges Stain Charges 00866 1 2:32 PM CDT DERMATOPATHOLOGY LABORATORY Embedded Images 2:32 PM CDT DERMATOPATHOLOGY LABORATORY Pathology/Cytolo gy TISSUE SPECIMEN FROM SKIN / Unknown 05/16/2025 1:30 PM CDT 05/17/2025 2:01 PM CDT Florencia Montgomery MD LAB - PATHOLOGY/CYTOLOGY ORD ERABLES Final Result DERMATOPATHOLOGY LABORATORY [facility] - Department of Dermatology [address], [address] [phone] from Last 3 [place] [address] MEDICARE Member Subscriber Plan / Payer (Ef fective 2021-Present) Name:Emiliana Moeller Member ID:[id number] Relation to Subscriber:Self Name:Emiliana Moeller Subscriber ID:[id number] Payer ID:Not on file Group ID:Not on file Type:Medicare Address: [facility] [address] [phone] [facility] [place] [address]
== END 2025-05-29 09:44 | disposition home or self-care (01) ==
PROVIDERS: PCP Family Medicine; Visit Provider Plastic Surgery
DX: S62.647A Nondisplaced fracture of proximal phalanx of left little finger, initial encounter for closed fracture (principal); X58.XXXA Exposure to other specified factors, initial encounter
CPT/HCPCS: 73130

== ENCOUNTER 2025-06-05 14:04 | Outpatient (CLI) | payer MEDICARE, OTHER, SELFPAY ==
--- NOTE | ~2025-06-05 | XR_ITS ---
EXAM/PROCEDURE: XR barium swallow modified HISTORY: R13.12 - Dysphagia, oropharyngeal phase COMPARISON: None available. TECHNIQUE: Standard technique for barium swallow performed Fluoroscopy time: 0.5 minutes Number of images: 1 DAP: 0.391 shahid per square centimeter FINDINGS: No aspiration observed. IMPRESSION: No aspiration observed. See also speech therapist's notes for complete evaluation. Reviewed, dictated and finalized at location A. ER COUNSELOR IMPRESSION: No aspiration observed. See also speech therapist's notes for complete evaluati on.
--- OUTSIDE RECORDS SUMMARY | 2025-06-05 14:11 | XMS_ITS | Clinical Summary ---
Author Organization [facility] Address [address] [place] [address] Phone Care Team Providers Care Software Security Consultant Name Role Phone Unavailable Primary Care Provider [...] on file Legal Sex Female 3:02 PM PLASTER BLOCK LAYER Gender Identity Not on file Sexual Orientation Not on file Last Filed Vital Signs Vital Sign Reading Time Taken Comments Blood Pressure 149/87 08/11/2022 11:05 AM PLASTER BLOCK LAYER Pulse 72 08/11/2022 11:05 AM PLASTER BLOCK LAYER Temperature 36.5 C (97.7 F) 08/11/2022 11:05 AM PLASTER BLOCK LAYER Respiratory Rate - - Oxygen Saturation - - Inhaled Oxygen Concentration - - Weight 76.8 kg (169 lb 4.8 oz) 08/11/2022 11:05 AM PLASTER BLOCK LAYER Height 165.1 cm (5' 5) 08/11/2022 11:05 AM PLASTER BLOCK LAYER Body Mass Index 28.17 08/11/2022 11:05 AM PLASTER BLOCK LAYER Plan of Treatment Health Maintenance Due Date [...] 2031 Insurance MEDICARE PART A AND B [facility] [place] [address]
--- OUTSIDE RECORDS SUMMARY | 2025-06-05 14:11 | XMS_ITS | Clinical Summary ---
Author Organization [facility] Address [address] [place] [address] Care Team Providers Care Slip Filler Name Role Phone Kate Vanegas MD Primary Care Provider [phone] Allergies No known active allergies Medications simvastatin [...] D) 50,000 unit capsule 11/12/2020 Active calcium-vits R8-X-R8-minerals 166.75 mg- 166.75 unit capsule Take by mouth Active Active Problems Problem Noted Date Diagnosed Date Encounter for preprocedural cardiovascular exami [facility] 12/10/2020 Hyperlipidemia Dietary counseling Immunizations Immunization Administration Dates Next Due Pfizer SARS-CoV-2 Monovalent Vaccination (12+ Yrs) PURPLE 10/07/2020,09/08/2020 Surgical History Surgery Date Site/Laterality Comments ID LIG/TRNSXJ FLP TUBE ABDL/VAG APPR UNI/BI Tubal [...] on file 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 Gender Identity Not on file Sexual Orientation Not on file Last Filed Vital Signs Vital Sign Reading Time Taken Comments Blood Pressure 144/84 08/10/2021 9:00 AM FITNESS DIRECTOR Pulse 83 08/10/2021 9:00 AM FITNESS DIRECTOR Temperature 37.1 C (98.8 F) 08/10/2021 9:00 AM FITNESS DIRECTOR Respiratory Rate 16 08/10/2021 9:00 AM FITNESS DIRECTOR Oxygen Saturation 96% 08/10/2021 9:00 AM FITNESS DIRECTOR Inhaled Oxygen Concentration - - Weight 73.9 kg (163 lb) 08/10/2021 9:00 AM FITNESS DIRECTOR Height 163.8 cm (5' 4.5) 08/10/2021 9:00 AM FITNESS DIRECTOR Body Mass Index 27.55 08/10/2021 9:00 AM FITNESS DIRECTOR Plan of Treatment Not on file Insurance [facility] CHOICE PLUS MEDICARE [facility] Address: [address] [address] [place] [address] [facility] Care Teams Slip Filler Relationship Specialty Start Date End Date Kate Vanegas MD [address] [place] [address] PCP - General Family Medicine 08/07/19
--- OUTSIDE RECORDS SUMMARY | 2025-06-05 14:11 | XMS_ITS | Clinical Summary ---
Author Organization [facility] Address [address] [place] [address] Care Team Providers Care Rolling Attendant Name Role Phone Unavailable Primary Care Provider Unavailabl e Source Comments [facility],non-owned Affiliates and Associated Physician Practices is amultiple site organization consisting of ambulatory clinics and hospital sitesin [place], [place], [place] and [place]. This disclosure is being madepursuant to the Care Everywhere program and may not contain all information available regarding this patient. 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 Namita Rockwell. These tests need not be, and therefore are not, approved by the [place] Food and Drug Administration. The tests are used for clinical purposes. Billing Codes Specimen Charges Stain Charges 73116 1 2:32 PM CDT DERMATOPATHOLOGY LABORATORY Embedded Images 2:32 PM CDT DERMATOPATHOLOGY LABORATORY Pathology/Cytolo gy TISSUE SPECIMEN FROM SKIN / Unknown 05/16/2025 1:30 PM CDT 05/17/2025 2:01 PM CDT Florencia Montgomery MD LAB - PATHOLOGY/CYTOLOGY ORD ERABLES Final Result DERMATOPATHOLOGY LABORATORY [facility] - Department of Dermatology [address], [address] [phone] from Last 3 [place] [address] MEDICARE Member Subscriber Plan / Payer (Ef fective 2021-Present) Name:Emiliana Moeller Member ID:[id number] Relation to Subscriber:Self Name:Emiliana Moeller Subscriber ID:[id number] Payer ID:Not on file Group ID:Not on file Type:Medicare Address: [facility] [address] [phone] [place] [address]
--- OUTSIDE RECORDS SUMMARY | 2025-06-05 14:11 | XMS_ITS | Encounter Summary ---
Author Organization [facility] Address [address] [facility] [place] [address] Care Team Providers Care Record Changer Assembler Name Role Phone Unavailable Primary Care Provider Unavailabl e Encounter Details Date Type Department Care Team (Late st Contact Info) Description 05/16/2025 Lab Requisition [facility] - DermPath Lab [address] [facility] [place] [phone] Florencia Montgomery MD [address] [facility] [address] [place] [address] Neoplasm of uncertain behavior of skin Social History Tobacco Use Types Packs/Day Years Used Date Smoking Tobacco: Never Assessed Comments Unknown Sex and Gender Information Value Date Recorded Sex Assigned at Not on file Legal Sex Female 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 Gender Identity Not on file Sexual Orientation Not on file documented as of this encounter Plan of Treatment Not on file documented as of this encounter Procedures Procedure Name Priority Date/Time Associated Diagnosis Comments DERMATOPATHOLOGY Routine 05/16/2025 1:30 PM CDT Neoplasm of uncertain behavior of skin documented in this encounter Results * DERMATOPATHOLOGY (05/16/2025 1:30 PM CDT) Case Report Dermatopathology Report Case: [id number] Authorizing Provider: Florencia Montgomery MD Collected: 05/16/2025 01:30 PM Ordering Location: [facility]ician [facility] - Received: 05/17/2025 02:01 PM DermPath [...] determined by the Dermatopathology Laboratory at [facility], directed by Dr. Namita Rockwell. These tests need not be, and therefore are not, approved by the [place] Food and Drug Administration. The tests are used for clinical purposes. Billing Codes Specimen Charges Stain Charges 34379 1 2:32 PM CDT DERMATOPATHOLOGY LABORATORY Embedded Images 2:32 PM CDT DERMATOPATHOLOGY LABORATORY Pathology/Cytolo gy TISSUE SPECIMEN FROM SKIN / Unknown 05/16/2025 1:30 PM CDT 05/17/2025 2:01 PM CDT us Florencia Montgomery MD LAB - PATHOLOGY/CYTOLOGY ORD ERABLES Final Result DERMATOPATHOLOGY LABORATORY [facility] - Department of Dermatology [address], [address] [phone] documented in this encounter Visit Diagnoses Diagnosis Neoplasm of uncertain behavior of skin documented in this encounter
--- NOTE | 2025-06-05 14:55 | REHSTMBS ---
Assessment and note entered by Sarah Gurrola, CRIMPER OPERATOR Modified Barium Swallow Evaluation Feeding Type Recommended Oral Food Consistency Regular, Level 7 Liquid Consistency Thin (0) ST Clinical Summary The patient is a 69 year old female referred for a MBS study secondary to persistent dysphagia complaints of a noted sticking sensation and at times coughing with liquids. The patient has a history of GERD and is being followed for this condition. The patient was positioned in a lateral view and presented the following consistencies: 5cc/tsp thin liquid barium, cup trials thin liquid barium, pudding mixed with barium paste, and cracker coated with barium paste. Oral Stage: Oral preparation and transit was viewed to be timely for all consistencies. Pharyngeal Stage: When presented all the above consistencies swallow initiation was completed in a timely manner without viewed aspiration or penetration. No residual was viewed to remain in the valleculae or pyriform sinus. Recommend consideration of a barium swallow given patients reported symptoms. Thank you for the consult. Recommend 1. Regular Diet / level 7 2. Thin Liquid / level 0 3. Upright with meals.
== END 2025-06-05 14:05 | disposition home or self-care (01) ==
PROVIDERS: Visit Provider Nurse Practitioner
DX: R13.12 Dysphagia, oropharyngeal phase (principal); T17.308A Unspecified foreign body in larynx causing other injury, initial encounter
CPT/HCPCS: 74230; 92611

== ENCOUNTER 2025-06-06 08:47 | Outpatient (CLI) | payer MEDICARE, OTHER, SELFPAY ==
--- NOTE | ~2025-06-06 | XR_ITS ---
EXAM/PROCEDURE: XR UGIAC w barium swallow HISTORY: ACID REFLUX COMPARISON: None available. Last attended: 2.2 minutes DAP: 2.8 g/sq cm Number of Images: 32 TECHNIQUE: Standard technique for air contrast upper GI barium swallow performed. Thick and thin barium were used following administration of effervescent crystals. 1.3 cm barium pill also administered. FINDINGS: Tertiary contractions and small hiatal hernia noted; the esophagus otherwise appears grossly normal. Evaluation of the stomach limited due to rapid transit of contrast into the small bowel. No large ulceration or mass identified. Mild rugal fold thickening appears to present in the mid body and fundal portion of the stomach. 1.3 cm barium pill passed rapidly through the esophagus with no evidence of delay or obstruction. On post exam overhead images, contrast is artery extending through most of the small bowel and possibly into the large bowel. IMPRESSION: 1. Small hiatal hernia. Tertiary contractions consistent with esophagitis. 1.3 cm barium pill passed rapidly through the esophagus with no evidence of stricture stenosis or soft tissue mass. 2. Limited evaluation of the stomach with possible rugal fold thickening which could be associated with gastritis. Evaluation of the porus is nondiagnostic. 3. Rapid transit of contrast, extending to the large bowel within 30 minutes. Correlate with clinical presentation. COMMENT: With limitations noted above, consider endoscopic evaluation for optimal sensitivity particularly of small ulcerations or peptic ulcer disease are a clinical concern. Reviewed, dictated and finalized at location A. ING CONSULTANT IMPRESSION: 1. Small hiatal hernia. Tertiary contractions consistent with esophagitis. 1.3 cm barium pill passed rapidly through the esophagus with no evidence of strictu re stenosis or soft tissue mass. 2. Limited evaluation of the stomach with possible rugal fold thickening which could be associated with gastritis. Evaluation of the porus is nondiagnostic. 3. Rapid transit of contrast, extending to the large bowel within 30 minutes. C orrelate with clinical presentation. COMMENT: With limitations noted above, consider endoscopic evaluation for optim al sensitivity particularly of small ulcerations or peptic ulcer disease are a clinical concern.
--- OUTSIDE RECORDS SUMMARY | 2025-06-06 09:15 | XMS_ITS | Clinical Summary ---
Author Organization [facility] Address [address] [place] [address] Phone Care Team Providers Care Town Marshal Name Role Phone Unavailable Primary Care Provider [...] on file Legal Sex Female 3:02 PM PERCUSSION INSTRUMENT TUNER Gender Identity Not on file Sexual Orientation Not on file Last Filed Vital Signs Vital Sign Reading Time Taken Comments Blood Pressure 149/87 08/11/2022 11:05 AM PERCUSSION INSTRUMENT TUNER Pulse 72 08/11/2022 11:05 AM PERCUSSION INSTRUMENT TUNER Temperature 36.5 C (97.7 F) 08/11/2022 11:05 AM PERCUSSION INSTRUMENT TUNER Respiratory Rate - - Oxygen Saturation - - Inhaled Oxygen Concentration - - Weight 76.8 kg (169 lb 4.8 oz) 08/11/2022 11:05 AM PERCUSSION INSTRUMENT TUNER Height 165.1 cm (5' 5) 08/11/2022 11:05 AM PERCUSSION INSTRUMENT TUNER Body Mass Index 28.17 08/11/2022 11:05 AM PERCUSSION INSTRUMENT TUNER Plan of Treatment Health Maintenance Due Date [...] 2031 Insurance MEDICARE PART A AND B [facility] [place] [address]
--- OUTSIDE RECORDS SUMMARY | 2025-06-06 09:15 | XMS_ITS | Clinical Summary ---
Author Organization [facility] Address [address] [facility] [place] [address] Care Team Providers Care Branch Director Name Role Phone Unavailable Primary Care Provider Unavailabl e Source Comments [facility],non-owned Affiliates and Associated Physician Practices is amultiple site organization consisting of ambulatory clinics and hospital sitesin [place], [place], [place] and [place]. This disclosure is being madepursuant to the Care Everywhere program and may not contain all information available regarding this patient. 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 Namita Rockwell. These tests need not be, and therefore are not, approved by the [place] Food and Drug Administration. The tests are used for clinical purposes. Billing Codes Specimen Charges Stain Charges 75777 1 2:32 PM CDT DERMATOPATHOLOGY LABORATORY Embedded Images 2:32 PM CDT DERMATOPATHOLOGY LABORATORY Pathology/Cytolo gy TISSUE SPECIMEN FROM SKIN / Unknown 05/16/2025 1:30 PM CDT 05/17/2025 2:01 PM CDT Florencia Montgomery MD LAB - PATHOLOGY/CYTOLOGY ORD ERABLES Final Result DERMATOPATHOLOGY LABORATORY [facility] - Department of Dermatology [address] [phone] from Last 3 Mon[place] [address] MEDICARE Member Subscriber Plan / Payer (Ef fective 2021-Present) Name:Emiliana Moeller Member ID:[id number] Relation to Subscriber:Self Name:Emiliana Moeller Subscriber ID:[id number] Payer ID:Not on file Group ID:Not on file Type:Medicare Address: [facility] [address] [phone] [facility] [address]
--- OUTSIDE RECORDS SUMMARY | 2025-06-06 09:15 | XMS_ITS | Clinical Summary ---
Author Organization [facility] Address [address] [place] [address] Care Team Providers Care Solar Systems Designer Name Role Phone Kate Vanegas MD Primary Care Provider [phone] Allergies No known active allergies Medications simvastatin [...] D) 50,000 unit capsule 11/12/2020 Active calcium-vits J8-D-P5-minerals 166.75 mg- 166.75 unit capsule Take by mouth Active Active Problems Problem Noted Date Diagnosed Date Encounter for preprocedural cardiovascular exami [facility] 12/10/2020 Hyperlipidemia Dietary counseling Immunizations Immunization Administration Dates Next Due Pfizer SARS-CoV-2 Monovalent Vaccination (12+ Yrs) PURPLE 10/07/2020,09/08/2020 Surgical History Surgery Date Site/Laterality Comments [place] LIG/TRNSXJ FLP TUBE ABDL/VAG APPR UNI/BI Tubal [...] on file Legal Sex Female 6:38 PM MEDICAL OFFICE ASST Gender Identity Not on file Sexual Orientation Not on file Last Filed Vital Signs Vital Sign Reading Time Taken Comments Blood Pressure 144/84 08/10/2021 9:00 AM MEDICAL OFFICE ASST Pulse 83 08/10/2021 9:00 AM MEDICAL OFFICE ASST Temperature 37.1 C (98.8 F) 08/10/2021 9:00 AM MEDICAL OFFICE ASST Respiratory Rate 16 08/10/2021 9:00 AM MEDICAL OFFICE ASST Oxygen Saturation 96% 08/10/2021 9:00 AM MEDICAL OFFICE ASST Inhaled Oxygen Concentration - - Weight 73.9 kg (163 lb) 08/10/2021 9:00 AM MEDICAL OFFICE ASST Height 163.8 cm (5' 4.5) 08/10/2021 9:00 AM MEDICAL OFFICE ASST Body Mass Index 27.55 08/10/2021 9:00 AM MEDICAL OFFICE ASST Plan of Treatment Not on file Insurance [facility] CHOICE PLUS [facility] HMO/PPO Address: [address] [address] [place] [address] MEDICARE [facility] Address: [address] [address] [place] [address] [facility] Care Teams Solar Systems Designer Relationship Specialty Start Date End Date Kate Vanegas MD [address] [place] [address] PCP - General Family Medicine 08/07/19
--- OUTSIDE RECORDS SUMMARY | 2025-06-06 09:15 | XMS_ITS | Encounter Summary ---
Author Organization [facility] Address [address] [place] [address] Care Team Providers Care Drying Machine Tender Name Role Phone Unavailable Primary Care Provider Unavailabl e Encounter Details Date Type Department Care Team (Late st Contact Info) Description 05/16/2025 Lab Requisition [facility] - DermPath Lab [address] [place] [id number] Florencia Montgomery MD [address] [facility] [address] [place] [address] Neoplasm of uncertain behavior of skin Social History Tobacco Use Types Packs/Day Years Used Date Smoking Tobacco: Never Assessed Comments Unknown Sex and Gender Information Value Date Recorded Sex Assigned at Not on file Legal Sex Female 6:15 AM DISTRIBUTION ANALYST Gender Identity Not on file Sexual Orientation Not on file documented as of this encounter Plan of Treatment Not on file documented as of this encounter Procedures Procedure Name Priority Date/Time Associated Diagnosis Comments DERMATOPATHOLOGY Routine 05/16/2025 1:30 PM CDT Neoplasm of uncertain behavior of skin documented in this encounter Results * DERMATOPATHOLOGY (05/16/2025 1:30 PM CDT) Case Report Dermatopathology Report Case: [id number] Authorizing Provider: Florencia Montgomery MD Collected: 05/16/2025 01:30 PM Ordering Location: [facility] - Received: 05/17/2025 02:01 PM DermPath Lab [...] characteristic determined by the Dermatopathology Laboratory at [facility], directed by Dr. Namita Rockwell. These tests need not be, and therefore are not, approved by the [place] Food and Drug Administration. The tests are used for clinical purposes. Billing Codes Specimen Charges Stain Charges 79892 1 2:32 PM CDT DERMATOPATHOLOGY LABORATORY Embedded Images 2:32 PM CDT DERMATOPATHOLOGY LABORATORY Pathology/Cytolo gy TISSUE SPECIMEN FROM SKIN / Unknown 05/16/2025 1:30 PM CDT 05/17/2025 2:01 PM CDT us Florencia Montgomery MD LAB - PATHOLOGY/CYTOLOGY ORD ERABLES Final Result DERMATOPATHOLOGY LABORATORY [facility] - Department of Dermatology [address], [address] [phone] documented in this encounter Visit Diagnoses Diagnosis Neoplasm of uncertain behavior of skin documented in this encounter
== END 2025-06-06 08:48 | disposition home or self-care (01) ==
LOC: ANHIMG 08:48
PROVIDERS: Visit Provider Nurse Practitioner
DX: K44.9 Diaphragmatic hernia without obstruction or gangrene (principal); K21.9 Gastro-esophageal reflux disease without esophagitis; R13.10 Dysphagia, unspecified; R10.13 Epigastric pain; R13.12 Dysphagia, oropharyngeal phase
CPT/HCPCS: 74246